=== PATIENT | female | born 1980 | race African-American/Black ===

== ENCOUNTER 2017-03-03 18:42 | Inpatient (IN) ==
[2017-03-03] MEDS ORDERED: ALBUTEROL/IPRATROPIUM 3 ML NEB RESP TX STA (19:28)
[2017-03-03] MEDS ORDERED: ONDANSETRON 4 MG/2 ML VIAL IV STA (19:28)
--- NOTE | 2017-03-03 19:34 | Emergency Department Note ---
Arrival - Arrival Chief Complaint: Upper Respiratory Stated Complaint: cold/hot at the same time ED Nursing Triage Note: C/O Productive cough with green sputum/ body aches and sorethroat. Onset 2-3 days ago. Pt denies fever. Pt reports that she does PD and reports that she has not had abd pain or cloudy dialysate Mode of Arrival: Wheelchair Limitations: No Limitations Source: Patient Time Seen by Provider: 03/03/17 19:28 - History of Present Illness HPI Narrative: This 36-year-old black female home peritoneal dialysis patient presents with 3 days of body aches, chills, productive cough of discolored sputum, shortness of breath, and sore throat. Patient has not had any significant temperature spikes , chest pain, nausea, or vomiting. She states she has had no difficulty with peritoneal dialysis in the last several days and does not have any complaints referred to the abdomen. She is on dialysis for lupus treated with Plaquenil and steroids and is anuric. Currently she does appear uncomfortable. Onset (ago): day(s) (Patient presents 3 days post onset of symptoms) Date of Last Menstrual Period: one week ago Allergies/Adverse Reactions: Allergies Allergy/AdvReac Type Severity Reaction Status Date / Time No Known Allergies Allergy Verified 03/03/17 19:03 Home Medications: Home Medications Medication Instructions Recorded Confirmed Type Aspirin [Children's Aspirin] 81 mg PO DAILY 12/25/14 11/25/16 History Docusate Sodium 100 mg PO DAILY 12/25/14 11/25/16 History Ferrous Sulfate [Ferrous Sulfate 325 mg PO DAILY 12/25/14 11/25/16 History Cap] Hydroxychloroquine [Plaquenil] 200 mg PO DAILY 12/25/14 11/25/16 History Sevelamer Carbonate [Renvela] 800 mg PO TID 12/25/14 11/25/16 History predniSONE [Alesha] 5 mg PO DAILY 12/25/14 11/25/16 History Calcium Acetate 667 mg PO TID 12/31/15 11/25/16 History Methoxy Peg-Epoetin Beta [Mircera] 1 vial IM DIRECTED 12/31/15 11/25/16 History Levothyroxine Tab [Synthroid Tab] 200 mcg PO DAILY@0700 01/12/16 11/25/16 History Calcitriol [Rocaltrol] 0.5 mcg PO BEDTIME 06/30/16 11/25/16 History Multivitamin (Berocca) [Berocca] 1 tablet PO DAILY 06/30/16 11/25/16 History Metoprolol Succinate Xl [Toprol Xl] 25 mg PO BID #60 tablet 07/12/16 11/25/16 Rx HYDROcodone/ACETAMIN 7.5-325 1 tablet PO Q6H PRN #10 11/25/16 Rx [[place] 7.5-325] Sulfameth/Trimeth 800-160 Tab 1 tablet PO BID #28 tablet 11/25/16 Rx [Bactrim DS Tab] Review of System - Review of System 12 point system: reviewed and no additional remarkable complaints except as stated - Review of System Constitutional: Present: as per HPI Respiratory: Present: as per HPI Cardiovascular: Present: as per HPI Gastrointestinal: Present: as per HPI Medical,Surgical,& Family Hx - Medical History Cardio: History of: CHF (and cardiomyopathy), Cardiovascular Problems (sbp normally 80s) No history of: CAD, Hypertension, [place] Neurology: History of: Peripheral Neuropathy No history of: Seizures Endocrine: History of: Thyroid Disorder (hypothyroidism) Rheumatology: History of;: Systemic Lupus Erythematosus, Rheumatological Problems (lupus) Renal: History of: Dialysis (end-stage renal disease secondary to SLE, Peritoneal DIALYSIS qid), Renal Failure (secondary to lupus) Musculoskeletal: History of: Degenerative Disk Disease (DJD) No history of: Amputation Hematology: History of: Anemia Reproductive: History of: Ovarian Cysts, Complication (HIGH RISK, GESTATION HYPERTENSION) Other: History of: Miscellaneous Medical Problems (peritonitis) - Surgical History Cardiac Surgeries: Patient Denies: Cardiac Catheterization Neurologic Surgeries: Patient denies: Neurologic Surgery HEENT Surgeries: Surgical HX of: Thyroid Surgery (Parathyroidectomy 01/01) Abdominal Surgeries: Surgical HX of: Cholecystectomy, Colonoscopy, EGD Reproductive Surgeries: Surgical HX of;: Gynecologic Surgery (CYSTs removed from RIGHT OVARY), Hysterectomy, Tubal Ligation - Family History Family History: Reports;: Family Cancer (G[place]other), Family Diabetes ([place]other) - Social History Smoking Status: Never smoker Frequency of Alcohol Use: None Type of Drug Use: None Exam Physical Examination: GENERAL: Well developed, well nourished black in no acute distress. HEENT: Normocephalic. No trauma. Moist mucous membranes. EOMI. PERRLA. ENT ears clear, throat injected, nose reveals nasal mucosa erythema and edema NECK: Supple. Cervical adenopathy. CARDIAC: Regular. No murmurs. CHEST: Scattered rhonchi. No respiratory distress. O2 sat 99% ABDOMEN: Soft. Nontender. Active bowel sounds. Clean dialysis site EXTREMITIES: No trauma. Normal ROM. No pedal edema. SKIN: No diaphoresis. No rash. NEURO: Alert. Neuro intact no focal deficits. Vital Signs: Vital Signs Temperature 98.9 F 03/03/17 19:20 Pulse Rate 122 H 03/03/17 19:20 Respiratory Rate 20 03/03/17 19:20 Blood Pressure 87/64 03/03/17 19:20 O2 Sat by Pulse Oximetry 100 03/03/17 20:16 Course - Reevaluation(s) Reevaluation #1: Discussed with patient the need for admission with bilateral infiltrates and current symptoms. - Consultations Consultation #1: Discussed with hospitalist service who will admit for further evaluation treatment peer Results - Labs CBC & BMP: 03/03/17 19:50 03/03/17 19:50 Lab Results: I have reviewed the patients labs Labs: I reviewed the laboratory noted the expected anemia and renal numbers due to dialysis - Impressions EKG: Sinus tachycardia with normal MD interval and QRS duration with left atrial enlargement and diffuse nonspecific ST changes but no acute injury pattern noted - Diagnostic Findings Procedure: Chest x-ray: image reviewed by me, report reviewed by me (Chronic left hemidiaphragm elevation with increasing opacification within bilateral infiltrates) Disposition Clinical Impression: Bilateral infiltrates, Peritoneal dialysis dependent renal fail, Systemic lupus , Hypothyroidism Case discussed with: patient Disposition: Still a Patient Condition: Guarded Time of Disposition: 21:09
[2017-03-03] MEDS ORDERED: LEVOFLOXACIN INJ 750 MG in PREMIX 1 EACH IV STA (19:35)
[2017-03-03] MEDS ORDERED: KETOROLAC 30 MG/1 ML VIAL IV STA (19:35)
[2017-03-03 20:13] LABS: Basophils % 0.5 % (0.0-0.8); Eosinophils # 0.2 10*3/uL (0.0-0.87); Eosinophils % 2.7 % (0.00-10.9); Immature Granulocytes % 0.5 %; Immature Granulocytes Absolute 0.03 #; Lymphocytes # 1.1 10*3/uL (1.4-4.0); Mean Corpuscular HGB Conc 36.7 GM/DL (32-36); Mean Corpuscular Hemoglobin 32 PG (27-34); Mean Platelet Volume 10.7 FL (9.6-12.0); Monocytes # 1.3 10*3/uL (0.11-0.8); Monocytes % 21.8 % (1.7-12.7); Neutrophils # 3.2 10*3/uL (1.4-7.4); Neutrophils % 55.5 % (38.7-73.9); Platelet Count 311 T/CUMM (130-400); Red Blood Count 3.49 MC/CUMM (3.8-5.5); Red Cell Distribution Width 16.7 % (9.3-17.3); White Blood Count 5.8 T/CUMM (4-12)
[2017-03-03] MEDS ORDERED: LEVOFLOXACIN INJ 150 ML IV ONE (20:15)
[2017-03-03] MEDS ORDERED: ONDANSETRON 4 MG/2 ML VIAL ONE (20:15)
[2017-03-03] MEDS ORDERED: KETOROLAC 30 MG/1 ML VIAL ONE (20:15)
--- NOTE | 2017-03-03 20:21 | EKG Report ---
Stationary ECG Study [facility] ER Test Date: 03/03/2017 8:20:48 PM Pat Name: REBECCA MANZANO Department: Room: Gender: F [employer]: : 1980 Requested by: Cuco Son Order Number: [id number] Reading MD: CARMEN BINGHAM Intervals [place] Rate: 111 P: 30 SD: 112 QRS: 37 QRSD: 90 T: 186 QT: 358 QTc: 424 Interpretive Statements SINUS TACHYCARDIA WITH SHORT SD INTERVAL POSSIBLE LEFT ATRIAL ENLARGEMENT ST DEVIATION AND MODERATE T-WAVE ABNORMALITY, CONSIDER ANTEROLATERAL ISCHEMIA Electronically Signed On 03-04-17 11:21:06 CDT by CARMEN BINGHAM [email or web address]
[2017-03-03 20:25] LABS: INR 1.1; PT Patient Result 11.3 SECS; Partial Thromboplastin Time 29.7 SECS (0-40)
[2017-03-03 20:37] LABS: Alanine Aminotransferase 11 U/L (13-56); Albumin 2.8 G/DL (3.4-5.0); Alkaline Phosphatase 59 U/L (45-117); Aspartate Amino Transferase 13 U/L (0-37); Bilirubin,Total < 0.39 MG/DL (0.2-1.0); Blood Urea Nitrogen 71 MG/DL (7-18); Calcium 7.6 MG/DL (8.5-10.1); Glucose 110 MG/DL (74-106); Osmolality,Calculated 285.5 MOS/KG (273-304); Potassium 5.1 MMOL/L (3.5-5.1); Sodium 132 MMOL/L (136-145); Total Protein 6.8 G/DL (6.4-8.3); Troponin I Only 0.032 NG/ML (0.00-0.045)
[2017-03-03] MEDS ORDERED: methylPREDNISolone SOD SUC 125 MG/2 ML VIAL IV STA (20:57)
--- NOTE | 2017-03-03 20:58 | XRay Report ---
2 view chest. Indication: Shortness of breath. Comparison: July 12, 2016. The heart is enlarged. The pulmonary vasculature is normal. There is stable elevation of the left hemidiaphragm, with prominent gaseous distention of bowel beneath it. Within the lung bell, there are patchy areas of parenchymal opacity which have been present and becoming more progressively prominent over the last several years. The most recent CT of the abdomen and pelvis show development of calcification within the included infiltrates on that study. Surgical clips are noted in the right upper quadrant. There is no pneumothorax or pleural effusion. Impression: Chronic elevation of the left hemidiaphragm. Progressively increasing opacities within focal infiltrates bilaterally. PROCEDURE INTERPRETED AT [facility] DEPARTMENT OF RADIOLOGY Final Report Signed by: Dr. Jennifer Bhatia
[2017-03-03 21:04] LABS: Eosinophils 5 % (0-10); Lymphocytes 20 % (20-55); Platelet Estimate Normal; Segmented Neutrophils 62 % (50-85); Total Cells Counted 100
[2017-03-03] MEDS ORDERED: methylPREDNISolone SOD SUC 125 MG/2 ML VIAL ONE (21:51)
[2017-03-03] MEDS ORDERED: VANCOMYCIN INJ 1,000 MG in SODIUM CHLORIDE 0.9% 250 ML IV ONE (22:01)
[2017-03-03] MEDS: ALBUTEROL/IPRATROPIUM 3 ML NEB RESP TX SCH (23:12)
--- NOTE | 2017-03-03 23:13 | Hospitalist History & Physical ---
Assessment and Plan - Time spent with patient Time spent with patient: Greater than 30 minutes (1) Pneumonia Status: Acute Assessment and plan: Admit to hospitalist services. CXR showed bilateral infiltrates. Blood cultures were drawn in ED; follow. Levaquin 750 mg IV given in ED. Give Vancomycin 1 gram IV x 1 dose. DuoNeb treatment q 4 hours. Troponin was 0.032 in ED; check serial troponins. Recheck CBC in am. Current Visit: Yes (2) Lupus (systemic lupus erythematosus) Status: Chronic Assessment and plan: Solumedrol 125mg IV x 1 dose given in ED. Continue home dose of Prednisone 5 mg PO daily. Continue home dose of Plaquenil. Current Visit: Yes (3) End stage renal disease Status: Chronic Assessment and plan: Patient has been previously seen by Dr. Gomes. Consult Dr. Gomes. Continue peritoneal dialysis per current home protocol. Continue home dose of Calcium acetate, Iron, Renvela, and Mircera. Recheck BMP in am. Current Visit: Yes (4) Hypothyroidism Status: Chronic Assessment and plan: Continue home dose of Synthroid. Current Visit: Yes (5) Anemia Status: Chronic Assessment and plan: Continue home dose of Iron and Mircera. Recheck CBC in am. Current Visit: No (6) DVT prophylaxis Status: Acute Assessment and plan: Lovenox 30 mg SQ daily. Current Visit: Yes History of Present Illness Chief complaint: SOB, cough History of present illness: Ms. Jacome is a 36 year old female with a past medical history significant for Lupus, CHF, CKD with home peritoneal dialysis, and hypothyroidism who presented to the ED tonight with complaints of worsening shortness of breath x 2 days and cough with green sputum production. She also has complaints of chest tightness, nasal congestion, bilateral ear discomfort, throat discomfort, nausea, chills, and generalized body aches. She denies known fever, vomiting or diarrhea. In the ED, her CXR showed, "Chronic elevation of the left hemidiaphram. Progressively increasing opacities within focal infiltrates bilaterally." Hospitalist services were consulted, and the patient will be admitted for further evaluation and treatment. Home Medications Medication Instructions Recorded Confirmed Type Aspirin [Children's Aspirin] 81 mg PO DAILY 12/25/14 03/03/17 History Docusate Sodium 100 mg PO DAILY 12/25/14 03/03/17 History Ferrous Sulfate [Ferrous Sulfate 325 mg PO DAILY 12/25/14 03/03/17 History Cap] Hydroxychloroquine [Plaquenil] 200 mg PO DAILY 12/25/14 03/03/17 History Sevelamer Carbonate [Renvela] 800 mg PO TID 12/25/14 03/03/17 History predniSONE [Alesha] 5 mg PO DAILY 12/25/14 03/03/17 History Calcium Acetate 667 mg PO TID 12/31/15 03/03/17 History Methoxy Peg-Epoetin Beta [Mircera] 1 vial IM DIRECTED 12/31/15 03/03/17 History Levothyroxine Tab [Synthroid Tab] 200 mcg PO DAILY@0700 01/12/16 03/03/17 History Calcitriol [Rocaltrol] 0.5 mcg PO BEDTIME 06/30/16 03/03/17 History Multivitamin (Berocca) [Berocca] 1 tablet PO DAILY 06/30/16 03/03/17 History Metoprolol Succinate Xl [Toprol Xl] 25 mg PO BID #60 tablet 07/12/16 03/03/17 Rx HYDROcodone/ACETAMIN 7.5-325 1 tablet PO Q6H PRN #10 11/25/16 03/03/17 Rx [[place] 7.5-325] Allergies Allergy/AdvReac Type Severity Reaction Status Date / Time No Known Allergies Allergy Verified 03/03/17 19:03 Medical,Surgical,& Family Hx - Medical History Cardio: History of: CHF (and cardiomyopathy), Cardiovascular Problems (sbp normally 80s; CHF) No history of: CAD, Hypertension, [place] Neurology: History of: Peripheral Neuropathy No history of: Seizures Endocrine: History of: Thyroid Disorder (hypothyroidism) Rheumatology: History of;: Systemic Lupus Erythematosus, Rheumatological Problems (lupus) Renal: History of: Dialysis (end-stage renal disease secondary to SLE, Peritoneal DIALYSIS qid), Renal Failure (secondary to lupus) Musculoskeletal: History of: Degenerative Disk Disease (DJD) No history of: Amputation Hematology: History of: Anemia Reproductive: History of: Ovarian Cysts, Complication (HIGH RISK, GESTATION HYPERTENSION) Other: History of: Miscellaneous Medical Problems (peritonitis) - Surgical History Cardiac Surgeries: Patient Denies: Cardiac Catheterization Neurologic Surgeries: Patient denies: Neurologic Surgery HEENT Surgeries: Surgical HX of: Thyroid Surgery (Parathyroidectomy 01/01) Abdominal Surgeries: Surgical HX of: Cholecystectomy, Colonoscopy, EGD Reproductive Surgeries: Surgical HX of;: Gynecologic Surgery (CYSTs removed from RIGHT OVARY), Hysterectomy, Tubal Ligation - Family History Family History: Reports;: Family Cancer ([place]other), Family Diabetes ([place]), Family Hypertension, Additional Family History (Hypothyroidism) - Social History Smoking Status: Never smoker Frequency of Alcohol Use: None Type of Drug Use: None Marital Status: Legally Lives With:: Children Functional capacity: independent ambulation 12 point system: reviewed and no additional remarkable complaints except as stated - Constitutional Constitutional: Present: chills, malaise. Absent: fever(s) - EENT Eyes: Absent: blurry vision, diplopia, loss of vision Ears: Present: ear pain (bilateral). Absent: decreased hearing, ear discharge Nose, mouth and throat: Present: nasal congestion, sore throat. Absent: headache(s) - Cardiovascular Cardiovascular: Present: chest pain at rest (Reported as midsternal and feeling of tightness. ), dyspnea. Absent: edema, orthopnea, palpitations - Respiratory Respiratory: Present: cough, dyspnea, change in phlegm color (green) - Gastrointestinal Gastrointestinal: Present: nausea. Absent: abdominal pain, diarrhea, vomiting - Genitourinary Genitourinary: Absent: dysuria, flank pain - Musculoskeletal Musculoskeletal: Present: myalgias (generalized aches). Absent: arthralgias, joint swelling, muscle weakness - Neurological Neurological: Absent: dizziness, numbness, paresthesias, syncope - Psychiatric Psychiatric: Absent: anxiety, depression - Endocrine Endocrine: Present: cold intolerance. Absent: polydipsia, polyphagia, polyuria - Hematologic/Lymphatic Hematologic/Lymphatic: Absent: easy bleeding, easy bruising Exam - Constitutional Vitals: Period Temp Pulse Resp BP Sys/Gordon Pulse Ox Last 24 Hr 97.4 F-98.9 F 89-122 18-24 85-103/53-70 97-100 Exam: Constitutional System: Afebrile. Awake, alert and oriented x 3. Mild distress. No tremulousness. Head: Normocephalic, atraumatic. Ears, Nose and Throat System: Bilateral ear discomfort reported; TM normal. Nasal congestion noted. No epistaxis or discharge. Mild erythema of throat; no exudate. Eyes System: Pupils equal, round, and reactive. Extraocular muscles intact. Neck: Supple, without adenopathy, No jugular venous distention. No thyromegaly, neck mass, or prior surgery apparent. Respiratory System: Coarse right posterior breath sounds; Diminished left posterior breath sounds. Cough present. Cardiovascular System: Heart with tachycardic rate and regular rhythm. No murmur. GI System: Abdomen soft, nontender. Normo active bowel sounds present. Musculoskeletal System: Limbs with no pedal edema. Full distal pulses. Normal capillary refill. Neurological System: No discernable sensory deficit. No aphasia Psychiatric System: Conversation is rational Results - Labs CBC & BMP: 03/03/17 19:50 03/03/17 19:50 Lab Results: I have reviewed the past 24 hour labs - Diagnostic Findings Procedure: Chest x-ray: report reviewed by me (Reviewed by me. )
[2017-03-03] MEDS ORDERED: [UNRECOGNIZED DRUG - OTHER] IM SCH (23:15)
[2017-03-04] MEDS: ONDANSETRON 4 MG/2 ML VIAL IV PRN ×3 (01:35→18:58)
[2017-03-04] MEDS: ALBUTEROL/IPRATROPIUM 3 ML NEB RESP TX SCH ×6 (03:14→23:47)
[2017-03-04 04:30] LABS: Basophils % 0.3 % (0.0-0.8); Eosinophils % 0.3 % (0.00-10.9); Hemoglobin 10.4 GM/DL (12.0-16.0); Immature Granulocytes % 0.8 %; Immature Granulocytes Absolute 0.03 #; Lymphocytes # 0.4 10*3/uL (1.4-4.0); Lymphocytes % 11.1 % (21.3-54.2); Mean Corpuscular HGB Conc 35.9 GM/DL (32-36); Mean Corpuscular Hemoglobin 31 PG (27-34); Mean Corpuscular Volume 86.6 FL (87-102); Mean Platelet Volume 11.2 FL (9.6-12.0); Monocytes # 0.1 10*3/uL (0.11-0.8); Monocytes % 1.9 % (1.7-12.7); Neutrophils # 3.2 10*3/uL (1.4-7.4); Neutrophils % 85.6 % (38.7-73.9); Platelet Count 303 T/CUMM (130-400); Red Blood Count 3.35 MC/CUMM (3.8-5.5); Red Cell Distribution Width 16.6 % (9.3-17.3); White Blood Count 3.8 T/CUMM (4-12)
[2017-03-04 04:50] LABS: Calcium 7.3 MG/DL (8.5-10.1); Osmolality,Calculated 289.5 MOS/KG (273-304); Potassium 5.6 MMOL/L (3.5-5.1)
[2017-03-04 05:47] LABS: Platelet Estimate Normal; Tear Drop Cells Few
[2017-03-04] MEDS: LEVOTHYROXINE 200 MCG TABLET PO SCH (06:26)
[2017-03-04] MEDS: MULTIVITAMIN (BEROCCA) TABLET PO SCH (08:57)
[2017-03-04] MEDS: HYDROXYCHLOROQUINE 200 MG TABLET PO SCH (08:57)
[2017-03-04] MEDS: predniSONE 5 MG TABLET PO SCH (08:58)
[2017-03-04] MEDS: ASPIRIN CHEW 81 MG TABLET PO SCH (08:58)
[2017-03-04] MEDS: FERROUS SULFATE 325 MG TABLET PO SCH (08:58)
[2017-03-04] MEDS: CALCIUM ACETATE 667 MG CAPSULE PO SCH ×3 (09:00→20:54)
[2017-03-04] MEDS: ENOXAPARIN 30 MG/0.3 ML SYRINGE SUBCUT SCH (09:00)
[2017-03-04] MEDS: SEVELAMER CARBONATE 800 MG TABLET PO SCH ×3 (09:00→20:54)
[2017-03-04] MEDS: METOPROLOL SUCCINATE XL 25 MG TABLET PO SCH ×2 (10:49→20:55)
--- NOTE | 2017-03-04 12:04 | Nephrology Consult Note ---
History of Present Illness Chief complaint: esrd History of present illness: Ms. Jacome is a 36 year old female with end-stage renal disease who manages that with peritoneal dialysis at home. She presented to the emergency room complaining of chills and subjective fever and shortness of breath. She says she will be she was short of breath at rest and with minimal exertion. She has had a parathyroidectomy for secondary hyperparathyroidism and did well with that. She has previously been noted to have pulmonary infiltrates which are more prominent with current chest x-ray. There is no evidence of volume overload on exam or chest x-ray. Her chest is clear and she has no peripheral edema peritoneal dialysis catheter is clean and there is no drainage. Chest x-ray demonstrates scattered pulmonary infiltrates with some increasing amounts of calcium and the infiltrates. Impression end-stage renal disease on hemodialysis #2 shortness of breath with scattered pulmonary infiltrates. Plan we will continue with her peritoneal dialysis and pulmonary has been asked to evaluate. Home Medications Medication Instructions Recorded Confirmed Type Aspirin [Children's Aspirin] 81 mg PO DAILY 12/25/14 03/03/17 History Docusate Sodium 100 mg PO DAILY 12/25/14 03/03/17 History Ferrous Sulfate [Ferrous Sulfate 325 mg PO DAILY 12/25/14 03/03/17 History Cap] Hydroxychloroquine [Plaquenil] 200 mg PO DAILY 12/25/14 03/03/17 History Sevelamer Carbonate [Renvela] 800 mg PO TID 12/25/14 03/03/17 History predniSONE [Alesha] 5 mg PO DAILY 12/25/14 03/03/17 History Calcium Acetate 667 mg PO TID 12/31/15 03/03/17 History Methoxy Peg-Epoetin Beta [Mircera] 1 vial IM DIRECTED 12/31/15 03/03/17 History Levothyroxine Tab [Synthroid Tab] 200 mcg PO DAILY@0700 01/12/16 03/03/17 History Calcitriol [Rocaltrol] 0.5 mcg PO BEDTIME 06/30/16 03/03/17 History Multivitamin (Berocca) [Berocca] 1 tablet PO DAILY 06/30/16 03/03/17 History Metoprolol Succinate Xl [Toprol Xl] 25 mg PO BID #60 tablet 07/12/16 03/03/17 Rx HYDROcodone/ACETAMIN 7.5-325 1 tablet PO Q6H PRN #10 11/25/16 03/03/17 Rx [[place] 7.5-325] Allergies Allergy/AdvReac Type Severity Reaction Status Date / Time No Known Allergies Allergy Verified 03/03/17 19:03 Medical,Surgical,& Family Hx - Medical History Cardio: History of: CHF (and cardiomyopathy), Cardiovascular Problems (sbp normally 80s; CHF) No history of: CAD, Hypertension, [place] Neurology: History of: Peripheral Neuropathy No history of: Seizures Endocrine: History of: Thyroid Disorder (hypothyroidism) Rheumatology: History of;: Systemic Lupus Erythematosus, Rheumatological Problems (lupus) Renal: History of: Dialysis (end-stage renal disease secondary to SLE, Peritoneal DIALYSIS qid), Renal Failure (secondary to lupus) Musculoskeletal: History of: Degenerative Disk Disease (DJD) No history of: Amputation Hematology: History of: Anemia Reproductive: History of: Ovarian Cysts, Complication (HIGH RISK, GESTATION HYPERTENSION) Other: History of: Miscellaneous Medical Problems (peritonitis) - Surgical History Cardiac Surgeries: Patient Denies: Cardiac Catheterization Neurologic Surgeries: Patient denies: Neurologic Surgery HEENT Surgeries: Surgical HX of: Thyroid Surgery (Parathyroidectomy 01/01) Abdominal Surgeries: Surgical HX of: Cholecystectomy, Colonoscopy, EGD Reproductive Surgeries: Surgical HX of;: Gynecologic Surgery (CYSTs removed from RIGHT OVARY), Hysterectomy, Tubal Ligation - Family History Family History: Reports;: Family Cancer (G[place]other), Family Diabetes ([place]), Family Hypertension, Additional Family History (Hypothyroidism) - Social History Smoking Status: Never smoker Frequency of Alcohol Use: None Type of Drug Use: None Review of Systems 12 point system: reviewed and no additional remarkable complaints except as stated Exam - Vital Signs Vital signs: Period Temp Pulse Resp BP Sys/Gordon Pulse Ox Last 24 Hr 96.2 F-98.9 F 80-122 16-24 85-103/50-70 94-100 - General Appearance General appearance: well-developed, well-nourished, appears started age EENT: ATNC Neck: no JVD, no thyromegaly, no carotid bruit, supple Respiratory: no kyphosis, no scoliosis Cardiology: no murmurs, no rub, no gallops, no edema, regular rate, regular rhythm, normal S1, normal S2 Gastrointestinal: normoactive bowel sounds Integumentary: no rash, warm and dry Neurologic: no focal deficit, no asterixis, alert and oriented x3, reflexes 2+ and symmetric, gait normal, strength 5/5 Musculoskeletal: no deformities, no erythema, no cyanosis, no clubbing Psychiatric: mood/affect appropriate, cooperative Results - Labs CBC & BMP: 03/04/17 02:56 03/04/17 02:56 Assessment and Plan (1) End stage renal disease Status: Chronic Assessment and plan: On peritoneal dialysis. We will continue that Current Visit: Yes (2) Pulmonary infiltrates Status: Acute Current Visit: Yes Specialty Discharge - Follow Up or Referrals - Speciality Discharge Instructions Nephrology Instructions: Continue peritoneal dialysis
--- NOTE | 2017-03-04 12:32 | Pulmonology Consult Note ---
Assessment and Plan (1) End stage renal disease Status: Chronic Assessment and plan: Patient getting peritoneal dialysis. No signs of any infection. Current Visit: Yes (2) Cardiomyopathy Status: Chronic Assessment and plan: History of congestive heart failure but does not appear to be in failure at this time. Current Visit: No (3) Lupus (systemic lupus erythematosus) Status: Chronic Assessment and plan: Apparently the underlying cause for her renal failure. Current Visit: Yes (4) Pulmonary infiltrates Status: Acute Assessment and plan: She has patchy bilateral pulmonary infiltrates that are fairly dense suggesting that there may be small calcifications but I cannot say that for sure. One in the left upper lobe does appear to be more prominent. Based on her history of cough and chills I think she has a bronchopneumonia. Would treat her as such. Probably will need a CT scan in a few days. I would favor old granulomatous disease for most of what we are seeing. She also has a chronically elevated left diaphragm. Current Visit: Yes History of Present Illness Chief complaint: Chills cough History of present illness: Ms. Jacome is a 36 year old female who has end-stage renal disease on peritoneal dialysis. History of lupus and has had congestive heart failure in the past. She comes in now with a few days of chills and a cough. She is a little more short of breath than usual. She has not had any angina but she has had some body aches. Chest x-ray show some patchy infiltrates in both upper lobes. These appear to have been there on x-rays earlier this year the one on the left side may be a little bit more apparent now. There were small areas there on the CT last year. Home Medications Medication Instructions Recorded Confirmed Type Aspirin [Children's Aspirin] 81 mg PO DAILY 12/25/14 03/03/17 History Docusate Sodium 100 mg PO DAILY 12/25/14 03/03/17 History Ferrous Sulfate [Ferrous Sulfate 325 mg PO DAILY 12/25/14 03/03/17 History Cap] Hydroxychloroquine [Plaquenil] 200 mg PO DAILY 12/25/14 03/03/17 History Sevelamer Carbonate [Renvela] 800 mg PO TID 12/25/14 03/03/17 History predniSONE [Alesha] 5 mg PO DAILY 12/25/14 03/03/17 History Calcium Acetate 667 mg PO TID 12/31/15 03/03/17 History Methoxy Peg-Epoetin Beta [Mircera] 1 vial IM DIRECTED 12/31/15 03/03/17 History Levothyroxine Tab [Synthroid Tab] 200 mcg PO DAILY@0700 01/12/16 03/03/17 History Calcitriol [Rocaltrol] 0.5 mcg PO BEDTIME 06/30/16 03/03/17 History Multivitamin (Berocca) [Berocca] 1 tablet PO DAILY 06/30/16 03/03/17 History Metoprolol Succinate Xl [Toprol Xl] 25 mg PO BID #60 tablet 07/12/16 03/03/17 Rx HYDROcodone/ACETAMIN 7.5-325 1 tablet PO Q6H PRN #10 11/25/16 03/03/17 Rx [[place] 7.5-325] Allergies Allergy/AdvReac Type Severity Reaction Status Date / Time No Known Allergies Allergy Verified 03/03/17 19:03 12 point system: reviewed and no additional remarkable complaints except as stated - Constitutional Constitutional: Present: chills - Cardiovascular Cardiovascular: Present: dyspnea, dyspnea on exertion - Respiratory Respiratory: Present: cough, dyspnea, dyspnea on exertion Exam (Pulmonay) H&P - Constitutional Vitals: Period Temp Pulse Resp BP Sys/Gordon Pulse Ox Last 24 Hr 96.2 F-98.9 F 80-122 16-24 85-103/50-70 94-100 Exam: Patient is alert. Vital signs normal. Pupils react to light. Throat is clear. Neck supple no bruits. Chest shows a few rhonchi in the upper lobes bilaterally. Heart normal rate rhythm no murmurs. Abdomen is soft. She has some distention and she is getting peritoneal dialysis at present. Nontender. Extremities no clubbing cyanosis or edema. Calves nontender. Medical,Surgical,& Family Hx - Medical History Cardio: History of: CHF (and cardiomyopathy), Cardiovascular Problems (sbp normally 80s; CHF) No history of: CAD, Hypertension, [place] Neurology: History of: Peripheral Neuropathy No history of: Seizures Endocrine: History of: Thyroid Disorder (hypothyroidism) Rheumatology: History of;: Systemic Lupus Erythematosus, Rheumatological Problems (lupus) Renal: History of: Dialysis (end-stage renal disease secondary to SLE, Peritoneal DIALYSIS qid), Renal Failure (secondary to lupus) Musculoskeletal: History of: Degenerative Disk Disease (DJD) No history of: Amputation Hematology: History of: Anemia Reproductive: History of: Ovarian Cysts, Complication (HIGH RISK, GESTATION HYPERTENSION) Other: History of: Miscellaneous Medical Problems (peritonitis) - Surgical History Cardiac Surgeries: Patient Denies: Cardiac Catheterization Neurologic Surgeries: Patient denies: Neurologic Surgery HEENT Surgeries: Surgical HX of: Thyroid Surgery (Parathyroidectomy 01/01) Abdominal Surgeries: Surgical HX of: Cholecystectomy, Colonoscopy, EGD Reproductive Surgeries: Surgical HX of;: Gynecologic Surgery (CYSTs removed from RIGHT OVARY), Hysterectomy, Tubal Ligation - Family History Family History: Reports;: Family Cancer ([place]), Family Diabetes ([place]), Family Hypertension, Additional Family History (Hypothyroidism) - Social History Smoking Status: Never smoker Frequency of Alcohol Use: None Type of Drug Use: None Results - Labs CBC & BMP: 03/04/17 02:56 03/04/17 02:56 Lab Results: I have reviewed the past 24 hour labs - Diagnostic Findings Procedure: Chest x-ray: image reviewed by me (Patchy alveolar infiltrates bilaterally in the upper lobes. The 2 on the right appear to be similar to previous x-rays June this year. The left upper lobe infiltrate is new. Also has a chronically elevated left diaphragm)
--- NOTE | 2017-03-04 15:40 | Hospitalist Progress Note ---
Assessment and Plan (1) Cardiomyopathy Status: Chronic Assessment and plan: Patient is not in acute failure at this time. Therefore just continue home medications. Current Visit: No (2) Lupus (systemic lupus erythematosus) Status: Chronic Assessment and plan: Wire were treating the pulmonary infiltrates as infection this could be a contributor or cause of those infiltrates. Current Visit: Yes (3) Pulmonary infiltrates Status: Acute Assessment and plan: Lung: Atypical infiltrates atypical community-acquired infection. I am giving him azithromycin 500 mg IV daily. Current Visit: Yes Hospitalist: Subjective Interval history: Seen interviewed and examined and chart has been admitted to the hospital with bilateral pneumonias with shortness of breath. Blood cultures done at admission are pending at this time. Patient is on treatment. The patient can guess this was likely an atypical pneumonia from the community. Patient is too early if we check IgM IgG will have to check convalescent titers which were of value depending on hospital treatment. She will be any questions later on however that can be decided Exam - Constitutional Vitals: Period Temp Pulse Resp BP Sys/Gordon Pulse Ox Last 24 Hr 96.2 F-98.9 F 80-122 16-24 85-103/50-70 94-100 General appearance: over weight - Head Head exam: Present: normocephalic, atraumatic - ENT ENT exam: Present: normal exam - Respiratory Respiratory exam: Present: other (Bilateral basilar crackles noted) - Cardiovascular Cardiovascular exam: Present: regular rate and rhythm (History of peritoneal dialysis at home no signs of tenderness in the belly) - GI/Abdominal GI/Abdominal exam: Present: normal bowel sounds, soft - Neurological Exam Neurological exam: Present: alert, oriented X3, CN II-XII intact Results - Labs CBC & BMP: 03/04/17 02:56 03/04/17 02:56 Lab Results: I have reviewed the past 24 hour labs (Mild elevation in potassium. Hematocrit is optimal white count is not)
[2017-03-04] MEDS ORDERED: AZITHROMYCIN INJ 500 MG in SODIUM CHLORIDE 0.9% 250 ML IV SCH (16:00)
[2017-03-04] MEDS ORDERED: KETOROLAC 30 MG/1 ML VIAL IV ONE (18:14)
[2017-03-04] MEDS: CALCITRIOL 0.5 MCG CAPSULE PO SCH (20:54)
[2017-03-05] MEDS: ALBUTEROL/IPRATROPIUM 3 ML NEB RESP TX SCH ×6 (03:47→23:27)
[2017-03-05] MEDS: LEVOTHYROXINE 200 MCG TABLET PO SCH (05:59)
[2017-03-05] MEDS ORDERED: cefTRIAXone 1,000 MG in SODIUM CHLORIDE 0.9% 100 ML IV SCH (06:00)
[2017-03-05] MEDS ORDERED: AZITHROMYCIN INJ 500 MG in SODIUM CHLORIDE 0.9% 250 ML IV SCH (08:00)
[2017-03-05] MEDS: CALCIUM ACETATE 667 MG CAPSULE PO SCH ×3 (09:10→21:32)
[2017-03-05] MEDS: FERROUS SULFATE 325 MG TABLET PO SCH (09:10)
[2017-03-05] MEDS: ENOXAPARIN 30 MG/0.3 ML SYRINGE SUBCUT SCH (09:10)
[2017-03-05] MEDS: ASPIRIN CHEW 81 MG TABLET PO SCH (09:10)
[2017-03-05] MEDS: HYDROXYCHLOROQUINE 200 MG TABLET PO SCH (09:10)
[2017-03-05] MEDS: predniSONE 5 MG TABLET PO SCH (09:10)
[2017-03-05] MEDS: SEVELAMER CARBONATE 800 MG TABLET PO SCH ×3 (09:10→21:32)
[2017-03-05] MEDS: MULTIVITAMIN (BEROCCA) TABLET PO SCH (09:10)
[2017-03-05] MEDS: METOPROLOL SUCCINATE XL 25 MG TABLET PO SCH ×2 (09:11→21:32)
[2017-03-05] MEDS: ONDANSETRON 4 MG/2 ML VIAL IV PRN ×2 (09:18→21:00)
[2017-03-05] MEDS ORDERED: ACETAMINOPHEN 325 MG TABLET PO PRN (09:25)
--- NOTE | 2017-03-05 09:33 | Nephrology Progress Note ---
Nephrology - PN: Subj Interval history: Ms. Chu is seen in follow-up of her end-stage renal disease. She is doing well and does complain of body aches and wishes to take Tylenol for that. On occasion she takes [place] for that at home and we discourage that and she does not want to take it here because she is having some nausea. She was able to get up and walk yesterday without as much shortness of breath that she was having on admission. Plan is to continue antibiotic therapy for now and follow-up her pulmonary infiltrates. Exam (PN)-Nephrology - Vital Signs Vital signs: Period Temp Pulse Resp BP Sys/Gordon Pulse Ox Last 24 Hr 96.2 F-98.3 F 81-110 16-18 87-101/44-61 90-99 - Lab 03/04/17 02:56 03/04/17 02:56 Most recent lab results Calcium 7.3 MG/DL (8.5-10.1) L 03/04/17 02:56 Assessment and Plan (1) End stage renal disease Status: Chronic Assessment and plan: On peritoneal dialysis. We will continue that Current Visit: Yes (2) Pulmonary infiltrates Status: Acute Current Visit: Yes
--- NOTE | 2017-03-05 11:41 | Pulmonology Progress Note ---
Pulmonary - PN: Subj Interval history: This 36-year-old lady came in with patchy infiltrates bilaterally. Some of them have been there previously. The left-sided infiltrate is larger. Probably has acute pneumonia. Recommend treating her for the pneumonia. Get follow-up x-ray tomorrow. If she is doing better she could be discharged and I would see her back in 4-6 weeks with a chest x-ray with possible CT to follow that. Exam (Progress Note) - Constitutional Vitals: Period Temp Pulse Resp BP Sys/Gordon Pulse Ox Last 24 Hr 96.7 F-98.3 F 89-110 16-18 86-101/44-61 90-99 Exam: Patient is alert and oriented. Vital signs normal. Pupils react to light. Throat is clear. Neck supple no bruits. Chest sounds clear. Heart normal rate rhythm no murmurs. Abdomen soft no masses. Extremities no clubbing cyanosis or edema. Calves nontender. Results - Labs CBC & BMP: 03/04/17 02:56 03/04/17 02:56 Lab Results: I have reviewed the past 24 hour labs Assessment and Plan (1) End stage renal disease Status: Chronic Assessment and plan: Patient getting peritoneal dialysis. No signs of any infection. 03/05/2017 continuing peritoneal dialysis. Creatinine remains 25. Current Visit: Yes (2) Cardiomyopathy Status: Chronic Assessment and plan: History of congestive heart failure but does not appear to be in failure at this time. Current Visit: No (3) Lupus (systemic lupus erythematosus) Status: Chronic Assessment and plan: Apparently the underlying cause for her renal failure. Current Visit: Yes (4) Pulmonary infiltrates Status: Acute Assessment and plan: She has patchy bilateral pulmonary infiltrates that are fairly dense suggesting that there may be small calcifications but I cannot say that for sure. One in the left upper lobe does appear to be more prominent. Based on her history of cough and chills I think she has a bronchopneumonia. Would treat her as such. Probably will need a CT scan in a few days. I would favor old granulomatous disease for most of what we are seeing. She also has a chronically elevated left diaphragm. 03/05/2017 continuing treatment for probable bronchopneumonia in the left upper lobe. Follow-up x-ray tomorrow. Decide about discharge after that and have her come back to follow-up in a month to 6 weeks with chest x-ray and possible CT is to follow. Current Visit: Yes
--- NOTE | 2017-03-05 13:44 | Hospitalist Progress Note ---
Assessment and Plan (1) Cardiomyopathy Status: Chronic Assessment and plan: Patient is not in acute failure at this time. Therefore just continue home medications. Current Visit: No (2) Lupus (systemic lupus erythematosus) Status: Chronic Assessment and plan: Wire were treating the pulmonary infiltrates as infection this could be a contributor or cause of those infiltrates. Current Visit: Yes (3) Pulmonary infiltrates Status: Acute Assessment and plan: Seems to be responding to antibiotics. Her breathing is a lot better now. Will reassess the patient tomorrow and possibly change azithromycin to oral and finished 3 doses at home. Current Visit: Yes Hospitalist: Subjective Interval history: Patient seen interviewed and examined and chart has been reviewed. She has history of end-stage renal disease on peritoneal dialysis for about elevated BUN and creatinine. Nephrology is on the case and they are aware of this. Patient has no symptoms of uremia. Admitted to the hospital with a patchy infiltrates on the lungs. She is been put on azithromycin and seemed to be tolerating it well. Will be repeat chest x-ray tomorrow as already suggested by pulmonology. Patient continues to do this work clinic I think she can finish treatment of azithromycin orally at home. I will reassess the patient in the mouth in the morning and make that decision. Exam - Constitutional Vitals: Period Temp Pulse Resp BP Sys/Gordon Pulse Ox Last 24 Hr 96.7 F-98.3 F 78-110 16-18 83-101/44-61 90-99 General appearance: over weight - Head Head exam: Present: normocephalic, atraumatic - Eye Eye exam: Present: EOMI Pupils: Present: LAURYN - ENT ENT exam: Present: normal exam - Respiratory Respiratory exam: Present: clear to auscultation bilaterally - Cardiovascular Cardiovascular exam: Present: regular rate and rhythm - Extremities Exam Extremities exam: Present: full ROM - Neurological Exam Neurological exam: Present: alert, oriented X3, CN II-XII intact - Psychiatric Psychiatric exam: Present: normal affect, normal mood - Skin Skin exam: Present: normal color, warm, dry Results - Labs CBC & BMP: 03/04/17 02:56 03/04/17 02:56 Lab Results: I have reviewed the past 24 hour labs
[2017-03-05] MEDS: CALCITRIOL 0.5 MCG CAPSULE PO SCH (21:04)
[2017-03-06] MEDS ORDERED: KETOROLAC 15 MG/1 ML VIAL IV ONE (02:25)
[2017-03-06] MEDS ORDERED: ALUMINUM/MAGNES/SIMETH MAX STR 30 ML UDCUP PO PRN (02:25)
[2017-03-06] MEDS: ONDANSETRON 4 MG/2 ML VIAL IV PRN ×3 (02:42→21:06)
[2017-03-06] MEDS: ALBUTEROL/IPRATROPIUM 3 ML NEB RESP TX SCH ×5 (03:42→19:28)
[2017-03-06] MEDS: LEVOTHYROXINE 200 MCG TABLET PO SCH (06:07)
--- NOTE | 2017-03-06 06:16 | EKG Report ---
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
--- NOTE | 2017-03-06 08:29 | EKG Report ---
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
--- NOTE | 2017-03-06 08:34 | Pulmonology Progress Note ---
Pulmonary - PN: Subj Interval history: This 36-year-old lady came in with patchy infiltrates bilaterally. Some of them have been there previously. The left-sided infiltrate is larger. Probably has acute pneumonia. Recommend treating her for the pneumonia. Get follow-up x-ray tomorrow. If she is doing better she could be discharged and I would see her back in 4-6 weeks with a chest x-ray with possible CT to follow that. 03/06/2017 patient is feeling worse today. Complains of chest pressure. Troponins were negative. EKG shows nonspecific ST-T changes. Repeat chest x- ray is pending. Exam (Progress Note) - Constitutional Vitals: Period Temp Pulse Resp BP Sys/Gordon Pulse Ox Last 24 Hr 97.0 F-98.1 F 78-123 16-18 83-115/51-68 93-100 Exam: Patient is alert and oriented. Vital signs normal. Pupils react to light. Throat is clear. Neck supple no bruits. Chest sounds clear. Heart normal rate rhythm no murmurs. Abdomen soft no masses. Extremities no clubbing cyanosis or edema. Calves nontender. Results - Labs CBC & BMP: 03/04/17 02:56 03/04/17 02:56 Lab Results: I have reviewed the past 24 hour labs Assessment and Plan (1) End stage renal disease Status: Chronic Assessment and plan: Patient getting peritoneal dialysis. No signs of any infection. 03/05/2017 continuing peritoneal dialysis. Creatinine remains 25. 03/06/2017 continuing with peritoneal dialysis, creatinine related to 25. Defer to nephrology Current Visit: Yes (2) Cardiomyopathy Status: Chronic Assessment and plan: History of congestive heart failure but does not appear to be in failure at this time. 03/06/2017 chest x-ray pending. I do not hear rales. Current Visit: No (3) Lupus (systemic lupus erythematosus) Status: Chronic Assessment and plan: Apparently the underlying cause for her renal failure. Current Visit: Yes (4) Pulmonary infiltrates Status: Acute Assessment and plan: She has patchy bilateral pulmonary infiltrates that are fairly dense suggesting that there may be small calcifications but I cannot say that for sure. One in the left upper lobe does appear to be more prominent. Based on her history of cough and chills I think she has a bronchopneumonia. Would treat her as such. Probably will need a CT scan in a few days. I would favor old granulomatous disease for most of what we are seeing. She also has a chronically elevated left diaphragm. 03/05/2017 continuing treatment for probable bronchopneumonia in the left upper lobe. Follow-up x-ray tomorrow. Decide about discharge after that and have her come back to follow-up in a month to 6 weeks with chest x-ray and possible CT is to follow. 03/06/17 chest x-ray is pending. Current Visit: Yes
--- NOTE | 2017-03-06 08:44 | Hospitalist Progress Note ---
Assessment and Plan (1) Cardiomyopathy Status: Chronic Assessment and plan: Patient is not in acute failure at this time. Therefore just continue home medications. Current Visit: No (2) Lupus (systemic lupus erythematosus) Status: Chronic Assessment and plan: Wire were treating the pulmonary infiltrates as infection this could be a contributor or cause of those infiltrates. Current Visit: Yes (3) Pulmonary infiltrates Status: Acute Assessment and plan: Seems to be responding to antibiotics. Her breathing is a lot better now. Will reassess the patient tomorrow and possibly change azithromycin to oral and finished 3 doses at home. Current Visit: Yes (4) Chest pain Status: Acute Assessment and plan: Patient does have a substrate of atherosclerotic vascular disease. There are other comorbidities including systemic lupus erythematosus end-stage renal disease with possible uremia of which could cause shortness of breath and chest pressure pain. Patient has had an evolving EKG has been will be mentioned below echocardiogram will be ordered to evaluate pericardial space wall motion valvular structures and estimation of left ventricular function. Also get cardiology consultation. Current Visit: Yes (5) Lactic acidosis Status: Acute Assessment and plan: This could be a possibility of low flow state with hypotension post or sepsis. Patient denies abdominal pain she does have relatively low blood pressure this morning but have not stated her blood pressures went overnight since the time of her complaints. 2 sets of blood cultures have been obtained to repeat a lactic acid and 6 hours. Monitor vital signs closely put the patient on the monitor if the troponin is elevated further will be transferring the patient to CCU. I will be following up on the labs ordered within this hour. Current Visit: Yes Hospitalist: Subjective Interval history: Patient has been seen interviewed and examined. This morning she has had complaints of chest pain pressure. Reportedly this happened during the night is too. She is in the hospital with bilateral fluffy infiltrates some of them old. Also fevers and shortness of breath. She been treated as a community acquired pneumonia with resolution of those symptoms. The events of today that is in the past few hours. Her EKG did have straightening of the ST segment in the lateral leads during the night however done this morning because of inversion of T waves in those areas. A bit of ischemia and therefore a real thing here. Upon is all been ordered. Should be noted that this patient also has end-stage renal disease on peritoneal dialysis with an extremely high serum creatinine. Anemic pericardial effusion should also be considered here. Exam - Constitutional Vitals: Period Temp Pulse Resp BP Sys/Gordon Pulse Ox Last 24 Hr 97.0 F-98.1 F 78-123 16-18 83-115/51-68 93-100 General appearance: morbidly obese, other (Looks rather apprehensive.) - Head Head exam: Present: normocephalic, atraumatic - Eye Eye exam: Present: EOMI Pupils: Present: LAURYN - ENT ENT exam: Present: normal exam - Neck Neck exam: Present: other (No meningismus no venous distention is in the neck.) Results - Labs CBC & BMP: 03/04/17 02:56 03/04/17 02:56 Lab Results: I have reviewed the past 24 hour labs (Repeat CMP troponin CBC with 2 sets of blood cultures have been ordered. Overnight there was a rising lactic acid. Patient's blood pressure measured at my assessment was 100/80 ( narrow pulse pressure).)
[2017-03-06 08:54] LABS: Basophils # 0.1 10*3/uL (0.0-0.2); Basophils % 0.6 % (0.0-0.8); Eosinophils # 0.6 10*3/uL (0.0-0.87); Eosinophils % 6.7 % (0.00-10.9); Hematocrit 32.6 VOL% (35.7-47.0); Hemoglobin 11.7 GM/DL (12.0-16.0); Immature Granulocytes % 0.5 %; Immature Granulocytes Absolute 0.04 #; Lymphocytes % 11.7 % (21.3-54.2); Mean Corpuscular HGB Conc 35.9 GM/DL (32-36); Mean Corpuscular Hemoglobin 31 PG (27-34); Mean Corpuscular Volume 86.2 FL (87-102); Mean Platelet Volume 11.6 FL (9.6-12.0); Monocytes # 1.1 10*3/uL (0.11-0.8); Monocytes % 12.4 % (1.7-12.7); Neutrophils % 68.1 % (38.7-73.9); Platelet Count 371 T/CUMM (130-400); Red Blood Count 3.78 MC/CUMM (3.8-5.5); Red Cell Distribution Width 16.7 % (9.3-17.3); White Blood Count 8.8 T/CUMM (4-12)
[2017-03-06 09:22] LABS: Troponin I Only 0.031 NG/ML (0.00-0.045)
[2017-03-06 09:26] LABS: Alanine Aminotransferase 13 U/L (13-56); Albumin 2.8 G/DL (3.4-5.0); Alkaline Phosphatase 61 U/L (45-117); Aspartate Amino Transferase 16 U/L (0-37); Bilirubin,Total < 0.39 MG/DL (0.2-1.0); Blood Urea Nitrogen 53 MG/DL (7-18); Glucose 102 MG/DL (74-106); Potassium 4.8 MMOL/L (3.5-5.1); Sodium 136 MMOL/L (136-145); Total Protein 7.3 G/DL (6.4-8.3)
[2017-03-06] MEDS: ENOXAPARIN 30 MG/0.3 ML SYRINGE SUBCUT SCH (09:29)
[2017-03-06] MEDS: MULTIVITAMIN (BEROCCA) TABLET PO SCH (09:34)
[2017-03-06] MEDS: CALCIUM ACETATE 667 MG CAPSULE PO SCH ×4 (09:34→21:03)
[2017-03-06] MEDS: predniSONE 5 MG TABLET PO SCH (09:35)
[2017-03-06] MEDS: FERROUS SULFATE 325 MG TABLET PO SCH (09:35)
[2017-03-06] MEDS: HYDROXYCHLOROQUINE 200 MG TABLET PO SCH (09:35)
[2017-03-06] MEDS: ASPIRIN CHEW 81 MG TABLET PO SCH (09:35)
[2017-03-06] MEDS: SEVELAMER CARBONATE 800 MG TABLET PO SCH ×4 (09:35→21:04)
[2017-03-06] MEDS: METOPROLOL SUCCINATE XL 25 MG TABLET PO SCH ×3 (10:18→21:01)
--- NOTE | 2017-03-06 12:13 | Nephrology Progress Note ---
Nephrology - PN: Subj Interval history: Ms. Chu is seen in follow-up of her end-stage renal disease. Peritoneal dialysis going well. Her creatinine is down to 19 from 25. Baseline creatinines have been running low 20s to mid 25's at the outpatient clinic. She was short of breath having anterior chest pain last night. Pain is now relieved. Echocardiogram is being done. Chest x-ray today does not show any gross volume overload and pulmonary infiltrates are really unchanged. She wanted to make sure that she had IV narcotics available should she have more chest discomfort and we have ordered low-dose morphine as needed we will see what her echocardiogram looks like and consider CT angiogram of her chest to exclude pulmonary emboli if there is evidence of pulmonary hypertension or right ventricular overload. Exam (PN)-Nephrology - Vital Signs Vital signs: Period Temp Pulse Resp BP Sys/Gordon Pulse Ox Last 24 Hr 96.6 F-98.1 F 88-123 16-20 83-115/51-68 93-100 - Lab 03/06/17 07:13 03/06/17 07:13 Most recent lab results Calcium 9.0 MG/DL (8.5-10.1) D 03/06/17 07:13 Assessment and Plan (1) End stage renal disease Status: Chronic Assessment and plan: On peritoneal dialysis. We will continue that Current Visit: Yes (2) Pulmonary infiltrates Status: Acute Current Visit: Yes
--- NOTE | 2017-03-06 12:27 | ECHO Report ---
Willie Jacome Exam Date: 03/06/2017 09:43 Referring Physician: Technologist: Age: 36 Ht (in): Wt (lb): Gender: F Exam Location: [facility] Echo Indications: BP: / HR: Rhythm: Sinus Technical Quality: Very Limited IMPRESSIONS Overall ejection fraction is 30% with equivocal diastolic parameters. Regional wall motion analysis as described below At least mild mitral regurgitation (limited study) was normal left atrial size Mild tricuspid regurgitation with right ventricular systolic pressure estimated at 20 mmHg plus right atrial pressure Technically limited study MEASUREMENTS (Male / Female) Normal Values 2D ECHO LV Diastolic Diameter PLAX 4.9 cm 4.2 - 5.9 / 3.9 - 5.3 cm LV Systolic Diameter PLAX 3.7 cm LV Fractional Shortening PLAX 24.7 % IVS Diastolic Thickness 0.6 cm 0.6 - 1.0 / 0.6 - 0.9 cm LVPW Diastolic Thickness 1.0 cm 0.6 - 1.0 / 0.6 - 0.9 cm RV Internal Dim ED PLAX 3.6 cm Aortic Root Diameter 3.1 cm LA Systolic Diameter LX 4.0 cm 3.0 - 4.0 / 2.7 - 3.8 cm DOPPLER TR Peak Velocity 263.0 cm/s TR Peak Gradient 27.7 mmHg FINDINGS Left Ventricle The overall ejection fraction is approximately 30%. There is very poor endocardial resolution however there appears to be distal anterior and distal apical and inferior apical dyskinesis or akinesis. There is some images where the lateral wall also appears to be hypokinetic. The mid and basal segment of the inferior posterior ventricular myocardium is hyperdynamic. Diastolic parameters are equivocal Right Ventricle This appears to be normal Right Atrium This is normal Left Atrium Left atrium is at the upper limits of normal Mitral Valve Mitral valve is normal there is only mild mitral regurgitation demonstrated in this study Aortic Valve Aortic valve is tricuspid there is no gradient across the valve and aortic insufficiency Tricuspid Valve There is mild tricuspid regurgitation peak velocity 0.63 m/s corresponding to the right ventricular systolic pressure 20 mmHg plus right atrial pressure Pulmonic Valve Pulmonic valve is not well visualized and appears to be normal Pericardium Pericardium is unremarkable Aorta There is limited visualization of the descending thoracic aorta Melanie Telles (Electronically Signed) Final Date: 06 March 2017 12:26
[2017-03-06] MEDS: MORPHINE 2 MG/1 ML SYRINGE IV PRN ×2 (12:34→21:08)
--- NOTE | 2017-03-06 13:27 | XRay Report ---
XR chest 1V portable Indication: Bilateral pulmonary opacities, follow Comparison: Chest x-ray March 03, 2017 Technique: Single frontal view of the chest. Findings: Scattered bilateral pulmonary opacities are again suggestive of infectious/inflammatory process which appear minimally improved from prior examination. Recommend continued follow-up to document resolution. The cardiomediastinal silhouette is stable in configuration with some shift of the right. Continued elevation of left hemidiaphragm. Visualized osseous and surrounding soft tissue structures appear grossly unchanged. IMPRESSION: As above. PROCEDURE INTERPRETED AT [facility] DEPARTMENT OF RADIOLOGY Final Report Signed by: Dr Donnie Mejia
--- NOTE | 2017-03-06 13:46 | Cardiology Progress Note ---
Assessment and Plan - Time spent with patient Time spent with patient: Greater than 30 minutes (Chart review film reviewed examination history and physical. Orders.) (1) Non-cardiac chest pain Status: Acute Assessment and plan: No further cardiovascular workup and evaluation recommend continue medications for rate control. Patient has a diagnosis of "lupus" which may be playing a role. Current Visit: Yes (2) Nonischemic cardiomyopathy Status: Chronic Assessment and plan: Patient has had a EF that has been up and down. It appears to be enlarged fairly depressed at this time. Current Visit: Yes (3) Lupus (systemic lupus erythematosus) Status: Chronic Current Visit: Yes (4) SVT (supraventricular tachycardia) Status: Resolved Assessment and plan: [place] to be playing a role in her previous cardiomyopathy her EF is not significantly improved but is better than previous. Hopefully to continue rate control and PFO. Current Visit: No Cardiology - PN: Subj Interval history: Ms. Campbell is a very pleasant 36-year-old female followed by Dr. Walter Valencia in outpatient setting. She is here with shortness of breath and chest discomfort she has been having green productive sputum and chest pain whenever she takes a deep breath or coughs. She had left heart catheterization in the spring of this year that shows normal epicardial coronary arteries. She had a low ejection fraction was felt to be arrhythmia induced with tachycardia. She recently had a transthoracic echo that I reviewed it is a very limited study but her ejection fraction appears to be approximately 30% and she has regional wall motion abnormality. The patient has noncardiac chest pains had productive sputum and has an abnormal lung exam suggesting pain from her infectious process. She has had green productive sputum and is getting better. She has an abnormal chest x-ray which is being evaluated by the admitting team. Her white count is normal. Exam (Progress Note) - Constitutional Vitals: Period Temp Pulse Resp BP Sys/Gordon Pulse Ox Last 24 Hr 96.6 F-98.1 F 88-123 16-20 83-115/52-68 93-100 General appearance: over weight - Head Head exam: Present: normal inspection - Eye Eye exam: Present: EOMI Pupils: Present: LAURYN - Neck Neck exam: Present: normal inspection - Respiratory Respiratory exam: Present: other (She has rhonchi on the right base on my exam. She has some mild expiratory wheezes and prolonged terminal phase) - Cardiovascular Cardiovascular exam: Present: regular rate and rhythm (Right is about 100) - GI/Abdominal GI/Abdominal exam: Present: normal bowel sounds. Absent: tenderness, rebound - Extremities Exam Extremities exam: Present: normal inspection - Back Exam Back exam: Present: normal inspection - Neurological Exam Neurological exam: Present: alert, oriented X3 - Psychiatric Psychiatric exam: Present: normal affect, normal mood - Skin Skin exam: Present: normal color, warm, dry Result/EKG - Labs CBC & BMP: 03/06/17 07:13 03/06/17 07:13 Labs: Laboratory Results - last 24 hr 03/06/17 03/06/17 03/06/17 02:48 07:13 07:13 WBC 8.8 D RBC 3.78 L Hgb 11.7 L Hct 32.6 L MCV 86.2 L MCH 31 MCHC 35.9 RDW 16.7 Plt Count 371 D MPV 11.6 Neut % (Auto) 68.1 Lymph % (Auto) 11.7 L Daniels % (Auto) 12.4 Eos % (Auto) 6.7 Baso % (Auto) 0.6 Neut # (Auto) 6.0 Lymph # (Auto) 1.0 L Daniels # (Auto) 1.1 H Eos # (Auto) 0.6 Baso # (Auto) 0.1 Immature Gran % 0.5 Nucleated RBC % 0.0 Immature Gran # 0.04 Nucleated RBCs # 0.00 Immature Plt Fraction 0.0 Sodium 136 Potassium 4.8 Chloride 96 L Carbon Dioxide 26 Anion Gap 18.8 H BUN 53 H Creatinine 19.80 H GFR Calculation 2 BUN/Creatinine Ratio 2.00 L Glucose 102 Calculated Osmolality 285.0 Lactic Acid Calcium 9.0 D Total Bilirubin < 0.39 AST 16 ALT 13 Alkaline Phosphatase 61 Total Creatine Kinase Troponin I 0.031 Total Protein 7.3 Albumin 2.8 L Globulin 4.5 H Albumin/Globulin Ratio 0.6 L 03/06/17 03/06/17 07:13 07:19 WBC RBC Hgb Hct MCV MCH MCHC RDW Plt Count MPV Neut % (Auto) Lymph % (Auto) Daniels % (Auto) Eos % (Auto) Baso % (Auto) Neut # (Auto) Lymph # (Auto) Daniels # (Auto) Eos # (Auto) Baso # (Auto) Immature Gran % Nucleated RBC % Immature Gran # Nucleated RBCs # Immature Plt Fraction Sodium Potassium Chloride Carbon Dioxide Anion Gap BUN Creatinine GFR Calculation BUN/Creatinine Ratio Glucose Calculated Osmolality Lactic Acid 2.7 H Calcium Total Bilirubin AST ALT Alkaline Phosphatase Total Creatine Kinase 156 D Troponin I 0.031 Total Protein Albumin Globulin Albumin/Globulin Ratio
[2017-03-06] MEDS: CALCITRIOL 0.5 MCG CAPSULE PO SCH (21:00)
[2017-03-07] MEDS: ALBUTEROL/IPRATROPIUM 3 ML NEB RESP TX SCH ×4 (00:03→11:34)
[2017-03-07] MEDS: ONDANSETRON 4 MG/2 ML VIAL IV PRN (05:41)
[2017-03-07] MEDS: MORPHINE 2 MG/1 ML SYRINGE IV PRN (05:43)
[2017-03-07] MEDS: LEVOTHYROXINE 200 MCG TABLET PO SCH (06:53)
[2017-03-07] MEDS ORDERED: LEVOFLOXACIN 250 MG TABLET PO SCH (08:00)
--- NOTE | 2017-03-07 09:31 | Pulmonology Progress Note ---
Pulmonary - PN: Subj Interval history: This 36-year-old lady came in with patchy infiltrates bilaterally. Some of them have been there previously. The left-sided infiltrate is larger. Probably has acute pneumonia. Recommend treating her for the pneumonia. Get follow-up x-ray tomorrow. If she is doing better she could be discharged and I would see her back in 4-6 weeks with a chest x-ray with possible CT to follow that. 03/06/2017 patient is feeling worse today. Complains of chest pressure. Troponins were negative. EKG shows nonspecific ST-T changes. Repeat chest x- ray is pending. 03/07/2017 chest x-ray shows improvement in the left upper lobe infiltrate however it is not resolved. It would be okay to discharge her on oral Levaquin 250 mg every other day for about 5 more days. I have set her up to see me back in the office in about 6 weeks. We will get a follow-up chest x-ray then. If it is not back to the baseline we will consider doing a CT and/or PET scan at that time. Exam (Progress Note) - Constitutional Vitals: Period Temp Pulse Resp BP Sys/Gordon Pulse Ox Last 24 Hr 96.6 F-97.7 F 88-116 16-22 89-98/47-64 93-100 Exam: Patient is alert and oriented. Vital signs normal. Pupils react to light. Throat is clear. Neck supple no bruits. Chest sounds clear. Heart normal rate rhythm no murmurs. Abdomen soft no masses. Extremities no clubbing cyanosis or edema. Calves nontender. Results - Labs CBC & BMP: 03/06/17 07:13 03/06/17 07:13 Lab Results: I have reviewed the past 24 hour labs - Diagnostic Findings Procedure: Chest x-ray: image reviewed by me (Left upper lobe infiltrate not as dense.) Assessment and Plan (1) End stage renal disease Status: Chronic Assessment and plan: Patient getting peritoneal dialysis. No signs of any infection. 03/05/2017 continuing peritoneal dialysis. Creatinine remains 25. 03/06/2017 continuing with peritoneal dialysis, creatinine related to 25. Defer to nephrology 03/07/2017 continuing peritoneal dialysis. Current Visit: Yes (2) Cardiomyopathy Status: Chronic Assessment and plan: History of congestive heart failure but does not appear to be in failure at this time. 03/06/2017 chest x-ray pending. I do not hear rales. 03/07/2017 chest x-ray improved. Current Visit: No (3) Lupus (systemic lupus erythematosus) Status: Chronic Assessment and plan: Apparently the underlying cause for her renal failure. Current Visit: Yes (4) Pulmonary infiltrates Status: Acute Assessment and plan: She has patchy bilateral pulmonary infiltrates that are fairly dense suggesting that there may be small calcifications but I cannot say that for sure. One in the left upper lobe does appear to be more prominent. Based on her history of cough and chills I think she has a bronchopneumonia. Would treat her as such. Probably will need a CT scan in a few days. I would favor old granulomatous disease for most of what we are seeing. She also has a chronically elevated left diaphragm. 03/05/2017 continuing treatment for probable bronchopneumonia in the left upper lobe. Follow-up x-ray tomorrow. Decide about discharge after that and have her come back to follow-up in a month to 6 weeks with chest x-ray and possible CT is to follow. 03/06/17 chest x-ray is pending. 03/07/2017 right lung infiltrates are old. The left one appears to be new. Being treated for bronchopneumonia empirically. Current Visit: Yes
[2017-03-07] MEDS: SEVELAMER CARBONATE 800 MG TABLET PO SCH ×2 (10:24→12:13)
[2017-03-07] MEDS: MULTIVITAMIN (BEROCCA) TABLET PO SCH (10:24)
[2017-03-07] MEDS: predniSONE 5 MG TABLET PO SCH (10:24)
[2017-03-07] MEDS: METOPROLOL SUCCINATE XL 25 MG TABLET PO SCH (10:24)
[2017-03-07] MEDS: CALCIUM ACETATE 667 MG CAPSULE PO SCH ×2 (10:24→12:13)
[2017-03-07] MEDS: HYDROXYCHLOROQUINE 200 MG TABLET PO SCH (10:25)
[2017-03-07] MEDS: ENOXAPARIN 30 MG/0.3 ML SYRINGE SUBCUT SCH (10:25)
[2017-03-07] MEDS: FERROUS SULFATE 325 MG TABLET PO SCH (10:25)
[2017-03-07] MEDS: ASPIRIN CHEW 81 MG TABLET PO SCH (10:25)
--- NOTE | 2017-03-07 10:41 | Discharge Summary ---
Hospital Course - Hospital Course Hospital Course: Ms. Jacome is a 36 year old female who has end-stage renal disease on peritoneal dialysis. History of lupus and has had congestive heart failure in the past. She comes in now with a few days of chills and a cough. She is a little more short of breath than usual. She has not had any angina but she has had some body aches. Chest x-ray show some patchy infiltrates in both upper lobes. These appear to have been there on x-rays earlier this year the one on the left side may be a little bit more apparent now. There were small areas there on the CT last year. Patient was seen in consultation by Dr. Lugo of pulmonary. She was diagnosed with pneumonia for which she was treated with intravenous antibiotics including levofloxacin. She improved rapidly during her hospitalization.She was seen in consultation by Dr. Kolb of nephrology for management of her end-stage renal disease. She continued herself peritoneal dialysis during her hospitalization. She was seen in consultation by Dr. Telles of cardiology for assistance in management of her nonischemic cardiomyopathy. Patient did not demonstrate evidence of congestive heart failure. She did well in the hospital. At the time of her discharge she was comfortable with no significant complaints. Diagnosis - Discharge Diagnosis (1) Pneumonia Status: Acute (2) Cardiomyopathy Status: Chronic (3) Lupus (systemic lupus erythematosus) Status: Chronic (4) Nonischemic cardiomyopathy Status: Chronic Discharge Plan - Discharge Data Disposition: Disch To Home/Self Care Condition at Discharge: Stable Discharge Diet: advance to your usual diet Activity: resume usual activities as tolerated - Discharge Medications New Levofloxacin Tab [Levaquin Tab] 250 mg PO Q48H #5 tablet Continue Docusate Sodium 100 mg PO DAILY Aspirin [Children's Aspirin] 81 mg PO DAILY Sevelamer Carbonate [Renvela] 800 mg PO TID predniSONE [Alesha] 5 mg PO DAILY Hydroxychloroquine [Plaquenil] 200 mg PO DAILY Ferrous Sulfate [Ferrous Sulfate Cap] 325 mg PO DAILY Calcium Acetate 667 mg PO TID Methoxy Peg-Epoetin Beta [Mircera] 1 vial IM DIRECTED Levothyroxine Tab [Synthroid Tab] 200 mcg PO DAILY@0700 Metoprolol Succinate Xl [Toprol Xl] 25 mg PO BID #60 tablet HYDROcodone/ACETAMIN 7.5-325 [Harviell 7.5-325] 1 tablet PO Q6H PRN #10 PRN Reason: Pain Multivitamin (Berocca) [Berocca] 1 tablet PO DAILY Calcitriol [Rocaltrol] 0.5 mcg PO BEDTIME - Follow Up or Referral - Forms/Instructions Exam - Constitutional Vitals: Period Temp Pulse Resp BP Sys/Gordon Pulse Ox Last 24 Hr 96.6 F-97.7 F 88-116 16-22 89-98/47-64 93-100 Discharge Results Procedures and tests throughout hospitalization: Pending Orders 03/03/17 19:00 Blood Culture Stat 03/06/17 09:05 Blood Culture Stat Labs on day of discharge: Labs from last 24 hours 03/06/17 13:30 Lactic Acid 1.9 Preliminary micro results at discharge 03/03/17 19:00 Blood Culture - Preliminary Blood No growth at 3 days 03/03/17 19:00 Blood Culture - Preliminary Blood No growth at 3 days DS: Provider Date of admission: 03/03/17 21:10 Primary care physician: . No PCP Attending physician on admission: Joce Flores MD Consults: 03/03/17 21:54 Consult to Physician [CONS] Routine Comment: CKD; peritoneal dialysis Consulting Provider: Chandler Kolb Person Notified: MD wheeler Date Notified: 03/04/17 03/03/17 23:49 Consult to Physician [CONS] Routine Comment: abnormal chest xray Consulting Provider: Silver Lugo Person Notified: MD wheeler Date Notified: 03/04/17 03/06/17 08:52 Consult to Physician [CONS] Routine Comment: On-call physician/chest pain Consulting Provider: Gideon Valencia Consult to Specialist Group: Cardiology When should Consulting Provider be notified: Jamison Person Notified: Santana Date Notified: 03/06/17 Time Notified: 10:50 Discharging clinician: Thien Jacob
--- NOTE | 2017-03-07 11:49 | Cardiology Progress Note ---
Pham Bhatt April RN, am scribing for, and in the presence of, Melanie Telles DO 11 :49. Assessment and Plan (1) Non-cardiac chest pain Status: Chronic Current Visit: Yes (2) Lupus (systemic lupus erythematosus) Status: Chronic Current Visit: Yes (3) Nonischemic cardiomyopathy Status: Chronic Current Visit: Yes (4) SVT (supraventricular tachycardia) Status: Resolved Current Visit: No Cardiology - PN: Subj Interval history: Mental Health Program Specialist: Dr. Valencia Summary: Ms. Jacome is a 36-year-old female with a history of lupus, CHF, chronic kidney disease with home peritoneal dialysis, and hypothyroidism. She presented emergency department on March 03 with complaints of worsening shortness of breath for 2 days and cough with sputum production. She also had some complaints of chest tightness. EKG on admission showed sinus tach with heart rate of 111. Troponins have been negative. Echocardiogram with ejection fraction of 30%. Chest x-ray was suggestive of infectious/inflammatory process. She has been on IV antibiotics, she is currently on Levaquin p.o. Cardiology was asked to see her on March 06 because of chest pain. March 07, 2017: Upon interview, her chest pain is only when she takes a deep breath or coughs. She denies any chest pain at other times. She is using oxygen via nasal cannula intermittently. She says she continues to get short of breath when she gets up and moves around. She had an episode of sinus tachycardia with rates in the 150s last night, this morning her heart rate is 101. She denies any palpitations or other symptoms with this. I saw and examined with Ms. Chu she is overall doing better. She still has cough and chest pain when she coughs but no anginal type chest pain this is clearly noncardiac or musculoskeletal or pleuritic in nature Exam (Progress Note) - Constitutional Vitals: Period Temp Pulse Resp BP Sys/Gordon Pulse Ox Last 24 Hr 96.6 F-97.7 F 88-116 16-22 89-98/47-64 93-100 General appearance: no acute distress, over weight - Head Head exam: Absent: abrasion, hematoma - Eye Eye exam: Present: EOMI Pupils: Present: LAURYN - Neck Neck exam: Present: normal inspection. Absent: tenderness - Respiratory Respiratory exam: Present: rhonchi (right base), other (Oxygen use intermittently - cough with deep inspiration.). Absent: accessory muscle use, chest wall tenderness - Cardiovascular Cardiovascular exam: Present: regular rate and rhythm, tachycardia (during nebulizer.) - GI/Abdominal GI/Abdominal exam: Present: normal bowel sounds, soft. Absent: distended, tenderness - Extremities Exam Extremities exam: Absent: calf tenderness, edema - Neurological Exam Neurological exam: Present: alert, oriented X3 - Psychiatric Psychiatric exam: Present: normal affect, normal mood - Skin Skin exam: Present: normal color, warm, dry Result/EKG - Labs CBC & BMP: 03/06/17 07:13 03/06/17 07:13 Lab Results: I have reviewed the past 24 hour labs Labs: Laboratory Results - last 24 hr 03/06/17 13:30 Lactic Acid 1.9 - Diagnostic Findings Procedure: Chest x-ray: report reviewed by me - EKG EKG results: interpreted by me EKG shows: tachycardia, sinus rhythm Specialty Discharge - Follow Up or Referrals Follow up with: Silver Lugo MD [Physician] - 04/17/17 2:00 pm (You will have a CXR first before you see Dr Lugo.) I, Melanie Telles, , personally performed the services described in this documentation, ascribed by Perlita Nath RN in my presence, and it is both accurate and complete 149 .
[2017-03-07 12:57] VITALS: BP 91/55
== END 2017-03-07 13:19 | disposition home or self-care (01) | DRG 193 ==
LOC: N.ED 18:42 → SUATTDRO 21:10 → N.EDINP 21:10 → N.5E 22:48
PROVIDERS: ADMIT Internal Medicine

== ENCOUNTER 2018-07-15 22:27 | Inpatient (IN) ==
[2018-07-15] MEDS ORDERED: ONDANSETRON 4 MG/2 ML VIAL IV STA (23:40)
[2018-07-15] MEDS ORDERED: SODIUM CHLORIDE 0.9% 1,000 ML IV STA (23:40)
[2018-07-15] MEDS ORDERED: MORPHINE 4 MG/1 ML VIAL IV STA (23:40)
[2018-07-16 00:41] LABS: Basophils % 0.1 % (0.0-0.8); Eosinophils # 0.1 10*3/uL (0.0-0.87); Eosinophils % 0.9 % (0.00-10.9); Hematocrit 24.1 VOL% (35.7-47.0); Hemoglobin 8.6 GM/DL (12.0-16.0); Immature Granulocytes % 1.9 %; Immature Granulocytes Absolute 0.29 #; Lymphocytes # 0.3 10*3/uL (1.4-4.0); Lymphocytes % 2.2 % (21.3-54.2); Mean Corpuscular HGB Conc 35.7 GM/DL (32-36); Mean Corpuscular Hemoglobin 31 PG (27-34); Mean Platelet Volume 10.3 FL (9.6-12.0); Monocytes # 1.3 10*3/uL (0.11-0.8); Monocytes % 8.1 % (1.7-12.7); Neutrophils # 13.5 10*3/uL (1.4-7.4); Neutrophils % 86.8 % (38.7-73.9); Platelet Count 411 T/CUMM (130-400); Red Blood Count 2.77 MC/CUMM (3.8-5.5); Red Cell Distribution Width 18.1 % (9.3-17.3); White Blood Count 15.5 T/CUMM (4-12)
[2018-07-16 01:09] LABS: Eosinophils 2 % (0-10); Lymphocytes 1 % (20-55); Myelocytes 1 %; Segmented Neutrophils 87 % (50-85); Total Cells Counted 100
[2018-07-16 01:11] LABS: Giant Platelets Few; Hypochromasia 1+; Platelet Estimate Normal
[2018-07-16 01:12] LABS: Microcytosis 1+; Target Cells 1+
[2018-07-16 01:55] LABS: Albumin 1.9 G/DL (3.4-5.0); Bilirubin,Total 0.6 MG/DL (0.2-1.0); Calcium 6.7 MG/DL (8.5-10.1); Osmolality,Calculated 290.7 MOS/KG (273-304); Potassium 5.3 MMOL/L (3.5-5.1); Total Protein 8.2 G/DL (6.4-8.3)
[2018-07-16] MEDS ORDERED: CIPROFLOXACIN INJ 200 MG in PREMIX 1 EACH IV STA (04:17)
[2018-07-16] MEDS ORDERED: MORPHINE 4 MG/1 ML VIAL IV STA (04:42)
[2018-07-16] MEDS: ONDANSETRON 4 MG/2 ML VIAL IV PRN ×4 (04:57→20:59)
[2018-07-16] MEDS: MORPHINE 4 MG/1 ML VIAL IV PRN ×3 (09:48→20:59)
[2018-07-16] MEDS: PANTOPRAZOLE 40 MG TABLET PO SCH (10:43)
[2018-07-16] MEDS: VANCOMYCIN 1,000 MG VIAL INTRAPERIT SCH (12:10)
[2018-07-16] MEDS: CALCIUM ACETATE 667 MG CAPSULE PO SCH (16:59)
[2018-07-16] MEDS ORDERED: METOPROLOL TARTRATE 25 MG TABLET PO ONE (18:08)
[2018-07-16] MEDS: CIPROFLOXACIN INJ 200 MG in PREMIX 1 EACH IV SCH (23:44)
[2018-07-17] MEDS: LEVOTHYROXINE 200 MCG TABLET PO SCH (06:49)
[2018-07-17] MEDS: MORPHINE 4 MG/1 ML VIAL IV PRN ×2 (07:01→20:05)
[2018-07-17] MEDS: ONDANSETRON 4 MG/2 ML VIAL IV PRN ×2 (07:01→19:40)
[2018-07-17 07:21] LABS: Basophils % 0.2 % (0.0-0.8); Eosinophils # 0.5 10*3/uL (0.0-0.87); Eosinophils % 3.9 % (0.00-10.9); Hematocrit 23.7 VOL% (35.7-47.0); Immature Granulocytes Absolute 0.11 #; Lymphocytes # 0.8 10*3/uL (1.4-4.0); Lymphocytes % 6.7 % (21.3-54.2); Mean Corpuscular HGB Conc 33.8 GM/DL (32-36); Mean Corpuscular Hemoglobin 30 PG (27-34); Mean Corpuscular Volume 89.4 FL (87-102); Mean Platelet Volume 10.2 FL (9.6-12.0); Monocytes # 1.1 10*3/uL (0.11-0.8); Monocytes % 9.5 % (1.7-12.7); Neutrophils % 78.7 % (38.7-73.9); Platelet Count 596 T/CUMM (130-400); Red Blood Count 2.65 MC/CUMM (3.8-5.5); Red Cell Distribution Width 18.5 % (9.3-17.3); White Blood Count 11.4 T/CUMM (4-12)
[2018-07-17] MEDS ORDERED: METOPROLOL TARTRATE 5 MG/5 ML VIAL IV ONE ×3 (07:30→08:20)
[2018-07-17 07:58] LABS: Albumin 1.6 G/DL (3.4-5.0); Bilirubin,Total 1.3 MG/DL (0.2-1.0); Osmolality,Calculated 287.7 MOS/KG (273-304); Potassium 4.4 MMOL/L (3.5-5.1); Total Protein 7.1 G/DL (6.4-8.3)
[2018-07-17] MEDS ORDERED: AMIODARONE INJ 150 MG in DEXTROSE 5% 100 ML IV ONE (08:10)
[2018-07-17] MEDS ORDERED: AMIODARONE INJ 450 MG in DEXTROSE 5% 241 ML IV SCH (08:30)
[2018-07-17] MEDS ORDERED: ADENOSINE 6 MG/2 ML VIAL ONE (08:36)
[2018-07-17] MEDS ORDERED: ADENOSINE 6 MG/2 ML VIAL IV ONE ×2 (08:45→08:47)
[2018-07-17] MEDS ORDERED: CALCITRIOL 0.25 MCG CAPSULE PO SCH (09:00)
[2018-07-17] MEDS ORDERED: SODIUM CHLORIDE 0.45% 1,000 ML IV SCH (09:30)
[2018-07-17] MEDS: CALCIUM ACETATE 667 MG CAPSULE PO SCH ×3 (09:51→18:08)
[2018-07-17] MEDS: FERROUS SULFATE 325 MG TABLET PO SCH (09:56)
[2018-07-17] MEDS: PANTOPRAZOLE 40 MG TABLET PO SCH (09:56)
[2018-07-17] MEDS: CALCITRIOL 0.25 MCG CAPSULE PO SCH (10:40)
[2018-07-17] MEDS: VANCOMYCIN 1,000 MG VIAL INTRAPERIT SCH (11:38)
[2018-07-17] MEDS: METOPROLOL TARTRATE 5 MG/5 ML VIAL IV SCH ×2 (12:33→18:18)
[2018-07-17] MEDS: CIPROFLOXACIN INJ 200 MG in PREMIX 1 EACH IV SCH (18:17)
[2018-07-17] MEDS: METOPROLOL SUCCINATE XL 50 MG TABLET PO SCH (21:45)
[2018-07-18] MEDS: METOPROLOL TARTRATE 5 MG/5 ML VIAL IV SCH ×2 (02:16→07:31)
[2018-07-18] MEDS: ONDANSETRON 4 MG/2 ML VIAL IV PRN ×3 (02:28→18:34)
[2018-07-18] MEDS: MORPHINE 4 MG/1 ML VIAL IV PRN (03:30)
[2018-07-18 05:36] LABS: Calcium 7.2 MG/DL (8.5-10.1); Osmolality,Calculated 280.9 MOS/KG (273-304); Potassium 4.5 MMOL/L (3.5-5.1)
[2018-07-18 05:37] LABS: Basophils % 0.2 % (0.0-0.8); Eosinophils # 0.5 10*3/uL (0.0-0.87); Eosinophils % 4.6 % (0.00-10.9); Hematocrit 20.3 VOL% (35.7-47.0); Immature Granulocytes % 1.2 %; Immature Granulocytes Absolute 0.14 #; Lymphocytes # 0.4 10*3/uL (1.4-4.0); Lymphocytes % 3.3 % (21.3-54.2); Mean Corpuscular Hemoglobin 31 PG (27-34); Mean Corpuscular Volume 86.4 FL (87-102); Mean Platelet Volume 10.2 FL (9.6-12.0); Monocytes # 1.1 10*3/uL (0.11-0.8); Monocytes % 9.8 % (1.7-12.7); Neutrophils # 9.2 10*3/uL (1.4-7.4); Neutrophils % 80.9 % (38.7-73.9); Platelet Count 528 T/CUMM (130-400); Red Blood Count 2.35 MC/CUMM (3.8-5.5); Red Cell Distribution Width 18.2 % (9.3-17.3); White Blood Count 11.4 T/CUMM (4-12)
[2018-07-18 05:39] LABS: Hemoglobin 7.3 GM/DL (12.0-16.0)
[2018-07-18 05:53] LABS: Band Neutrophils 1 % (0-10); Eosinophils 8 % (0-10); Hypochromasia 1+; Lymphocytes 4 % (20-55); Microcytosis Slight; Ovalocytes Slight; Platelet Estimate Adequate; Segmented Neutrophils 79 % (50-85); Target Cells Few; Total Cells Counted 100
[2018-07-18] MEDS: LEVOTHYROXINE 200 MCG TABLET PO SCH (06:32)
[2018-07-18] MEDS: CALCITRIOL 0.25 MCG CAPSULE PO SCH (08:46)
[2018-07-18] MEDS: METOPROLOL SUCCINATE XL 50 MG TABLET PO SCH ×2 (08:47→20:56)
[2018-07-18] MEDS: CALCIUM ACETATE 667 MG CAPSULE PO SCH ×4 (08:47→17:13)
[2018-07-18] MEDS: PANTOPRAZOLE 40 MG TABLET PO SCH (08:47)
[2018-07-18] MEDS: FERROUS SULFATE 325 MG TABLET PO SCH (08:47)
[2018-07-18] MEDS ORDERED: EPOETIN ALFA 10,000 UNIT/1 ML VIAL SUBCUT SCH (09:00)
[2018-07-18] MEDS: VANCOMYCIN 1,000 MG VIAL INTRAPERIT SCH (11:34)
[2018-07-18] MEDS: CIPROFLOXACIN INJ 200 MG in PREMIX 1 EACH IV SCH (11:36)
[2018-07-18] MEDS ORDERED: MAGNESIUM SULF RIDER 4 GM in PREMIX 1 EACH IV ONE (12:57)
[2018-07-19] MEDS: MORPHINE 4 MG/1 ML VIAL IV PRN ×2 (02:01→08:44)
[2018-07-19] MEDS: ONDANSETRON 4 MG/2 ML VIAL IV PRN ×2 (02:02→08:48)
[2018-07-19 05:16] LABS: Basophils % 0.2 % (0.0-0.8); Eosinophils # 0.7 10*3/uL (0.0-0.87); Eosinophils % 5.5 % (0.00-10.9); Immature Granulocytes Absolute 0.13 #; Lymphocytes # 0.8 10*3/uL (1.4-4.0); Mean Corpuscular HGB Conc 34.9 GM/DL (32-36); Mean Corpuscular Hemoglobin 31 PG (27-34); Mean Corpuscular Volume 89.4 FL (87-102); Monocytes # 1.5 10*3/uL (0.11-0.8); Monocytes % 11.6 % (1.7-12.7); Neutrophils # 9.4 10*3/uL (1.4-7.4); Neutrophils % 75.7 % (38.7-73.9); Platelet Count 691 T/CUMM (130-400); Red Blood Count 1.41 MC/CUMM (3.8-5.5); Red Cell Distribution Width 18.3 % (9.3-17.3); White Blood Count 12.5 T/CUMM (4-12)
[2018-07-19 05:23] LABS: Hemoglobin 4.4 GM/DL (12.0-16.0)
[2018-07-19 05:24] LABS: Hematocrit 12.6 VOL% (35.7-47.0)
[2018-07-19 05:26] LABS: Calcium 7.7 MG/DL (8.5-10.1); Osmolality,Calculated 284.5 MOS/KG (273-304); Potassium 4.2 MMOL/L (3.5-5.1)
[2018-07-19] MEDS: CIPROFLOXACIN INJ 200 MG in PREMIX 1 EACH IV SCH (05:42)
[2018-07-19 06:01] LABS: Hematocrit 20.7 VOL% (35.7-47.0); Hemoglobin 7.3 GM/DL (12.0-16.0)
[2018-07-19] MEDS: LEVOTHYROXINE 200 MCG TABLET PO SCH (06:55)
[2018-07-19] MEDS: FERROUS SULFATE 325 MG TABLET PO SCH (08:28)
[2018-07-19] MEDS: PANTOPRAZOLE 40 MG TABLET PO SCH (08:28)
[2018-07-19] MEDS: METOPROLOL SUCCINATE XL 50 MG TABLET PO SCH ×2 (08:28→21:14)
[2018-07-19] MEDS: CALCITRIOL 0.25 MCG CAPSULE PO SCH (08:28)
[2018-07-19] MEDS: CALCIUM ACETATE 667 MG CAPSULE PO SCH ×3 (08:29→17:46)
[2018-07-19] MEDS: CALCITRIOL 0.5 MCG CAPSULE PO SCH (08:30)
[2018-07-19] MEDS ORDERED: HEPARIN 5,000 UNIT/1 ML VIAL ONE (15:58)
[2018-07-19] MEDS ORDERED: LIDOCAINE 1% 20 ML VIAL ONE (15:59)
[2018-07-19] MEDS ORDERED: BUPIVACAINE 0.5% 50 ML VIAL ONE (15:59)
[2018-07-19] MEDS ORDERED: ceFAZolin 1,000 MG VIAL ONE (17:16)
[2018-07-19] MEDS ORDERED: TISSUE ADHESIVE 1 EACH APPLICATOR TOP ONE (17:50)
[2018-07-19] MEDS ORDERED: PROPOFOL 200 MG/20 ML VIAL IV ONE (18:22)
[2018-07-19] MEDS ORDERED: PHENYLEPHRINE 1 MG/10 ML SYRINGE IV ONE (18:22)
[2018-07-19] MEDS ORDERED: EPINEPHrine 1 MG/ML VIAL ONE (18:22)
[2018-07-19] MEDS ORDERED: ONDANSETRON 4 MG/2 ML VIAL ONE (18:22)
[2018-07-19] MEDS ORDERED: DEXAMETHASONE 10 MG/1 ML VIAL ONE (18:22)
[2018-07-19] MEDS ORDERED: SEVOFLURANE 1 UNIT/15 MINUTE INH ONE (18:22)
[2018-07-19] MEDS ORDERED: MIDAZOLAM 2 MG/2 ML VIAL ONE (18:23)
[2018-07-19] MEDS ORDERED: METOPROLOL TARTRATE 5 MG/5 ML VIAL IV PRN (21:25)
[2018-07-20] MEDS: CIPROFLOXACIN INJ 200 MG in PREMIX 1 EACH IV SCH ×2 (02:11→16:58)
[2018-07-20] MEDS: ONDANSETRON 4 MG/2 ML VIAL IV PRN ×3 (02:11→19:34)
[2018-07-20] MEDS: MORPHINE 4 MG/1 ML VIAL IV PRN ×4 (02:11→23:45)
[2018-07-20 05:29] LABS: Basophils % 0.1 % (0.0-0.8); Eosinophils % 0.1 % (0.00-10.9); Hematocrit 20.3 VOL% (35.7-47.0); Hemoglobin 7.1 GM/DL (12.0-16.0); Immature Granulocytes Absolute 0.12 #; Lymphocytes # 0.4 10*3/uL (1.4-4.0); Lymphocytes % 3.1 % (21.3-54.2); Mean Corpuscular Hemoglobin 31 PG (27-34); Mean Corpuscular Volume 87.1 FL (87-102); Mean Platelet Volume 9.7 FL (9.6-12.0); Monocytes # 0.3 10*3/uL (0.11-0.8); Monocytes % 2.1 % (1.7-12.7); Neutrophils # 11.2 10*3/uL (1.4-7.4); Neutrophils % 93.6 % (38.7-73.9); Platelet Count 660 T/CUMM (130-400); Red Blood Count 2.33 MC/CUMM (3.8-5.5); Red Cell Distribution Width 18.1 % (9.3-17.3)
[2018-07-20 05:44] LABS: Calcium 7.7 MG/DL (8.5-10.1); Osmolality,Calculated 279.8 MOS/KG (273-304); Potassium 4.8 MMOL/L (3.5-5.1)
[2018-07-20 05:50] LABS: Albumin 1.4 G/DL (3.4-5.0); Bilirubin,Direct 0.1 MG/DL (0.0-0.20); Bilirubin,Indirect 0.4 MG/DL (0.0-1.0); Bilirubin,Total 0.5 MG/DL (0.2-1.0)
[2018-07-20 06:01] LABS: Band Neutrophils 1 % (0-10); Lymphocytes 3 % (20-55); Platelet Estimate Increased; Segmented Neutrophils 91 % (50-85); Total Cells Counted 100
[2018-07-20 06:02] LABS: Anisocytosis Slight; Macrocytosis Slight; Ovalocytes 1+; Target Cells 2+
[2018-07-20] MEDS ORDERED: EPOETIN ALFA 10,000 UNIT/1 ML VIAL IV PRN (08:28)
[2018-07-20] MEDS ORDERED: MIDODRINE 5 MG TABLET PO PRN (08:44)
[2018-07-20] MEDS: CALCITRIOL 0.5 MCG CAPSULE PO SCH (08:59)
[2018-07-20] MEDS: LEVOTHYROXINE 200 MCG TABLET PO SCH (08:59)
[2018-07-20] MEDS: FERROUS SULFATE 325 MG TABLET PO SCH (09:00)
[2018-07-20] MEDS: PANTOPRAZOLE 40 MG TABLET PO SCH (09:00)
[2018-07-20] MEDS: METOPROLOL SUCCINATE XL 50 MG TABLET PO SCH ×2 (09:00→21:51)
[2018-07-20] MEDS: CALCIUM ACETATE 667 MG CAPSULE PO SCH ×3 (09:00→16:59)
[2018-07-20] MEDS ORDERED: HEPARIN 10,000 UNIT/10 ML VIAL IV PRN (15:16)
[2018-07-20] MEDS: PROMETHAZINE 25 MG TABLET PO PRN (23:45)
[2018-07-21] MEDS: PROMETHAZINE 25 MG TABLET PO PRN (06:10)
[2018-07-21] MEDS: MORPHINE 4 MG/1 ML VIAL IV PRN (06:10)
[2018-07-21] MEDS: LEVOTHYROXINE 200 MCG TABLET PO SCH (06:10)
[2018-07-21] MEDS: PANTOPRAZOLE 40 MG TABLET PO SCH (08:10)
[2018-07-21] MEDS: CALCIUM ACETATE 667 MG CAPSULE PO SCH ×3 (08:10→18:19)
[2018-07-21] MEDS: METOPROLOL SUCCINATE XL 50 MG TABLET PO SCH ×2 (08:10→23:53)
[2018-07-21] MEDS: CALCITRIOL 0.5 MCG CAPSULE PO SCH (08:10)
[2018-07-21] MEDS: CIPROFLOXACIN INJ 200 MG in PREMIX 1 EACH IV SCH (13:04)
[2018-07-21] MEDS: cefTRIAXone 1,000 MG in SYRINGE 1 EACH IV SCH (13:04)
[2018-07-21] MEDS: ALBUMIN 25% 25 GM in PREMIX 1 EACH IV SCH ×2 (15:05→23:50)
[2018-07-21] MEDS: ACETAMINOPHEN 325 MG TABLET PO PRN (18:00)
[2018-07-22] MEDS: PROMETHAZINE 25 MG TABLET PO PRN (03:37)
[2018-07-22] MEDS: MORPHINE 4 MG/1 ML VIAL IV PRN ×3 (03:37→21:03)
[2018-07-22] MEDS: CIPROFLOXACIN INJ 200 MG in PREMIX 1 EACH IV SCH (05:37)
[2018-07-22 06:14] LABS: Basophils % 0.2 % (0.0-0.8); Eosinophils # 0.9 10*3/uL (0.0-0.87); Eosinophils % 5.5 % (0.00-10.9); Immature Granulocytes % 2.3 %; Immature Granulocytes Absolute 0.36 #; Lymphocytes # 0.9 10*3/uL (1.4-4.0); Lymphocytes % 5.5 % (21.3-54.2); Mean Corpuscular HGB Conc 34.1 GM/DL (32-36); Mean Corpuscular Hemoglobin 31 PG (27-34); Mean Corpuscular Volume 89.6 FL (87-102); Mean Platelet Volume 9.4 FL (9.6-12.0); Monocytes # 1.7 10*3/uL (0.11-0.8); Monocytes % 10.7 % (1.7-12.7); NRBC # 0.02 10*3/uL; Neutrophils # 11.9 10*3/uL (1.4-7.4); Neutrophils % 75.8 % (38.7-73.9); Platelet Count 560 T/CUMM (130-400); Red Blood Count 1.93 MC/CUMM (3.8-5.5); Red Cell Distribution Width 18.6 % (9.3-17.3); White Blood Count 15.7 T/CUMM (4-12)
[2018-07-22 06:26] LABS: % Iron Saturation 21.5 % (18-50)
[2018-07-22 06:37] LABS: Hemoglobin 5.9 GM/DL (12.0-16.0)
[2018-07-22 06:38] LABS: Hematocrit 17.3 VOL% (35.7-47.0)
[2018-07-22 06:41] LABS: Albumin 2.1 G/DL (3.4-5.0); Calcium 8.3 MG/DL (8.5-10.1); Osmolality,Calculated 276.2 MOS/KG (273-304); Potassium 4.3 MMOL/L (3.5-5.1)
[2018-07-22] MEDS: ALBUMIN 25% 25 GM in PREMIX 1 EACH IV SCH ×2 (07:02→14:36)
[2018-07-22] MEDS: LEVOTHYROXINE 200 MCG TABLET PO SCH (07:05)
[2018-07-22] MEDS: CALCIUM ACETATE 667 MG CAPSULE PO SCH ×3 (08:24→17:09)
[2018-07-22] MEDS: CALCITRIOL 0.5 MCG CAPSULE PO SCH (08:24)
[2018-07-22] MEDS: PANTOPRAZOLE 40 MG TABLET PO SCH (08:24)
[2018-07-22] MEDS: METOPROLOL SUCCINATE XL 50 MG TABLET PO SCH ×2 (08:25→21:03)
[2018-07-22] MEDS ORDERED: SODIUM CHLORIDE 0.9% 1,000 ML IV PRN (11:56)
[2018-07-22] MEDS: cefTRIAXone 1,000 MG in SYRINGE 1 EACH IV SCH (12:14)
[2018-07-22] MEDS: ONDANSETRON 4 MG/2 ML VIAL IV PRN (18:54)
[2018-07-23] MEDS: ALBUMIN 25% 25 GM in PREMIX 1 EACH IV SCH ×2 (00:57→10:24)
[2018-07-23] MEDS: ACETAMINOPHEN 325 MG TABLET PO PRN (00:58)
[2018-07-23] MEDS: CIPROFLOXACIN INJ 200 MG in PREMIX 1 EACH IV SCH ×2 (03:28→18:11)
[2018-07-23 04:56] LABS: Basophils % 0.1 % (0.0-0.8); Eosinophils # 1.1 10*3/uL (0.0-0.87); Eosinophils % 7.1 % (0.00-10.9); Immature Granulocytes % 4.2 %; Immature Granulocytes Absolute 0.64 #; Lymphocytes % 6.7 % (21.3-54.2); Mean Corpuscular HGB Conc 33.3 GM/DL (32-36); Mean Corpuscular Hemoglobin 30 PG (27-34); Mean Corpuscular Volume 90.2 FL (87-102); Mean Platelet Volume 9.4 FL (9.6-12.0); Monocytes # 1.6 10*3/uL (0.11-0.8); Monocytes % 10.6 % (1.7-12.7); Neutrophils # 10.8 10*3/uL (1.4-7.4); Neutrophils % 71.3 % (38.7-73.9); Platelet Count 528 T/CUMM (130-400); Red Blood Count 1.73 MC/CUMM (3.8-5.5); Red Cell Distribution Width 18.5 % (9.3-17.3); White Blood Count 15.2 T/CUMM (4-12)
[2018-07-23 05:01] LABS: Hematocrit 15.6 VOL% (35.7-47.0); Hemoglobin 5.2 GM/DL (12.0-16.0)
[2018-07-23 05:16] LABS: Albumin 2.6 G/DL (3.4-5.0); Calcium 8.3 MG/DL (8.5-10.1); Osmolality,Calculated 284.8 MOS/KG (273-304); Potassium 4.2 MMOL/L (3.5-5.1)
[2018-07-23 05:22] LABS: Eosinophils 12 % (0-10); Hypochromasia 1+; Lymphocytes 9 % (20-55); Microcytosis 1+; Segmented Neutrophils 74 % (50-85); Target Cells 1+; Total Cells Counted 100
[2018-07-23 05:23] LABS: Anisocytosis 1+
[2018-07-23] MEDS: PROMETHAZINE 25 MG TABLET PO PRN ×2 (05:57→20:25)
[2018-07-23] MEDS: MORPHINE 4 MG/1 ML VIAL IV PRN ×3 (05:58→21:40)
[2018-07-23] MEDS: LEVOTHYROXINE 200 MCG TABLET PO SCH (06:24)
[2018-07-23] MEDS: PANTOPRAZOLE 40 MG TABLET PO SCH (09:51)
[2018-07-23] MEDS: METOPROLOL SUCCINATE XL 50 MG TABLET PO SCH ×2 (09:51→21:05)
[2018-07-23] MEDS ORDERED: EPOETIN ALFA 10,000 UNIT/1 ML VIAL IV PRN (10:07)
[2018-07-23] MEDS: CALCIUM ACETATE 667 MG CAPSULE PO SCH ×3 (10:19→18:11)
[2018-07-23] MEDS: CALCITRIOL 0.5 MCG CAPSULE PO SCH (10:30)
[2018-07-23] MEDS: IRON SUCROSE 200 MG in SODIUM CHLORIDE 0.9% 100 ML IV SCH (11:16)
[2018-07-23 11:38] LABS: Hemoglobin 5.7 GM/DL (12.0-16.0)
[2018-07-23 11:39] LABS: Hematocrit 16.9 VOL% (35.7-47.0)
[2018-07-23] MEDS: cefTRIAXone 1,000 MG in SYRINGE 1 EACH IV SCH (13:50)
[2018-07-23] MEDS: ONDANSETRON 4 MG/2 ML VIAL IV PRN ×2 (14:29→21:58)
[2018-07-23 19:11] LABS: Hemoglobin 5.6 GM/DL (12.0-16.0)
[2018-07-23 19:12] LABS: Hematocrit 16.4 VOL% (35.7-47.0)
[2018-07-24] MEDS: ONDANSETRON 4 MG/2 ML VIAL IV PRN ×2 (05:31→22:41)
[2018-07-24] MEDS: MORPHINE 4 MG/1 ML VIAL IV PRN ×4 (05:31→22:35)
[2018-07-24 05:40] LABS: Basophils % 0.2 % (0.0-0.8); Eosinophils # 1.3 10*3/uL (0.0-0.87); Immature Granulocytes % 4.2 %; Immature Granulocytes Absolute 0.66 #; Lymphocytes # 1.1 10*3/uL (1.4-4.0); Lymphocytes % 6.9 % (21.3-54.2); Mean Corpuscular HGB Conc 32.6 GM/DL (32-36); Mean Corpuscular Hemoglobin 30 PG (27-34); Mean Corpuscular Volume 91.8 FL (87-102); Mean Platelet Volume 9.7 FL (9.6-12.0); Monocytes % 12.6 % (1.7-12.7); NRBC # 0.06 10*3/uL; Neutrophils # 10.7 10*3/uL (1.4-7.4); Neutrophils % 68.1 % (38.7-73.9); Platelet Count 642 T/CUMM (130-400); Red Blood Count 1.94 MC/CUMM (3.8-5.5); Red Cell Distribution Width 18.6 % (9.3-17.3); White Blood Count 15.7 T/CUMM (4-12)
[2018-07-24 05:51] LABS: Albumin 2.4 G/DL (3.4-5.0); Calcium 8.3 MG/DL (8.5-10.1); Osmolality,Calculated 279.4 MOS/KG (273-304); Potassium 4.5 MMOL/L (3.5-5.1)
[2018-07-24 05:54] LABS: Hematocrit 17.8 VOL% (35.7-47.0); Hemoglobin 5.8 GM/DL (12.0-16.0)
[2018-07-24 06:14] LABS: Band Neutrophils 1 % (0-10); Eosinophils 3 % (0-10); Hypochromasia 1+; Lymphocytes 9 % (20-55); Nucleated Red Blood Cells 1 (0-5); Platelet Estimate Adequate; Segmented Neutrophils 77 % (50-85); Target Cells Few; Total Cells Counted 100
[2018-07-24 06:15] LABS: Microcytosis Slight
[2018-07-24] MEDS: MEROPENEM 500 MG in SODIUM CHLORIDE 0.9% 100 ML IV SCH (06:23)
[2018-07-24] MEDS: LEVOTHYROXINE 200 MCG TABLET PO SCH (06:24)
[2018-07-24] MEDS: PANTOPRAZOLE 40 MG TABLET PO SCH (08:06)
[2018-07-24] MEDS: CALCITRIOL 0.5 MCG CAPSULE PO SCH (08:06)
[2018-07-24] MEDS: METOPROLOL SUCCINATE XL 50 MG TABLET PO SCH ×2 (08:06→21:16)
[2018-07-24] MEDS: CALCIUM ACETATE 667 MG CAPSULE PO SCH (08:06)
[2018-07-24] MEDS: IRON SUCROSE 200 MG in SODIUM CHLORIDE 0.9% 100 ML IV SCH (09:54)
[2018-07-24 10:30] LABS: Hematocrit 17.5 VOL% (35.7-47.0); Hemoglobin 5.9 GM/DL (12.0-16.0)
[2018-07-24] MEDS: CIPROFLOXACIN INJ 200 MG in PREMIX 1 EACH IV SCH (10:32)
[2018-07-24] MEDS ORDERED: GENTAMICIN INJ 80 MG in PREMIX 1 EACH IV PRN (12:07)
[2018-07-24] MEDS: SEVELAMER CARBONATE 800 MG TABLET PO SCH ×2 (12:54→17:20)
[2018-07-24] MEDS ORDERED: GENTAMICIN INJ 180 MG in SODIUM CHLORIDE 0.9% 100 ML IV ONE (13:00)
[2018-07-24] MEDS ORDERED: GENTAMICIN IV ONE (13:00)
[2018-07-25] MEDS: MORPHINE 4 MG/1 ML VIAL IV PRN ×4 (04:37→22:00)
[2018-07-25] MEDS: CIPROFLOXACIN INJ 200 MG in PREMIX 1 EACH IV SCH (04:37)
[2018-07-25] MEDS: ONDANSETRON 4 MG/2 ML VIAL IV PRN ×3 (04:38→22:00)
[2018-07-25 05:18] LABS: Basophils # 0.1 10*3/uL (0.0-0.2); Basophils % 0.4 % (0.0-0.8); Eosinophils # 1.6 10*3/uL (0.0-0.87); Hematocrit 18.3 VOL% (35.7-47.0); Immature Granulocytes % 5.2 %; Immature Granulocytes Absolute 0.84 #; Lymphocytes # 1.2 10*3/uL (1.4-4.0); Lymphocytes % 7.4 % (21.3-54.2); Mean Corpuscular HGB Conc 32.2 GM/DL (32-36); Mean Corpuscular Hemoglobin 30 PG (27-34); Mean Corpuscular Volume 92.9 FL (87-102); Mean Platelet Volume 9.6 FL (9.6-12.0); Monocytes # 2.2 10*3/uL (0.11-0.8); Monocytes % 13.8 % (1.7-12.7); NRBC # 0.03 10*3/uL; Neutrophils # 10.2 10*3/uL (1.4-7.4); Neutrophils % 63.2 % (38.7-73.9); Platelet Count 637 T/CUMM (130-400); Red Blood Count 1.97 MC/CUMM (3.8-5.5); Red Cell Distribution Width 18.7 % (9.3-17.3); White Blood Count 16.1 T/CUMM (4-12)
[2018-07-25 05:21] LABS: Hemoglobin 5.9 GM/DL (12.0-16.0)
[2018-07-25 05:44] LABS: Band Neutrophils 2 % (0-10); Eosinophils 7 % (0-10); Hypochromasia 1+; Lymphocytes 7 % (20-55); Myelocytes 1 %; Nucleated Red Blood Cells 1 (0-5); Segmented Neutrophils 73 % (50-85); Total Cells Counted 100
[2018-07-25 05:45] LABS: Microcytosis 1+; Polychromasia Slight; Target Cells 1+
[2018-07-25 05:46] LABS: Anisocytosis 1+
[2018-07-25] MEDS: LEVOTHYROXINE 200 MCG TABLET PO SCH (06:22)
[2018-07-25] MEDS: MEROPENEM 500 MG in SODIUM CHLORIDE 0.9% 100 ML IV SCH (06:22)
[2018-07-25] MEDS: METOPROLOL SUCCINATE XL 50 MG TABLET PO SCH ×2 (08:25→23:00)
[2018-07-25] MEDS: CALCITRIOL 0.25 MCG CAPSULE PO SCH (08:25)
[2018-07-25] MEDS: PANTOPRAZOLE 40 MG TABLET PO SCH (08:25)
[2018-07-25] MEDS: SEVELAMER CARBONATE 800 MG TABLET PO SCH ×3 (08:25→15:02)
[2018-07-25] MEDS: IRON SUCROSE 200 MG in SODIUM CHLORIDE 0.9% 100 ML IV SCH (08:26)
[2018-07-25] MEDS ORDERED: GENTAMICIN INJ 80 MG in PREMIX 1 EACH IV ONE (13:00)
[2018-07-26] MEDS: CIPROFLOXACIN INJ 200 MG in PREMIX 1 EACH IV SCH ×2 (01:29→18:08)
[2018-07-26] MEDS: ONDANSETRON 4 MG/2 ML VIAL IV PRN ×4 (03:20→18:09)
[2018-07-26] MEDS: MORPHINE 4 MG/1 ML VIAL IV PRN ×4 (03:22→18:09)
[2018-07-26 04:47] LABS: Basophils # 0.1 10*3/uL (0.0-0.2); Basophils % 0.3 % (0.0-0.8); Eosinophils # 1.4 10*3/uL (0.0-0.87); Immature Granulocytes % 5.4 %; Immature Granulocytes Absolute 0.95 #; Lymphocytes # 1.3 10*3/uL (1.4-4.0); Lymphocytes % 7.6 % (21.3-54.2); Mean Corpuscular HGB Conc 32.8 GM/DL (32-36); Mean Corpuscular Hemoglobin 31 PG (27-34); Mean Corpuscular Volume 93.3 FL (87-102); Mean Platelet Volume 9.7 FL (9.6-12.0); Monocytes # 2.4 10*3/uL (0.11-0.8); Monocytes % 13.6 % (1.7-12.7); NRBC # 0.17 10*3/uL; Neutrophils # 11.4 10*3/uL (1.4-7.4); Neutrophils % 65.1 % (38.7-73.9); Platelet Count 526 T/CUMM (130-400); Red Blood Count 1.93 MC/CUMM (3.8-5.5); Red Cell Distribution Width 18.8 % (9.3-17.3); White Blood Count 17.5 T/CUMM (4-12)
[2018-07-26 04:57] LABS: Hemoglobin 5.9 GM/DL (12.0-16.0)
[2018-07-26 05:00] LABS: Albumin 2.2 G/DL (3.4-5.0); Osmolality,Calculated 277.4 MOS/KG (273-304)
[2018-07-26 05:26] LABS: Eosinophils 11 % (0-10); Lymphocytes 9 % (20-55); Segmented Neutrophils 72 % (50-85); Total Cells Counted 100
[2018-07-26 05:27] LABS: Platelet Estimate Increased; Target Cells Few
[2018-07-26 05:28] LABS: Polychromasia Few
[2018-07-26] MEDS: MEROPENEM 500 MG in SODIUM CHLORIDE 0.9% 100 ML IV SCH (06:59)
[2018-07-26] MEDS: LEVOTHYROXINE 200 MCG TABLET PO SCH (06:59)
[2018-07-26] MEDS: SEVELAMER CARBONATE 800 MG TABLET PO SCH ×3 (07:52→18:09)
[2018-07-26] MEDS: PANTOPRAZOLE 40 MG TABLET PO SCH (08:11)
[2018-07-26] MEDS: IRON SUCROSE 200 MG in SODIUM CHLORIDE 0.9% 100 ML IV SCH (08:11)
[2018-07-26] MEDS: CALCITRIOL 0.25 MCG CAPSULE PO SCH (08:11)
[2018-07-26] MEDS: METOPROLOL SUCCINATE XL 50 MG TABLET PO SCH ×2 (08:11→21:06)
[2018-07-27 05:13] LABS: Basophils # 0.1 10*3/uL (0.0-0.2); Basophils % 0.3 % (0.0-0.8); Eosinophils # 1.4 10*3/uL (0.0-0.87); Eosinophils % 7.8 % (0.00-10.9); Hematocrit 19.2 VOL% (35.7-47.0); Immature Granulocytes % 5.6 %; Immature Granulocytes Absolute 0.98 #; Lymphocytes # 1.3 10*3/uL (1.4-4.0); Lymphocytes % 7.6 % (21.3-54.2); Mean Corpuscular HGB Conc 31.8 GM/DL (32-36); Mean Corpuscular Hemoglobin 30 PG (27-34); Mean Corpuscular Volume 93.7 FL (87-102); Mean Platelet Volume 10.2 FL (9.6-12.0); Monocytes # 2.3 10*3/uL (0.11-0.8); Monocytes % 13.1 % (1.7-12.7); NRBC # 0.14 10*3/uL; Neutrophils # 11.4 10*3/uL (1.4-7.4); Neutrophils % 65.6 % (38.7-73.9); Platelet Count 514 T/CUMM (130-400); Red Blood Count 2.05 MC/CUMM (3.8-5.5); Red Cell Distribution Width 19.2 % (9.3-17.3); White Blood Count 17.4 T/CUMM (4-12)
[2018-07-27 05:18] LABS: Hemoglobin 6.1 GM/DL (12.0-16.0)
[2018-07-27 05:21] LABS: Calcium 8.2 MG/DL (8.5-10.1); Osmolality,Calculated 272.8 MOS/KG (273-304); Potassium 4.3 MMOL/L (3.5-5.1)
[2018-07-27 06:07] LABS: Band Neutrophils 5 % (0-10); Eosinophils 8 % (0-10); Lymphocytes 8 % (20-55); Metamyelocytes 3 %; Nucleated Red Blood Cells 1 (0-5); Platelet Estimate Increased; Segmented Neutrophils 61 % (50-85); Target Cells 2+; Total Cells Counted 100
[2018-07-27 06:08] LABS: Anisocytosis 1+; Microcytosis 1+; Polychromasia Few
[2018-07-27 06:09] LABS: Ovalocytes 1+
[2018-07-27] MEDS: MEROPENEM 500 MG in SODIUM CHLORIDE 0.9% 100 ML IV SCH (06:11)
[2018-07-27] MEDS: LEVOTHYROXINE 200 MCG TABLET PO SCH (06:37)
[2018-07-27] MEDS: CALCITRIOL 0.25 MCG CAPSULE PO SCH (08:10)
[2018-07-27] MEDS: METOPROLOL SUCCINATE XL 50 MG TABLET PO SCH ×2 (08:10→23:46)
[2018-07-27] MEDS: SEVELAMER CARBONATE 800 MG TABLET PO SCH (08:11)
[2018-07-27] MEDS: PANTOPRAZOLE 40 MG TABLET PO SCH (08:11)
[2018-07-27] MEDS: IRON SUCROSE 200 MG in SODIUM CHLORIDE 0.9% 100 ML IV SCH (12:49)
[2018-07-27] MEDS ORDERED: EPOETIN ALFA 10,000 UNIT/1 ML VIAL IV PRN (15:00)
[2018-07-27] MEDS: MORPHINE 4 MG/1 ML VIAL IV PRN ×3 (15:18→22:15)
[2018-07-27 17:00] LABS: Hepatitis A Ab IgM Quant 0.13 Index; Hepatitis A Ab IgM Result Negative (Negative); Hepatitis B Core IgM Quant 0.12 Index; Hepatitis B Core IgM Result Negative (Negative); Hepatitis B Surface Ag Quant < 0.10 Index; Hepatitis B Surface Ag Result Negative (Negative); Hepatitis C Virus Ab Quant 0.04 Index; Hepatitis C Virus Ab Result Negative (Negative)
[2018-07-27] MEDS: cefTRIAXone 2,000 MG in SYRINGE 1 EACH IV SCH (18:50)
[2018-07-27] MEDS ORDERED: LIDOCAINE 2% 5 ML VIAL ONE (19:58)
[2018-07-27] MEDS ORDERED: ETOMIDATE 20 MG/10 ML VIAL IV ONE (19:58)
[2018-07-27] MEDS ORDERED: PROPOFOL 200 MG/20 ML VIAL IV ONE (19:58)
[2018-07-27] MEDS: ONDANSETRON 4 MG/2 ML VIAL IV PRN (22:15)
[2018-07-28] MEDS: MORPHINE 4 MG/1 ML VIAL IV PRN ×6 (03:40→21:44)
[2018-07-28] MEDS: ONDANSETRON 4 MG/2 ML VIAL IV PRN ×5 (03:41→21:45)
[2018-07-28] MEDS: LEVOTHYROXINE 200 MCG TABLET PO SCH (07:45)
[2018-07-28] MEDS: PANTOPRAZOLE 40 MG TABLET PO SCH (11:07)
[2018-07-28] MEDS: CALCITRIOL 0.25 MCG CAPSULE PO SCH (11:07)
[2018-07-28] MEDS: METOPROLOL SUCCINATE XL 50 MG TABLET PO SCH ×2 (11:07→21:50)
[2018-07-28] MEDS: cefTRIAXone 2,000 MG in SYRINGE 1 EACH IV SCH (11:14)
[2018-07-29] MEDS: MORPHINE 4 MG/1 ML VIAL IV PRN ×5 (02:10→22:01)
[2018-07-29] MEDS: ONDANSETRON 4 MG/2 ML VIAL IV PRN ×4 (02:10→22:01)
[2018-07-29] MEDS: PROMETHAZINE 25 MG TABLET PO PRN ×2 (04:44→18:54)
[2018-07-29 05:55] LABS: Basophils # 0.1 10*3/uL (0.0-0.2); Basophils % 0.4 % (0.0-0.8); Eosinophils # 1.1 10*3/uL (0.0-0.87); Immature Granulocytes % 4.4 %; Immature Granulocytes Absolute 0.78 #; Lymphocytes # 1.2 10*3/uL (1.4-4.0); Lymphocytes % 6.8 % (21.3-54.2); Mean Corpuscular HGB Conc 32.2 GM/DL (32-36); Mean Corpuscular Hemoglobin 30 PG (27-34); Mean Corpuscular Volume 92.8 FL (87-102); Mean Platelet Volume 10.1 FL (9.6-12.0); Monocytes # 2.1 10*3/uL (0.11-0.8); Monocytes % 11.9 % (1.7-12.7); NRBC # 0.08 10*3/uL; Neutrophils # 12.3 10*3/uL (1.4-7.4); Neutrophils % 70.5 % (38.7-73.9); Platelet Count 451 T/CUMM (130-400); Red Blood Count 1.94 MC/CUMM (3.8-5.5); Red Cell Distribution Width 18.8 % (9.3-17.3); White Blood Count 17.5 T/CUMM (4-12)
[2018-07-29 05:58] LABS: Hemoglobin 5.8 GM/DL (12.0-16.0)
[2018-07-29 06:31] LABS: Eosinophils 4 % (0-10); Lymphocytes 4 % (20-55); Macrocytosis Slight; Platelet Estimate Adequate; Segmented Neutrophils 80 % (50-85); Total Cells Counted 100
[2018-07-29 06:32] LABS: Hypochromasia 1+; Polychromasia Slight; Target Cells Few
[2018-07-29] MEDS: LEVOTHYROXINE 200 MCG TABLET PO SCH (06:32)
[2018-07-29] MEDS: CALCITRIOL 0.25 MCG CAPSULE PO SCH (10:08)
[2018-07-29] MEDS: PANTOPRAZOLE 40 MG TABLET PO SCH (10:08)
[2018-07-29] MEDS: METOPROLOL SUCCINATE XL 50 MG TABLET PO SCH ×2 (10:10→20:43)
[2018-07-29] MEDS: cefTRIAXone 2,000 MG in SYRINGE 1 EACH IV SCH (10:10)
[2018-07-30] MEDS: PROMETHAZINE 25 MG TABLET PO PRN ×2 (02:30→22:28)
[2018-07-30] MEDS: LEVOTHYROXINE 200 MCG TABLET PO SCH (06:56)
[2018-07-30] MEDS: MORPHINE 4 MG/1 ML VIAL IV PRN ×3 (06:57→19:15)
[2018-07-30] MEDS: ONDANSETRON 4 MG/2 ML VIAL IV PRN ×3 (06:57→19:15)
[2018-07-30] MEDS: cefTRIAXone 2,000 MG in SYRINGE 1 EACH IV SCH (08:48)
[2018-07-30] MEDS: CALCITRIOL 0.25 MCG CAPSULE PO SCH (08:49)
[2018-07-30] MEDS: PANTOPRAZOLE 40 MG TABLET PO SCH (08:50)
[2018-07-30] MEDS: METOPROLOL SUCCINATE XL 50 MG TABLET PO SCH ×2 (08:50→20:54)
[2018-07-31] MEDS: MORPHINE 4 MG/1 ML VIAL IV PRN ×4 (00:57→19:27)
[2018-07-31] MEDS: ONDANSETRON 4 MG/2 ML VIAL IV PRN ×4 (00:59→19:27)
[2018-07-31] MEDS: PROMETHAZINE 25 MG TABLET PO PRN ×3 (04:53→21:37)
[2018-07-31 06:02] LABS: Basophils # 0.1 10*3/uL (0.0-0.2); Basophils % 0.4 % (0.0-0.8); Immature Granulocytes % 3.4 %; Immature Granulocytes Absolute 0.48 #; Lymphocytes # 1.3 10*3/uL (1.4-4.0); Lymphocytes % 9.1 % (21.3-54.2); Mean Corpuscular HGB Conc 31.4 GM/DL (32-36); Mean Corpuscular Hemoglobin 29 PG (27-34); Mean Corpuscular Volume 91.6 FL (87-102); Mean Platelet Volume 10.7 FL (9.6-12.0); Monocytes # 2.2 10*3/uL (0.11-0.8); Monocytes % 15.6 % (1.7-12.7); NRBC # 0.03 10*3/uL; Neutrophils # 9.2 10*3/uL (1.4-7.4); Neutrophils % 64.5 % (38.7-73.9); Platelet Count 383 T/CUMM (130-400); Red Blood Count 1.91 MC/CUMM (3.8-5.5); Red Cell Distribution Width 19.4 % (9.3-17.3); White Blood Count 14.2 T/CUMM (4-12)
[2018-07-31 06:15] LABS: Hemoglobin 5.5 GM/DL (12.0-16.0)
[2018-07-31 06:16] LABS: Hematocrit 17.5 VOL% (35.7-47.0)
[2018-07-31 06:22] LABS: Alanine Aminotransferase < 9 U/L (13-56); Alkaline Phosphatase 74 U/L (45-117); Aspartate Amino Transferase 17 U/L (0-37); Bilirubin,Direct < 0.100 MG/DL (0.0-0.20); Bilirubin,Indirect 0.3 MG/DL (0.0-1.0); Bilirubin,Total < 0.39 MG/DL (0.2-1.0); Iron 14 UG/DL (50-170); Iron Binding Capacity 50 UG/DL (250-450); Total Protein 5.7 G/DL (6.4-8.3)
[2018-07-31 06:25] LABS: Eosinophils 14 % (0-10); Hypochromasia 1+; Lymphocytes 5 % (20-55); Macrocytosis Slight; Platelet Estimate Adequate; Polychromasia Slight; Segmented Neutrophils 69 % (50-85); Target Cells Few; Total Cells Counted 100
[2018-07-31] MEDS: LEVOTHYROXINE 200 MCG TABLET PO SCH (06:58)
[2018-07-31 07:04] LABS: Albumin 1.8 G/DL (3.4-5.0); Calcium 7.6 MG/DL (8.5-10.1)
[2018-07-31 07:05] LABS: Blood Urea Nitrogen 11 MG/DL (7-18); Glucose 71 MG/DL (74-106); Osmolality,Calculated 269.8 MOS/KG (273-304); Potassium 3.5 MMOL/L (3.5-5.1); Sodium 137 MMOL/L (136-145)
[2018-07-31] MEDS: CALCITRIOL 0.25 MCG CAPSULE PO SCH (09:29)
[2018-07-31] MEDS: PANTOPRAZOLE 40 MG TABLET PO SCH (09:30)
[2018-07-31] MEDS: cefTRIAXone 2,000 MG in SYRINGE 1 EACH IV SCH (09:30)
[2018-07-31] MEDS: METOPROLOL SUCCINATE XL 50 MG TABLET PO SCH ×2 (09:31→20:36)
[2018-07-31] MEDS: methylPREDNISolone SOD SUC 40 MG/1 ML VIAL IV SCH (15:26)
[2018-08-01] MEDS: ONDANSETRON 4 MG/2 ML VIAL IV PRN ×3 (02:15→23:14)
[2018-08-01] MEDS: MORPHINE 4 MG/1 ML VIAL IV PRN ×3 (02:15→23:12)
[2018-08-01] MEDS: methylPREDNISolone SOD SUC 40 MG/1 ML VIAL IV SCH ×2 (02:24→13:00)
[2018-08-01] MEDS: PROMETHAZINE 25 MG TABLET PO PRN ×2 (05:19→21:03)
[2018-08-01 06:50] LABS: Basophils # 0.1 10*3/uL (0.0-0.2); Basophils % 0.4 % (0.0-0.8); Eosinophils % 0.2 % (0.00-10.9); Hematocrit 20.8 VOL% (35.7-47.0); Hemoglobin 6.8 GM/DL (12.0-16.0); Immature Granulocytes Absolute 0.34 #; Mean Corpuscular HGB Conc 32.7 GM/DL (32-36); Mean Corpuscular Hemoglobin 29 PG (27-34); Mean Corpuscular Volume 88.5 FL (87-102); Mean Platelet Volume 10.7 FL (9.6-12.0); Monocytes # 0.5 10*3/uL (0.11-0.8); Monocytes % 3.1 % (1.7-12.7); NRBC # 0.04 10*3/uL; Neutrophils # 15.1 10*3/uL (1.4-7.4); Neutrophils % 88.3 % (38.7-73.9); Platelet Count 524 T/CUMM (130-400); Red Blood Count 2.35 MC/CUMM (3.8-5.5); Red Cell Distribution Width 19.5 % (9.3-17.3); White Blood Count 17.1 T/CUMM (4-12)
[2018-08-01] MEDS: LEVOTHYROXINE 200 MCG TABLET PO SCH (07:07)
[2018-08-01 07:09] LABS: Alanine Aminotransferase < 9 U/L (13-56); Albumin 2.4 G/DL (3.4-5.0); Alkaline Phosphatase 98 U/L (45-117); Aspartate Amino Transferase 17 U/L (0-37); Bilirubin,Total < 0.39 MG/DL (0.2-1.0); Blood Urea Nitrogen 18 MG/DL (7-18); Calcium 8.1 MG/DL (8.5-10.1); Glucose 129 MG/DL (74-106); Osmolality,Calculated 271.2 MOS/KG (273-304); Potassium 3.9 MMOL/L (3.5-5.1); Sodium 134 MMOL/L (136-145); Total Protein 7.4 G/DL (6.4-8.3)
[2018-08-01] MEDS: cefTRIAXone 2,000 MG in SYRINGE 1 EACH IV SCH (08:09)
[2018-08-01] MEDS: CALCITRIOL 0.25 MCG CAPSULE PO SCH (08:12)
[2018-08-01] MEDS: PANTOPRAZOLE 40 MG TABLET PO SCH (08:12)
[2018-08-01] MEDS: METOPROLOL SUCCINATE XL 50 MG TABLET PO SCH ×2 (09:00→21:04)
[2018-08-01] MEDS ORDERED: BUPIVACAINE 0.5% 50 ML VIAL ONE (12:01)
[2018-08-01] MEDS ORDERED: LIDOCAINE 1%/EPI INJ 20 ML VIAL ONE (12:02)
[2018-08-01] MEDS ORDERED: TISSUE ADHESIVE 1 EACH APPLICATOR TOP ONE (13:38)
[2018-08-01] MEDS ORDERED: PROPOFOL 200 MG/20 ML VIAL IV ONE (14:21)
[2018-08-01] MEDS ORDERED: SEVOFLURANE 1 UNIT/15 MINUTE INH ONE (14:21)
[2018-08-01] MEDS ORDERED: DESFLURANE 1 UNIT/15 MINUTE INH ONE (14:21)
[2018-08-01] MEDS ORDERED: fentaNYL 100 MCG/2 ML VIAL ONE (14:21)
[2018-08-01] MEDS ORDERED: SODIUM CHLORIDE 0.9% 500 ML IV ONE (14:22)
[2018-08-01] MEDS ORDERED: ROCURONIUM 100 MG/10 ML VIAL IV ONE (14:22)
[2018-08-01] MEDS ORDERED: ONDANSETRON 4 MG/2 ML VIAL IV PRN (14:22)
[2018-08-01] MEDS ORDERED: NEOSTIGMINE 10 MG/10 ML VIAL ONE (14:22)
[2018-08-01] MEDS ORDERED: GLYCOPYRROLATE 0.4 MG/2 ML VIAL ONE (14:22)
[2018-08-01] MEDS ORDERED: MORPHINE 10 MG/1 ML VIAL IV PRN (14:22)
[2018-08-01] MEDS ORDERED: PHENYLEPHRINE 10 MG/1 ML VIAL IV ONE (14:22)
[2018-08-01] MEDS ORDERED: ETOMIDATE 40 MG/20 ML VIAL IV ONE (14:22)
[2018-08-01] MEDS ORDERED: ONDANSETRON 4 MG/2 ML VIAL ONE (14:24)
[2018-08-01] MEDS ORDERED: MORPHINE 10 MG/1 ML VIAL ONE (14:24)
[2018-08-01] MEDS ORDERED: NALOXONE 0.4 MG/ML VIAL IV PRN (16:03)
[2018-08-02] MEDS: PROMETHAZINE 25 MG TABLET PO PRN ×2 (03:30→20:17)
[2018-08-02] MEDS: methylPREDNISolone SOD SUC 40 MG/1 ML VIAL IV SCH ×2 (03:30→12:55)
[2018-08-02 04:33] LABS: Basophils % 0.3 % (0.0-0.8); Eosinophils # 0.3 10*3/uL (0.0-0.87); Eosinophils % 2.4 % (0.00-10.9); Immature Granulocytes % 2.1 %; Immature Granulocytes Absolute 0.29 #; Lymphocytes # 1.6 10*3/uL (1.4-4.0); Lymphocytes % 11.6 % (21.3-54.2); Mean Corpuscular HGB Conc 33.3 GM/DL (32-36); Mean Corpuscular Hemoglobin 29 PG (27-34); Mean Corpuscular Volume 88.1 FL (87-102); Mean Platelet Volume 10.6 FL (9.6-12.0); Monocytes # 1.5 10*3/uL (0.11-0.8); Monocytes % 10.9 % (1.7-12.7); NRBC # 0.06 10*3/uL; Neutrophils # 9.9 10*3/uL (1.4-7.4); Neutrophils % 72.7 % (38.7-73.9); Platelet Count 433 T/CUMM (130-400); Red Blood Count 2.01 MC/CUMM (3.8-5.5); Red Cell Distribution Width 19.2 % (9.3-17.3); White Blood Count 13.7 T/CUMM (4-12)
[2018-08-02 04:44] LABS: Calcium 7.6 MG/DL (8.5-10.1); Osmolality,Calculated 270.8 MOS/KG (273-304); Potassium 3.3 MMOL/L (3.5-5.1)
[2018-08-02 04:46] LABS: Hematocrit 17.7 VOL% (35.7-47.0); Hemoglobin 5.9 GM/DL (12.0-16.0)
[2018-08-02] MEDS: LEVOTHYROXINE 200 MCG TABLET PO SCH (06:43)
[2018-08-02] MEDS: ONDANSETRON 4 MG/2 ML VIAL IV PRN ×3 (06:44→17:56)
[2018-08-02] MEDS: MORPHINE 4 MG/1 ML VIAL IV PRN ×4 (06:44→17:52)
[2018-08-02] MEDS ORDERED: NALOXONE 0.4 MG/ML VIAL IV PRN (06:57)
[2018-08-02] MEDS ORDERED: MORPHINE PCA 30 MG/30 ML SYRINGE IV SCH (07:00)
[2018-08-02] MEDS: CALCITRIOL 0.25 MCG CAPSULE PO SCH (10:03)
[2018-08-02] MEDS: cefTRIAXone 2,000 MG in SYRINGE 1 EACH IV SCH (10:03)
[2018-08-02] MEDS: PANTOPRAZOLE 40 MG TABLET PO SCH (10:04)
[2018-08-02] MEDS: METOPROLOL SUCCINATE XL 50 MG TABLET PO SCH ×2 (10:04→20:17)
[2018-08-03] MEDS: methylPREDNISolone SOD SUC 40 MG/1 ML VIAL IV SCH ×2 (00:45→12:59)
[2018-08-03] MEDS: PROMETHAZINE 25 MG TABLET PO PRN ×3 (00:45→17:27)
[2018-08-03] MEDS: MORPHINE 4 MG/1 ML VIAL IV PRN ×6 (02:55→23:46)
[2018-08-03] MEDS: ONDANSETRON 4 MG/2 ML VIAL IV PRN ×6 (02:57→23:45)
[2018-08-03 05:46] LABS: Basophils % 0.2 % (0.0-0.8); Eosinophils % 0.1 % (0.00-10.9); Hematocrit 18.3 VOL% (35.7-47.0); Immature Granulocytes % 1.6 %; Immature Granulocytes Absolute 0.27 #; Lymphocytes # 1.1 10*3/uL (1.4-4.0); Lymphocytes % 6.4 % (21.3-54.2); Mean Corpuscular HGB Conc 32.2 GM/DL (32-36); Mean Corpuscular Hemoglobin 29 PG (27-34); Mean Corpuscular Volume 88.4 FL (87-102); Mean Platelet Volume 10.8 FL (9.6-12.0); Monocytes # 0.8 10*3/uL (0.11-0.8); Monocytes % 4.8 % (1.7-12.7); NRBC # 0.05 10*3/uL; Neutrophils # 14.5 10*3/uL (1.4-7.4); Neutrophils % 86.9 % (38.7-73.9); Platelet Count 475 T/CUMM (130-400); Red Blood Count 2.07 MC/CUMM (3.8-5.5); Red Cell Distribution Width 19.9 % (9.3-17.3); White Blood Count 16.7 T/CUMM (4-12)
[2018-08-03 06:03] LABS: Hemoglobin 5.9 GM/DL (12.0-16.0)
[2018-08-03 06:05] LABS: Calcium 7.9 MG/DL (8.5-10.1); Osmolality,Calculated 273.1 MOS/KG (273-304); Potassium 4.3 MMOL/L (3.5-5.1)
[2018-08-03] MEDS: LEVOTHYROXINE 200 MCG TABLET PO SCH (06:15)
[2018-08-03] MEDS: PANTOPRAZOLE 40 MG TABLET PO SCH (08:52)
[2018-08-03] MEDS: cefTRIAXone 2,000 MG in SYRINGE 1 EACH IV SCH (08:52)
[2018-08-03] MEDS: CALCITRIOL 0.25 MCG CAPSULE PO SCH (08:52)
[2018-08-03] MEDS: METOPROLOL SUCCINATE XL 50 MG TABLET PO SCH ×2 (08:52→21:03)
[2018-08-03] MEDS: cefTAZidime 500 MG in SODIUM CHLORIDE 0.9% 100 ML IV SCH (11:26)
[2018-08-03] MEDS ORDERED: VANCOMYCIN 1,000 MG VIAL INTRAPERIT SCH (21:00)
[2018-08-04] MEDS: PROMETHAZINE 25 MG TABLET PO PRN ×3 (01:11→21:13)
[2018-08-04] MEDS: methylPREDNISolone SOD SUC 40 MG/1 ML VIAL IV SCH ×2 (01:12→13:23)
[2018-08-04] MEDS: MORPHINE 4 MG/1 ML VIAL IV PRN ×6 (03:09→23:27)
[2018-08-04] MEDS: ONDANSETRON 4 MG/2 ML VIAL IV PRN ×6 (03:10→23:20)
[2018-08-04 06:08] LABS: Basophils % 0.2 % (0.0-0.8); Eosinophils % 0.2 % (0.00-10.9); Hematocrit 18.9 VOL% (35.7-47.0); Immature Granulocytes % 4.4 %; Immature Granulocytes Absolute 0.75 #; Lymphocytes # 1.2 10*3/uL (1.4-4.0); Lymphocytes % 6.8 % (21.3-54.2); Mean Corpuscular HGB Conc 32.3 GM/DL (32-36); Mean Corpuscular Hemoglobin 29 PG (27-34); Mean Corpuscular Volume 89.2 FL (87-102); Mean Platelet Volume 10.6 FL (9.6-12.0); Monocytes # 0.9 10*3/uL (0.11-0.8); NRBC # 0.18 10*3/uL; Neutrophils # 14.3 10*3/uL (1.4-7.4); Neutrophils % 83.4 % (38.7-73.9); Platelet Count 527 T/CUMM (130-400); Red Blood Count 2.12 MC/CUMM (3.8-5.5); White Blood Count 17.2 T/CUMM (4-12)
[2018-08-04 06:15] LABS: Hemoglobin 6.1 GM/DL (12.0-16.0)
[2018-08-04 06:49] LABS: Band Neutrophils 6 % (0-10); Eosinophils 2 % (0-10); Lymphocytes 12 % (20-55); Nucleated Red Blood Cells 2 (0-5); Segmented Neutrophils 75 % (50-85); Total Cells Counted 100
[2018-08-04 06:50] LABS: Platelet Estimate Increased; Polychromasia Slight; Target Cells Few
[2018-08-04 06:51] LABS: Anisocytosis 2+; Poikilocytosis Slight
[2018-08-04] MEDS: LEVOTHYROXINE 200 MCG TABLET PO SCH (07:06)
[2018-08-04] MEDS: CALCITRIOL 0.25 MCG CAPSULE PO SCH (09:15)
[2018-08-04] MEDS: METOPROLOL SUCCINATE XL 50 MG TABLET PO SCH ×2 (09:16→21:13)
[2018-08-04] MEDS: PANTOPRAZOLE 40 MG TABLET PO SCH (09:16)
[2018-08-04] MEDS: cefTAZidime 500 MG in SODIUM CHLORIDE 0.9% 100 ML IV SCH (11:22)
[2018-08-05] MEDS: methylPREDNISolone SOD SUC 40 MG/1 ML VIAL IV SCH ×2 (01:41→13:00)
[2018-08-05] MEDS: LEVOTHYROXINE 200 MCG TABLET PO SCH (06:55)
[2018-08-05] MEDS: ONDANSETRON 4 MG/2 ML VIAL IV PRN ×5 (07:13→23:56)
[2018-08-05] MEDS: MORPHINE 4 MG/1 ML VIAL IV PRN ×4 (07:19→19:16)
[2018-08-05] MEDS: CALCITRIOL 0.25 MCG CAPSULE PO SCH (09:15)
[2018-08-05] MEDS: PANTOPRAZOLE 40 MG TABLET PO SCH (09:16)
[2018-08-05] MEDS: METOPROLOL SUCCINATE XL 50 MG TABLET PO SCH ×2 (09:16→21:13)
[2018-08-05] MEDS: cefTAZidime 500 MG in SODIUM CHLORIDE 0.9% 100 ML IV SCH (11:00)
[2018-08-05] MEDS: PROMETHAZINE 25 MG TABLET PO PRN (17:18)
[2018-08-06] MEDS: MORPHINE 4 MG/1 ML VIAL IV PRN ×6 (00:04→23:54)
[2018-08-06] MEDS: methylPREDNISolone SOD SUC 40 MG/1 ML VIAL IV SCH ×3 (01:20→14:16)
[2018-08-06] MEDS: PROMETHAZINE 25 MG TABLET PO PRN ×4 (01:23→16:27)
[2018-08-06] MEDS: ONDANSETRON 4 MG/2 ML VIAL IV PRN ×5 (03:23→23:54)
[2018-08-06] MEDS: LEVOTHYROXINE 200 MCG TABLET PO SCH (06:58)
[2018-08-06] MEDS: CALCITRIOL 0.25 MCG CAPSULE PO SCH (08:36)
[2018-08-06] MEDS: METOPROLOL SUCCINATE XL 50 MG TABLET PO SCH ×2 (08:36→21:50)
[2018-08-06] MEDS: PANTOPRAZOLE 40 MG TABLET PO SCH (08:37)
[2018-08-06] MEDS: cefTAZidime 500 MG in SODIUM CHLORIDE 0.9% 100 ML IV SCH (14:23)
[2018-08-07] MEDS: methylPREDNISolone SOD SUC 40 MG/1 ML VIAL IV SCH ×2 (00:50→14:43)
[2018-08-07] MEDS: MORPHINE 4 MG/1 ML VIAL IV PRN ×3 (03:27→13:12)
[2018-08-07] MEDS: ONDANSETRON 4 MG/2 ML VIAL IV PRN ×3 (03:28→13:12)
[2018-08-07 06:00] LABS: Basophils % 0.3 % (0.0-0.8); Eosinophils % 6.5 % (0.00-10.9); Hematocrit 19.9 VOL% (35.7-47.0); Immature Granulocytes % 5.1 %; Immature Granulocytes Absolute 0.79 #; Lymphocytes # 1.6 10*3/uL (1.4-4.0); Lymphocytes % 10.3 % (21.3-54.2); Mean Corpuscular HGB Conc 32.2 GM/DL (32-36); Mean Corpuscular Hemoglobin 29 PG (27-34); Mean Corpuscular Volume 90.5 FL (87-102); Mean Platelet Volume 10.3 FL (9.6-12.0); Monocytes % 12.5 % (1.7-12.7); NRBC # 0.04 10*3/uL; Neutrophils # 10.2 10*3/uL (1.4-7.4); Neutrophils % 65.3 % (38.7-73.9); Platelet Count 490 T/CUMM (130-400); Red Cell Distribution Width 21.2 % (9.3-17.3); White Blood Count 15.6 T/CUMM (4-12)
[2018-08-07 06:07] LABS: Hemoglobin 6.4 GM/DL (12.0-16.0)
[2018-08-07 06:30] LABS: Eosinophils 11 % (0-10); Hypochromasia 1+; Lymphocytes 10 % (20-55); Metamyelocytes 1 %; Myelocytes 1 %; Segmented Neutrophils 70 % (50-85); Total Cells Counted 100
[2018-08-07 06:31] LABS: Anisocytosis 1+; Microcytosis 1+; Polychromasia Slight; Target Cells Few
[2018-08-07 06:32] LABS: Platelet Estimate Increased
[2018-08-07] MEDS: LEVOTHYROXINE 200 MCG TABLET PO SCH (07:29)
[2018-08-07] MEDS: PANTOPRAZOLE 40 MG TABLET PO SCH (09:11)
[2018-08-07] MEDS: CALCITRIOL 0.25 MCG CAPSULE PO SCH (09:11)
[2018-08-07] MEDS: METOPROLOL SUCCINATE XL 50 MG TABLET PO SCH ×2 (11:46→22:08)
[2018-08-07] MEDS: cefTAZidime 500 MG in SODIUM CHLORIDE 0.9% 100 ML IV SCH (13:01)
[2018-08-08] MEDS: ONDANSETRON 4 MG/2 ML VIAL IV PRN ×3 (00:32→14:53)
[2018-08-08] MEDS: MORPHINE 4 MG/1 ML VIAL IV PRN ×4 (00:32→14:51)
[2018-08-08] MEDS: methylPREDNISolone SOD SUC 40 MG/1 ML VIAL IV SCH ×2 (00:32→12:35)
[2018-08-08] MEDS: PROMETHAZINE 25 MG TABLET PO PRN ×3 (02:51→20:59)
[2018-08-08] MEDS: LEVOTHYROXINE 200 MCG TABLET PO SCH (07:38)
[2018-08-08] MEDS: METOPROLOL SUCCINATE XL 50 MG TABLET PO SCH ×2 (09:13→20:57)
[2018-08-08] MEDS: CALCITRIOL 0.25 MCG CAPSULE PO SCH (09:13)
[2018-08-08] MEDS: PANTOPRAZOLE 40 MG TABLET PO SCH (09:13)
[2018-08-08] MEDS: cefTAZidime 500 MG in SODIUM CHLORIDE 0.9% 100 ML IV SCH (14:51)
[2018-08-08] MEDS: oxyCODONE ER 20 MG TABLET PO SCH (20:56)
[2018-08-09] MEDS: methylPREDNISolone SOD SUC 40 MG/1 ML VIAL IV SCH ×2 (02:05→14:16)
[2018-08-09] MEDS: MORPHINE 4 MG/1 ML VIAL IV PRN (03:01)
[2018-08-09] MEDS: ONDANSETRON 4 MG/2 ML VIAL IV PRN (03:01)
[2018-08-09] MEDS: LEVOTHYROXINE 200 MCG TABLET PO SCH (06:24)
[2018-08-09] MEDS: CALCITRIOL 0.25 MCG CAPSULE PO SCH (08:14)
[2018-08-09] MEDS: PANTOPRAZOLE 40 MG TABLET PO SCH (08:14)
[2018-08-09 08:21] LABS: Basophils % 0.3 % (0.0-0.8); Eosinophils # 1.4 10*3/uL (0.0-0.87); Eosinophils % 10.9 % (0.00-10.9); Hematocrit 20.1 VOL% (35.7-47.0); Hemoglobin 6.5 GM/DL (12.0-16.0); Immature Granulocytes % 3.8 %; Immature Granulocytes Absolute 0.48 #; Lymphocytes # 1.2 10*3/uL (1.4-4.0); Lymphocytes % 9.2 % (21.3-54.2); Mean Corpuscular HGB Conc 32.3 GM/DL (32-36); Mean Corpuscular Hemoglobin 29 PG (27-34); Mean Corpuscular Volume 89.7 FL (87-102); Mean Platelet Volume 10.7 FL (9.6-12.0); Monocytes # 1.7 10*3/uL (0.11-0.8); Monocytes % 13.3 % (1.7-12.7); NRBC # 0.04 10*3/uL; Neutrophils # 7.9 10*3/uL (1.4-7.4); Neutrophils % 62.5 % (38.7-73.9); Platelet Count 482 T/CUMM (130-400); Red Blood Count 2.24 MC/CUMM (3.8-5.5); Red Cell Distribution Width 20.8 % (9.3-17.3); White Blood Count 12.6 T/CUMM (4-12)
[2018-08-09 08:36] LABS: Albumin 2.1 G/DL (3.4-5.0); Calcium 7.9 MG/DL (8.5-10.1); Osmolality,Calculated 271.1 MOS/KG (273-304); Potassium 4.1 MMOL/L (3.5-5.1)
[2018-08-09] MEDS: PROMETHAZINE 25 MG TABLET PO PRN (09:16)
[2018-08-09] MEDS: METOPROLOL SUCCINATE XL 50 MG TABLET PO SCH ×2 (09:16→20:57)
[2018-08-09] MEDS: oxyCODONE ER 20 MG TABLET PO SCH (09:16)
[2018-08-09] MEDS: cefTAZidime 500 MG in SODIUM CHLORIDE 0.9% 100 ML IV SCH (15:01)
[2018-08-09] MEDS: oxyCODONE ER 10 MG TABLET PO SCH (20:57)
[2018-08-10] MEDS: PROMETHAZINE 25 MG TABLET PO PRN ×2 (00:26→12:23)
[2018-08-10] MEDS: methylPREDNISolone SOD SUC 40 MG/1 ML VIAL IV SCH ×2 (01:47→13:39)
[2018-08-10 04:38] LABS: Basophils # 0.1 10*3/uL (0.0-0.2); Basophils % 0.4 % (0.0-0.8); Eosinophils # 1.3 10*3/uL (0.0-0.87); Eosinophils % 11.1 % (0.00-10.9); Hematocrit 19.5 VOL% (35.7-47.0); Immature Granulocytes % 3.2 %; Immature Granulocytes Absolute 0.37 #; Lymphocytes # 1.2 10*3/uL (1.4-4.0); Lymphocytes % 10.5 % (21.3-54.2); Mean Corpuscular HGB Conc 31.8 GM/DL (32-36); Mean Corpuscular Hemoglobin 28 PG (27-34); Mean Corpuscular Volume 88.2 FL (87-102); Mean Platelet Volume 10.5 FL (9.6-12.0); Monocytes # 1.8 10*3/uL (0.11-0.8); Monocytes % 15.9 % (1.7-12.7); NRBC # 0.04 10*3/uL; Neutrophils # 6.8 10*3/uL (1.4-7.4); Neutrophils % 58.9 % (38.7-73.9); Platelet Count 500 T/CUMM (130-400); Red Blood Count 2.21 MC/CUMM (3.8-5.5); White Blood Count 11.5 T/CUMM (4-12)
[2018-08-10 04:44] LABS: Hemoglobin 6.2 GM/DL (12.0-16.0)
[2018-08-10 04:58] LABS: Calcium 7.7 MG/DL (8.5-10.1); Osmolality,Calculated 277.7 MOS/KG (273-304)
[2018-08-10 05:00] LABS: Eosinophils 8 % (0-10); Lymphocytes 12 % (20-55); Segmented Neutrophils 67 % (50-85); Total Cells Counted 100
[2018-08-10 05:01] LABS: Anisocytosis 1+; Hypochromasia 2+; Macrocytosis 1+; Platelet Estimate Increased; Target Cells 1+
[2018-08-10] MEDS: LEVOTHYROXINE 200 MCG TABLET PO SCH (06:53)
[2018-08-10] MEDS: oxyCODONE ER 10 MG TABLET PO SCH (10:06)
[2018-08-10] MEDS ORDERED: MORPHINE 4 MG/1 ML VIAL IV PRN (10:45)
[2018-08-10] MEDS: CALCITRIOL 0.25 MCG CAPSULE PO SCH (12:23)
[2018-08-10] MEDS: PANTOPRAZOLE 40 MG TABLET PO SCH (12:23)
[2018-08-10] MEDS: METOPROLOL SUCCINATE XL 50 MG TABLET PO SCH (12:24)
[2018-08-10 12:34] VITALS: BP 117/75
== END 2018-08-10 15:02 | disposition home or self-care (01) | DRG 907 ==
LOC: N.EDINP 22:27 → N.ED 22:27 → N.5E 07-16 04:56 → SUATTDRO 07-16 09:51 → N.ICU 07-17 09:48 → N.TELES 07-17 16:26 → N.ICU 07-23 11:13 → N.3E 07-26 16:53
PROVIDERS: ADMIT Internal Medicine; ATTEND Internal Medicine

== ENCOUNTER 2020-10-03 23:35 | Inpatient (IN) ==
[2020-10-03] MEDS ORDERED: ACETAMINOPHEN 500 MG TABLET PO STA (23:50)
[2020-10-03] MEDS ORDERED: SODIUM CHLORIDE 0.9% 500 ML IV STA (23:50)
[2020-10-04 00:48] LABS: Basophils % 0.3 % (0.0-0.8); Eosinophils # 0.3 10*3/uL (0.0-0.87); Eosinophils % 1.8 % (0.00-10.9); Hematocrit 35.3 VOL% (35.7-47.0); Hemoglobin 12.6 GM/DL (12.0-16.0); Immature Granulocytes % 0.6 %; Lymphocytes % 6.2 % (21.3-54.2); Mean Corpuscular HGB Conc 35.7 GM/DL (32-36); Mean Corpuscular Volume 94.9 FL (87-102); Mean Platelet Volume 11.4 FL (9.6-12.0); Monocytes % 7.1 % (1.7-12.7); Platelet Count 265 T/CUMM (130-400); Red Blood Count 3.72 MC/CUMM (3.8-5.5); Red Cell Distribution Width 18.6 % (9.3-17.3); White Blood Count 15.5 T/CUMM (4-12)
[2020-10-04 00:57] LABS: Alanine Aminotransferase 17 U/L (13-56); Albumin 3.6 G/DL (3.4-5.0); Alkaline Phosphatase 103 U/L (45-117); Aspartate Amino Transferase 19 U/L (0-37); Blood Urea Nitrogen 39 MG/DL (7-18); Carbon Dioxide 25 MMOL/L (21-32); Estimated Glom Filtration Rate 5 ML/MIN; Glucose 98 MG/DL (74-106); Osmolality,Calculated 274.4 MOS/KG (273-304); Potassium 4.4 MMOL/L (3.5-5.1); Sodium 133 MMOL/L (136-145); Total Protein 8.6 G/DL (6.4-8.2)
[2020-10-04] MEDS ORDERED: ONDANSETRON 4 MG/2 ML VIAL ONE (01:27)
[2020-10-04] MEDS ORDERED: ONDANSETRON 4 MG/2 ML VIAL IV STA (01:27)
[2020-10-04] MEDS ORDERED: cefTRIAXone 1,000 MG in SODIUM CHLORIDE 0.9% 100 ML IV STA (02:14)
[2020-10-04] MEDS ORDERED: GLUCAGON 1 MG VIAL IM PRN (03:10)
[2020-10-04] MEDS ORDERED: DEXTROSE 50% 25 GM/50 ML VIAL IV PRN (03:10)
[2020-10-04] MEDS ORDERED: ACETAMINOPHEN 325 MG TABLET PO PRN (03:10)
[2020-10-04] MEDS: ONDANSETRON 4 MG/2 ML VIAL IV PRN ×2 (06:34→19:46)
[2020-10-04] MEDS: HYDROXYCHLOROQUINE 200 MG TABLET PO SCH (09:13)
[2020-10-04] MEDS: FERROUS SULFATE 325 MG TABLET PO SCH (09:13)
[2020-10-04] MEDS: METOPROLOL TARTRATE 50 MG TABLET PO SCH ×2 (09:13→21:29)
[2020-10-04] MEDS: LEVOTHYROXINE 100 MCG TABLET PO SCH (09:13)
[2020-10-04] MEDS: predniSONE 5 MG TABLET PO SCH (09:13)
[2020-10-04] MEDS: DOCUSATE SODIUM 100 MG CAPSULE PO SCH (09:13)
[2020-10-04] MEDS ORDERED: SODIUM CHLORIDE 0.9% 500 ML IV ONE ×2 (09:21→14:36)
[2020-10-04] MEDS: PANTOPRAZOLE 40 MG VIAL IV SCH ×2 (11:57→21:43)
[2020-10-04] MEDS: CALCIUM ACETATE 667 MG CAPSULE PO SCH ×2 (11:57→16:21)
[2020-10-04 12:34] LABS: Basophils # 0.1 10*3/uL (0.0-0.2); Basophils % 0.3 % (0.0-0.8); Eosinophils # 0.1 10*3/uL (0.0-0.87); Eosinophils % 0.6 % (0.00-10.9); Hematocrit 29.2 VOL% (35.7-47.0); Hemoglobin 10.2 GM/DL (12.0-16.0); Immature Granulocytes % 0.7 %; Immature Granulocytes Absolute 0.13 #; Lymphocytes # 0.6 10*3/uL (1.4-4.0); Lymphocytes % 3.4 % (21.3-54.2); Mean Corpuscular HGB Conc 34.9 GM/DL (32-36); Mean Corpuscular Volume 95.7 FL (87-102); Mean Platelet Volume 11.1 FL (9.6-12.0); Monocytes % 9.1 % (1.7-12.7); Neutrophils % 85.9 % (38.7-73.9); Platelet Count 265 T/CUMM (130-400); Red Blood Count 3.05 MC/CUMM (3.8-5.5); Red Cell Distribution Width 18.6 % (9.3-17.3); White Blood Count 18.7 T/CUMM (4-12)
[2020-10-04] MEDS: PIPERACILLIN/TAZOBACTAM 3,375 MG in SODIUM CHLORIDE 0.9% 100 ML IV SCH ×2 (14:18→15:06)
[2020-10-04] MEDS: SODIUM CHLORIDE 0.9% 1,000 ML IV SCH ×2 (14:18→16:06)
[2020-10-04] MEDS: ROSUVASTATIN 20 MG TABLET PO SCH (21:29)
[2020-10-04] MEDS ORDERED: PROMETHAZINE 25 MG/1 ML VIAL IM STA (23:10)
[2020-10-05] MEDS ORDERED: PROMETHAZINE 25 MG/1 ML VIAL IM PRN (01:17)
[2020-10-05] MEDS: PIPERACILLIN/TAZOBACTAM 3,375 MG in SODIUM CHLORIDE 0.9% 100 ML IV SCH ×2 (02:55→20:34)
[2020-10-05] MEDS: LEVOTHYROXINE 100 MCG TABLET PO SCH (06:55)
[2020-10-05 08:12] LABS: Calcium 6.8 MG/DL (8.5-10.1); Potassium 3.6 MMOL/L (3.5-5.1)
[2020-10-05] MEDS ORDERED: MIDODRINE 5 MG TABLET PO PRN (08:20)
[2020-10-05] MEDS: PANTOPRAZOLE 40 MG VIAL IV SCH ×2 (09:03→20:26)
[2020-10-05] MEDS: METOPROLOL TARTRATE 50 MG TABLET PO SCH ×2 (09:04→20:25)
[2020-10-05] MEDS: FERROUS SULFATE 325 MG TABLET PO SCH (09:04)
[2020-10-05] MEDS: CALCIUM ACETATE 667 MG CAPSULE PO SCH ×3 (09:04→17:28)
[2020-10-05] MEDS: DOCUSATE SODIUM 100 MG CAPSULE PO SCH (09:04)
[2020-10-05] MEDS: HYDROXYCHLOROQUINE 200 MG TABLET PO SCH (09:04)
[2020-10-05] MEDS: predniSONE 5 MG TABLET PO SCH (09:05)
[2020-10-05] MEDS ORDERED: MIDAZOLAM 2 MG/2 ML VIAL ONE ×2 (09:22→11:32)
[2020-10-05] MEDS ORDERED: fentaNYL 100 MCG/2 ML VIAL ONE ×2 (09:22→13:34)
[2020-10-05] MEDS ORDERED: BUPIVACAINE MPF 0.25% 30 ML VIAL ONE ×2 (09:33→11:42)
[2020-10-05] MEDS ORDERED: LIDOCAINE 1% 5 ML VIAL ONE (09:33)
[2020-10-05] MEDS ORDERED: PHENYLEPHRINE DRIP 20 MG/250 ML PREMIX IV ONE (09:45)
[2020-10-05] MEDS ORDERED: HEPARIN/NACL 0.9% 2 UNITS/ML 1,000 UNIT/500 ML BAG IV ONE (09:54)
[2020-10-05] MEDS ORDERED: DEXAMETHASONE 4 MG/1 ML VIAL ONE (10:29)
[2020-10-05] MEDS ORDERED: LIDOCAINE 1%/EPI INJ 20 ML VIAL ONE (11:42)
[2020-10-05 12:27] LABS: ABG Base Excess -5.6 MMOL/L (-2.5-2.5); ABG HCO3 19.8 MMOL/L (20-26); ABG Oxygen Saturation 99.8 % (95-100); ABG PCO2 34.6 MM HG (35-48); ABG PH 7.353 (7.35-7.45); ABG TCO2 17.5 MMOL/L (23-27); Glucose Heart Surgery 112 MG/DL (74-106); Hemoglobin Heart Surgery 10.2 G/DL (12.0-16.0); Ionized Calcium Arterial 0.82 MMOL/L (1.21-1.46); PCO2 Patient Temp Arterial 34.6 MMHG; PH Patient Temp Arterial 7.353; Patient Temperature 37 CELCIUS; Potassium Heart/CVR 3.5 MMOL/L (3.5-5.1); Sodium Heart/CVR 136 MMOL/L (135-145)
[2020-10-05 12:28] LABS: Hematocrit Heart Surgery 31.5 PERCENT (37-47)
[2020-10-05] MEDS ORDERED: SODIUM CHLORIDE 0.9% 250 ML IV ONE (13:30)
[2020-10-05] MEDS ORDERED: NEOSTIGMINE 10 MG/10 ML VIAL ONE (13:30)
[2020-10-05] MEDS ORDERED: CALCIUM CHLORIDE 1,000 MG/10 ML VIAL IV ONE (13:30)
[2020-10-05] MEDS ORDERED: GLYCOPYRROLATE 0.4 MG/2 ML VIAL ONE (13:30)
[2020-10-05] MEDS ORDERED: ETOMIDATE 40 MG/20 ML VIAL IV ONE (13:30)
[2020-10-05] MEDS ORDERED: LIDOCAINE 2% 5 ML VIAL ONE (13:30)
[2020-10-05] MEDS ORDERED: SODIUM BICARBONATE 50 MEQ/50 ML VIAL IV ONE (13:30)
[2020-10-05] MEDS ORDERED: ROCURONIUM 50 MG/5 ML VIAL IV ONE (13:30)
[2020-10-05] MEDS ORDERED: DESFLURANE 1 UNIT/15 MINUTE INH ONE (13:34)
[2020-10-05] MEDS ORDERED: HYDROmorphone 2 MG/1 ML VIAL ONE (14:35)
[2020-10-05] MEDS ORDERED: HYDROmorphone 2 MG/1 ML VIAL IV PRN (14:37)
[2020-10-05] MEDS: MIDODRINE 5 MG TABLET PO SCH ×2 (15:00→20:25)
[2020-10-05] MEDS: HYDROmorphone 2 MG/1 ML VIAL IV PRN ×3 (15:50→23:54)
[2020-10-05 16:39] LABS: Hepatitis B Core IgM Quant 0.09 Index; Hepatitis B Surface Ag Quant < 0.10 Index; Hepatitis B Surface Ag Result Non-Reactive (NonReactive); Hepatitis C Virus Ab Quant 0.13 Index; Hepatitis C Virus Ab Result Non-Reactive (NonReactive)
[2020-10-05] MEDS: SODIUM CHLORIDE 0.9% 1,000 ML IV SCH (18:17)
[2020-10-05] MEDS: HYDROCORTISONE 100 MG VIAL IV SCH (18:17)
[2020-10-05] MEDS: PHENYLEPHRINE DRIP 40 MG/250 ML PREMIX IV PRN ×2 (18:17→23:53)
[2020-10-05] MEDS: ROSUVASTATIN 20 MG TABLET PO SCH (20:25)
[2020-10-06] MEDS: HYDROCORTISONE 100 MG VIAL IV SCH ×3 (01:40→18:27)
[2020-10-06] MEDS: PHENYLEPHRINE DRIP 40 MG/250 ML PREMIX IV PRN ×6 (03:10→20:37)
[2020-10-06] MEDS: HYDROmorphone 2 MG/1 ML VIAL IV PRN ×6 (03:50→20:10)
[2020-10-06 04:19] LABS: Basophils % 0.1 % (0.0-0.8); Hematocrit 27.3 VOL% (35.7-47.0); Hemoglobin 9.8 GM/DL (12.0-16.0); Immature Granulocytes % 0.8 %; Immature Granulocytes Absolute 0.24 #; Lymphocytes # 0.5 10*3/uL (1.4-4.0); Lymphocytes % 1.7 % (21.3-54.2); Mean Corpuscular HGB Conc 35.9 GM/DL (32-36); Mean Corpuscular Volume 93.8 FL (87-102); Mean Platelet Volume 11.1 FL (9.6-12.0); Monocytes % 5.3 % (1.7-12.7); Neutrophils % 92.1 % (38.7-73.9); Platelet Count 370 T/CUMM (130-400); Red Blood Count 2.91 MC/CUMM (3.8-5.5); Red Cell Distribution Width 18.4 % (9.3-17.3); White Blood Count 28.5 T/CUMM (4-12)
[2020-10-06 04:37] LABS: Alanine Aminotransferase 38 U/L (13-56); Albumin 2.2 G/DL (3.4-5.0); Alkaline Phosphatase 93 U/L (45-117); Aspartate Amino Transferase 40 U/L (0-37); Bilirubin,Total < 0.39 MG/DL (0.2-1.0); Blood Urea Nitrogen 75 MG/DL (7-18); Calcium 6.9 MG/DL (8.5-10.1); Carbon Dioxide 21 MMOL/L (21-32); Estimated Glom Filtration Rate 4 ML/MIN; Glucose 145 MG/DL (74-106); Potassium 4.9 MMOL/L (3.5-5.1); Sodium 136 MMOL/L (136-145); Total Protein 7.2 G/DL (6.4-8.2)
[2020-10-06 04:38] LABS: Band Neutrophils 1 % (0-10); Hypochromasia 1+; Lymphocytes 2 % (20-55); Microcytosis 1+; Platelet Estimate Adequate; Segmented Neutrophils 90 % (50-85); Total Cells Counted 100
[2020-10-06] MEDS: LEVOTHYROXINE 100 MCG TABLET PO SCH (05:35)
[2020-10-06] MEDS: DOCUSATE SODIUM 100 MG CAPSULE PO SCH (08:31)
[2020-10-06] MEDS: FERROUS SULFATE 325 MG TABLET PO SCH (08:31)
[2020-10-06] MEDS: CALCIUM ACETATE 667 MG CAPSULE PO SCH ×3 (08:31→16:15)
[2020-10-06] MEDS: HYDROXYCHLOROQUINE 200 MG TABLET PO SCH (08:31)
[2020-10-06] MEDS: MIDODRINE 5 MG TABLET PO SCH ×4 (08:31→20:09)
[2020-10-06] MEDS ORDERED: CALCIUM GLUCONATE 1,000 MG in SODIUM CHLORIDE 0.9% 100 ML IV ONE (09:30)
[2020-10-06] MEDS: PANTOPRAZOLE 40 MG VIAL IV SCH ×2 (09:43→20:35)
[2020-10-06] MEDS: PIPERACILLIN/TAZOBACTAM 3,375 MG in SODIUM CHLORIDE 0.9% 100 ML IV SCH ×2 (09:55→20:38)
[2020-10-06] MEDS ORDERED: HEPARIN 10,000 UNIT/10 ML VIAL IV PRN (13:47)
[2020-10-06] MEDS: SODIUM CHLORIDE 0.9% 1,000 ML IV SCH (14:44)
[2020-10-06] MEDS: ONDANSETRON 4 MG/2 ML VIAL IV PRN (15:15)
[2020-10-06] MEDS: ROSUVASTATIN 20 MG TABLET PO SCH (20:09)
[2020-10-07] MEDS: ONDANSETRON 4 MG/2 ML VIAL IV PRN ×5 (01:07→21:11)
[2020-10-07] MEDS: HYDROmorphone 2 MG/1 ML VIAL IV PRN ×5 (01:09→21:10)
[2020-10-07] MEDS: PHENYLEPHRINE DRIP 40 MG/250 ML PREMIX IV PRN ×2 (01:09→05:19)
[2020-10-07] MEDS: HYDROCORTISONE 100 MG VIAL IV SCH ×3 (01:25→16:08)
[2020-10-07 04:28] LABS: Basophils % 0.1 % (0.0-0.8); Hematocrit 24.5 VOL% (35.7-47.0); Hemoglobin 8.8 GM/DL (12.0-16.0); Immature Granulocytes % 0.8 %; Immature Granulocytes Absolute 0.18 #; Lymphocytes # 0.4 10*3/uL (1.4-4.0); Lymphocytes % 1.7 % (21.3-54.2); Mean Corpuscular HGB Conc 35.9 GM/DL (32-36); Mean Corpuscular Volume 92.8 FL (87-102); Mean Platelet Volume 10.8 FL (9.6-12.0); Monocytes % 4.3 % (1.7-12.7); NRBC # 0.03 10*3/uL; Neutrophils % 93.1 % (38.7-73.9); Platelet Count 370 T/CUMM (130-400); Red Blood Count 2.64 MC/CUMM (3.8-5.5); Red Cell Distribution Width 17.8 % (9.3-17.3); White Blood Count 22.8 T/CUMM (4-12)
[2020-10-07 04:46] LABS: Hypochromasia 2+; Lymphocytes 6 % (20-55); Microcytosis 1+; Platelet Estimate Adequate; Segmented Neutrophils 92 % (50-85); Total Cells Counted 100
[2020-10-07 04:50] LABS: Calcium 6.8 MG/DL (8.5-10.1); Osmolality,Calculated 289.5 MOS/KG (273-304); Potassium 4.5 MMOL/L (3.5-5.1)
[2020-10-07] MEDS: LEVOTHYROXINE 100 MCG TABLET PO SCH ×2 (05:16→08:22)
[2020-10-07] MEDS: SODIUM CHLORIDE 0.9% 1,000 ML IV SCH (05:26)
[2020-10-07] MEDS: PIPERACILLIN/TAZOBACTAM 3,375 MG in SODIUM CHLORIDE 0.9% 100 ML IV SCH (08:14)
[2020-10-07] MEDS: MIDODRINE 5 MG TABLET PO SCH ×3 (08:15→21:11)
[2020-10-07] MEDS: CALCIUM ACETATE 667 MG CAPSULE PO SCH ×3 (08:19→16:08)
[2020-10-07] MEDS: PANTOPRAZOLE 40 MG VIAL IV SCH (08:19)
[2020-10-07] MEDS: HYDROXYCHLOROQUINE 200 MG TABLET PO SCH (08:23)
[2020-10-07] MEDS: DOCUSATE SODIUM 100 MG CAPSULE PO SCH (08:23)
[2020-10-07] MEDS: FERROUS SULFATE 325 MG TABLET PO SCH (08:23)
[2020-10-07] MEDS ORDERED: AMOXICILLIN 875 MG TABLET PO SCH (09:00)
[2020-10-07] MEDS: PANTOPRAZOLE 40 MG TABLET PO SCH ×2 (09:10→21:11)
[2020-10-07] MEDS: CLARITHROMYCIN 500 MG TABLET PO SCH ×2 (09:10→21:11)
[2020-10-07] MEDS: AMOXICILLIN 500 MG CAPSULE PO SCH ×2 (09:10→21:11)
[2020-10-07] MEDS ORDERED: ALTEPLASE 2 MG VIAL IV ONE (14:00)
[2020-10-07] MEDS: ROSUVASTATIN 20 MG TABLET PO SCH (21:11)
[2020-10-08] MEDS: HYDROCORTISONE 100 MG VIAL IV SCH ×2 (01:52→08:04)
[2020-10-08] MEDS: ONDANSETRON 4 MG/2 ML VIAL IV PRN ×4 (03:21→22:45)
[2020-10-08] MEDS: HYDROmorphone 2 MG/1 ML VIAL IV PRN ×4 (03:21→22:45)
[2020-10-08] MEDS: LEVOTHYROXINE 100 MCG TABLET PO SCH (05:31)
[2020-10-08] MEDS: CALCIUM ACETATE 667 MG CAPSULE PO SCH ×3 (07:35→18:22)
[2020-10-08] MEDS: CLARITHROMYCIN 500 MG TABLET PO SCH ×3 (09:08→22:37)
[2020-10-08] MEDS: AMOXICILLIN 500 MG CAPSULE PO SCH ×3 (09:08→22:37)
[2020-10-08] MEDS: FERROUS SULFATE 325 MG TABLET PO SCH (09:08)
[2020-10-08] MEDS: PANTOPRAZOLE 40 MG TABLET PO SCH ×2 (09:08→22:38)
[2020-10-08] MEDS: MIDODRINE 5 MG TABLET PO SCH ×3 (09:08→22:37)
[2020-10-08] MEDS: DOCUSATE SODIUM 100 MG CAPSULE PO SCH (09:08)
[2020-10-08] MEDS ORDERED: POLYVINYL ALCOHOL 1.4% OPH SOLN 15 ML BOTTLE BOTH EYES PRN (10:00)
[2020-10-08] MEDS ORDERED: propofoL 200 MG/20 ML VIAL IV ONE (11:51)
[2020-10-08] MEDS ORDERED: LIDOCAINE 2% 5 ML VIAL ONE (11:51)
[2020-10-08] MEDS ORDERED: DEXMEDETOMIDINE 200 MCG/2 ML VIAL ONE (11:52)
[2020-10-08] MEDS ORDERED: SODIUM CHLORIDE 0.9% 250 ML IV SCH (12:00)
[2020-10-08] MEDS ORDERED: HEPARIN 5,000 UNIT/1 ML VIAL ONE (12:13)
[2020-10-08] MEDS ORDERED: BUPIVACAINE MPF 0.25% 30 ML VIAL ONE (12:13)
[2020-10-08] MEDS ORDERED: LIDOCAINE 1%/EPI INJ 20 ML VIAL ONE (12:13)
[2020-10-08] MEDS ORDERED: MIDAZOLAM 2 MG/2 ML VIAL ONE (12:27)
[2020-10-08] MEDS ORDERED: KETAMINE 500 MG/10 ML VIAL ONE (12:27)
[2020-10-08] MEDS ORDERED: PHENYLEPHRINE 1 MG/10 ML SYRINGE IV ONE (12:42)
[2020-10-08] MEDS: ROSUVASTATIN 20 MG TABLET PO SCH (22:37)
[2020-10-09] MEDS: LEVOTHYROXINE 100 MCG TABLET PO SCH (05:16)
[2020-10-09] MEDS: HYDROmorphone 2 MG/1 ML VIAL IV PRN ×4 (05:16→21:40)
[2020-10-09] MEDS: ONDANSETRON 4 MG/2 ML VIAL IV PRN ×4 (05:16→21:45)
[2020-10-09 05:33] LABS: Basophils % 0.2 % (0.0-0.8); Eosinophils # 0.5 10*3/uL (0.0-0.87); Eosinophils % 5.9 % (0.00-10.9); Hemoglobin 7.6 GM/DL (12.0-16.0); Immature Granulocytes % 2.7 %; Immature Granulocytes Absolute 0.24 #; Lymphocytes # 1.2 10*3/uL (1.4-4.0); Lymphocytes % 13.5 % (21.3-54.2); Mean Corpuscular HGB Conc 36.2 GM/DL (32-36); Mean Corpuscular Volume 92.1 FL (87-102); Mean Platelet Volume 10.5 FL (9.6-12.0); NRBC # 0.03 10*3/uL; Neutrophils % 68.7 % (38.7-73.9); Platelet Count 370 T/CUMM (130-400); Red Blood Count 2.28 MC/CUMM (3.8-5.5); Red Cell Distribution Width 17.8 % (9.3-17.3); White Blood Count 8.8 T/CUMM (4-12)
[2020-10-09 06:02] LABS: Albumin 2.2 G/DL (3.4-5.0); Bilirubin,Total 0.5 MG/DL (0.2-1.0); Osmolality,Calculated 284.4 MOS/KG (273-304); Potassium 3.4 MMOL/L (3.5-5.1); Total Protein 6.2 G/DL (6.4-8.2)
[2020-10-09] MEDS ORDERED: oxyCODONE/ACETAMINOPHEN 5-325 MG TABLET PO PRN (11:49)
[2020-10-09] MEDS: FERROUS SULFATE 325 MG TABLET PO SCH (13:17)
[2020-10-09] MEDS: AMOXICILLIN 500 MG CAPSULE PO SCH (13:18)
[2020-10-09] MEDS: DOCUSATE SODIUM 100 MG CAPSULE PO SCH (13:18)
[2020-10-09] MEDS: CLARITHROMYCIN 500 MG TABLET PO SCH (13:19)
[2020-10-09] MEDS: PANTOPRAZOLE 40 MG TABLET PO SCH (13:19)
[2020-10-09] MEDS: MIDODRINE 5 MG TABLET PO SCH ×3 (13:19→23:21)
[2020-10-09] MEDS: CALCIUM ACETATE 667 MG CAPSULE PO SCH ×3 (13:19→18:39)
[2020-10-10] MEDS: AMOXICILLIN 500 MG CAPSULE PO SCH ×2 (00:04→09:07)
[2020-10-10] MEDS: CLARITHROMYCIN 500 MG TABLET PO SCH ×2 (00:05→09:06)
[2020-10-10] MEDS: PANTOPRAZOLE 40 MG TABLET PO SCH ×2 (00:05→09:07)
[2020-10-10] MEDS: ROSUVASTATIN 20 MG TABLET PO SCH ×2 (00:05→21:36)
[2020-10-10] MEDS: HYDROmorphone 2 MG/1 ML VIAL IV PRN ×3 (03:33→13:24)
[2020-10-10] MEDS: ONDANSETRON 4 MG/2 ML VIAL IV PRN ×4 (03:35→18:33)
[2020-10-10] MEDS: CALCIUM ACETATE 667 MG CAPSULE PO SCH ×3 (08:37→18:43)
[2020-10-10] MEDS: LEVOTHYROXINE 100 MCG TABLET PO SCH (09:06)
[2020-10-10] MEDS: MIDODRINE 5 MG TABLET PO SCH ×3 (09:06→21:36)
[2020-10-10] MEDS: FERROUS SULFATE 325 MG TABLET PO SCH (09:07)
[2020-10-10] MEDS: DOCUSATE SODIUM 100 MG CAPSULE PO SCH (09:07)
[2020-10-10] MEDS: PANTOPRAZOLE 40 MG VIAL IV SCH ×2 (13:23→21:45)
[2020-10-10] MEDS: SODIUM CHLORIDE 0.9% 1,000 ML IV SCH (13:43)
[2020-10-10] MEDS: PIPERACILLIN/TAZOBACTAM 3,375 MG in SODIUM CHLORIDE 0.9% 100 ML IV SCH ×2 (13:44→21:35)
[2020-10-10] MEDS: metroNIDAZOLE INJ 250 MG in IV BAG 1 EACH IV SCH (18:38)
[2020-10-11] MEDS: ONDANSETRON 4 MG/2 ML VIAL IV PRN ×3 (01:10→23:17)
[2020-10-11] MEDS: metroNIDAZOLE INJ 250 MG in IV BAG 1 EACH IV SCH ×3 (03:10→17:14)
[2020-10-11 06:03] LABS: Basophils % 0.3 % (0.0-0.8); Eosinophils # 1.1 10*3/uL (0.0-0.87); Eosinophils % 7.3 % (0.00-10.9); Hematocrit 20.9 VOL% (35.7-47.0); Hemoglobin 7.3 GM/DL (12.0-16.0); Immature Granulocytes % 5.7 %; Immature Granulocytes Absolute 0.85 #; Lymphocytes # 1.4 10*3/uL (1.4-4.0); Lymphocytes % 9.6 % (21.3-54.2); Mean Corpuscular HGB Conc 34.9 GM/DL (32-36); Mean Corpuscular Volume 92.9 FL (87-102); Mean Platelet Volume 10.3 FL (9.6-12.0); Monocytes % 7.1 % (1.7-12.7); Platelet Count 389 T/CUMM (130-400); Red Blood Count 2.25 MC/CUMM (3.8-5.5); Red Cell Distribution Width 17.8 % (9.3-17.3)
[2020-10-11 06:33] LABS: Albumin 2.1 G/DL (3.4-5.0); Bilirubin,Total 0.4 MG/DL (0.2-1.0); Calcium 6.6 MG/DL (8.5-10.1); Osmolality,Calculated 279.5 MOS/KG (273-304); Potassium 3.5 MMOL/L (3.5-5.1); Total Protein 5.7 G/DL (6.4-8.2)
[2020-10-11] MEDS: PIPERACILLIN/TAZOBACTAM 3,375 MG in SODIUM CHLORIDE 0.9% 100 ML IV SCH ×3 (06:39→23:14)
[2020-10-11] MEDS: LEVOTHYROXINE 100 MCG TABLET PO SCH (06:39)
[2020-10-11] MEDS ORDERED: MORPHINE 4 MG/1 ML VIAL IV ONE (08:28)
[2020-10-11] MEDS: CALCIUM ACETATE 667 MG CAPSULE PO SCH ×3 (08:48→17:15)
[2020-10-11 08:59] LABS: Eosinophils 10 % (0-10); Metamyelocytes 3 %; Nucleated Red Blood Cells 3 (0-5); Segmented Neutrophils 69 % (50-85); Total Cells Counted 100
[2020-10-11 09:00] LABS: Band Neutrophils 3 % (0-10); Lymphocytes 9 % (20-55); Platelet Estimate Normal
[2020-10-11 09:01] LABS: Anisocytosis 1+; Hypochromasia 2+; Macrocytosis 1+; Ovalocytes 1+; Target Cells 2+
[2020-10-11] MEDS: MIDODRINE 5 MG TABLET PO SCH ×3 (09:45→23:13)
[2020-10-11] MEDS: PANTOPRAZOLE 40 MG VIAL IV SCH (09:45)
[2020-10-11] MEDS: DOCUSATE SODIUM 100 MG CAPSULE PO SCH (09:45)
[2020-10-11] MEDS: HYDROXYCHLOROQUINE 200 MG TABLET PO SCH (09:45)
[2020-10-11] MEDS: FERROUS SULFATE 325 MG TABLET PO SCH (09:45)
[2020-10-11] MEDS: MORPHINE 4 MG/1 ML VIAL IV PRN ×3 (14:30→23:18)
[2020-10-11] MEDS: SODIUM CHLORIDE 0.9% 1,000 ML IV SCH (14:49)
[2020-10-12] MEDS: ROSUVASTATIN 20 MG TABLET PO SCH ×2 (00:08→20:44)
[2020-10-12] MEDS: PANTOPRAZOLE 40 MG VIAL IV SCH ×3 (00:09→20:44)
[2020-10-12] MEDS: metroNIDAZOLE INJ 250 MG in IV BAG 1 EACH IV SCH ×3 (02:17→16:40)
[2020-10-12] MEDS: ONDANSETRON 4 MG/2 ML VIAL IV PRN ×5 (04:52→22:10)
[2020-10-12] MEDS: MORPHINE 4 MG/1 ML VIAL IV PRN ×5 (04:57→22:12)
[2020-10-12 06:04] LABS: Basophils % 0.3 % (0.0-0.8); Eosinophils # 1.4 10*3/uL (0.0-0.87); Eosinophils % 10.1 % (0.00-10.9); Hematocrit 20.5 VOL% (35.7-47.0); Hemoglobin 7.2 GM/DL (12.0-16.0); Immature Granulocytes % 6.1 %; Immature Granulocytes Absolute 0.82 #; Lymphocytes # 1.9 10*3/uL (1.4-4.0); Lymphocytes % 14.2 % (21.3-54.2); Mean Corpuscular HGB Conc 35.1 GM/DL (32-36); Mean Corpuscular Volume 93.6 FL (87-102); Mean Platelet Volume 10.2 FL (9.6-12.0); Monocytes % 7.9 % (1.7-12.7); Neutrophils % 61.4 % (38.7-73.9); Platelet Count 444 T/CUMM (130-400); Red Blood Count 2.19 MC/CUMM (3.8-5.5); Red Cell Distribution Width 17.9 % (9.3-17.3); White Blood Count 13.5 T/CUMM (4-12)
[2020-10-12 06:31] LABS: Band Neutrophils 1 % (0-10); Eosinophils 8 % (0-10); Hypochromasia 2+; Lymphocytes 23 % (20-55); Microcytosis 1+; Platelet Estimate Adequate; Segmented Neutrophils 61 % (50-85); Total Cells Counted 100
[2020-10-12 06:33] LABS: Albumin 2.1 G/DL (3.4-5.0); Bilirubin,Total 0.8 MG/DL (0.2-1.0); Calcium 6.9 MG/DL (8.5-10.1); Potassium 3.5 MMOL/L (3.5-5.1); Total Protein 6.1 G/DL (6.4-8.2)
[2020-10-12] MEDS: PIPERACILLIN/TAZOBACTAM 3,375 MG in SODIUM CHLORIDE 0.9% 100 ML IV SCH ×2 (08:22→18:28)
[2020-10-12] MEDS: DOCUSATE SODIUM 100 MG CAPSULE PO SCH (08:23)
[2020-10-12] MEDS: FERROUS SULFATE 325 MG TABLET PO SCH (08:24)
[2020-10-12] MEDS: CALCIUM ACETATE 667 MG CAPSULE PO SCH ×4 (08:24→16:42)
[2020-10-12] MEDS: LEVOTHYROXINE 100 MCG TABLET PO SCH (08:24)
[2020-10-12] MEDS: HYDROXYCHLOROQUINE 200 MG TABLET PO SCH (08:24)
[2020-10-12] MEDS: MIDODRINE 5 MG TABLET PO SCH ×3 (08:24→20:44)
[2020-10-12] MEDS ORDERED: EPOETIN ALFA-EPBX 10,000 UNIT/ML VIAL IV PRN (11:25)
[2020-10-13] MEDS: metroNIDAZOLE INJ 250 MG in IV BAG 1 EACH IV SCH ×3 (01:15→16:21)
[2020-10-13] MEDS: ONDANSETRON 4 MG/2 ML VIAL IV PRN ×5 (02:11→20:59)
[2020-10-13] MEDS: MORPHINE 4 MG/1 ML VIAL IV PRN ×5 (02:13→21:01)
[2020-10-13 03:44] LABS: Basophils % 0.2 % (0.0-0.8); Eosinophils # 1.2 10*3/uL (0.0-0.87); Eosinophils % 11.4 % (0.00-10.9); Hematocrit 20.6 VOL% (35.7-47.0); Hemoglobin 7.2 GM/DL (12.0-16.0); Immature Granulocytes % 4.2 %; Immature Granulocytes Absolute 0.44 #; Lymphocytes # 1.4 10*3/uL (1.4-4.0); Lymphocytes % 12.9 % (21.3-54.2); Mean Corpuscular Volume 93.2 FL (87-102); Mean Platelet Volume 9.9 FL (9.6-12.0); Monocytes % 9.4 % (1.7-12.7); Neutrophils % 61.9 % (38.7-73.9); Platelet Count 447 T/CUMM (130-400); Red Blood Count 2.21 MC/CUMM (3.8-5.5); White Blood Count 10.6 T/CUMM (4-12)
[2020-10-13 03:56] LABS: Calcium 7.4 MG/DL (8.5-10.1); Osmolality,Calculated 278.3 MOS/KG (273-304); Potassium 3.7 MMOL/L (3.5-5.1)
[2020-10-13 04:06] LABS: Eosinophils 17 % (0-10); Lymphocytes 17 % (20-55); Segmented Neutrophils 59 % (50-85); Total Cells Counted 100
[2020-10-13 04:07] LABS: Hypochromasia 2+; Microcytosis 1+; Platelet Estimate Adequate
[2020-10-13] MEDS: LEVOTHYROXINE 100 MCG TABLET PO SCH (06:13)
[2020-10-13] MEDS: PIPERACILLIN/TAZOBACTAM 3,375 MG in SODIUM CHLORIDE 0.9% 100 ML IV SCH ×2 (06:14→17:24)
[2020-10-13] MEDS: PANTOPRAZOLE 40 MG VIAL IV SCH ×2 (08:02→20:57)
[2020-10-13] MEDS: MIDODRINE 5 MG TABLET PO SCH ×3 (08:02→20:57)
[2020-10-13] MEDS: DOCUSATE SODIUM 100 MG CAPSULE PO SCH (08:02)
[2020-10-13] MEDS: HYDROXYCHLOROQUINE 200 MG TABLET PO SCH (08:03)
[2020-10-13] MEDS: FERROUS SULFATE 325 MG TABLET PO SCH (08:03)
[2020-10-13] MEDS: CALCIUM ACETATE 667 MG CAPSULE PO SCH ×4 (08:03→17:16)
[2020-10-13] MEDS: ROSUVASTATIN 20 MG TABLET PO SCH (20:57)
[2020-10-14] MEDS: metroNIDAZOLE INJ 250 MG in IV BAG 1 EACH IV SCH ×2 (00:20→09:00)
[2020-10-14] MEDS: ONDANSETRON 4 MG/2 ML VIAL IV PRN ×3 (01:14→10:04)
[2020-10-14] MEDS: MORPHINE 4 MG/1 ML VIAL IV PRN ×2 (01:15→05:39)
[2020-10-14] MEDS: PIPERACILLIN/TAZOBACTAM 3,375 MG in SODIUM CHLORIDE 0.9% 100 ML IV SCH (05:40)
[2020-10-14] MEDS: LEVOTHYROXINE 100 MCG TABLET PO SCH (05:41)
[2020-10-14 06:09] LABS: Basophils % 0.2 % (0.0-0.8); Eosinophils # 1.2 10*3/uL (0.0-0.87); Eosinophils % 12.2 % (0.00-10.9); Hematocrit 22.9 VOL% (35.7-47.0); Hemoglobin 7.9 GM/DL (12.0-16.0); Immature Granulocytes % 2.2 %; Immature Granulocytes Absolute 0.22 #; Lymphocytes # 1.1 10*3/uL (1.4-4.0); Lymphocytes % 11.1 % (21.3-54.2); Mean Corpuscular HGB Conc 34.5 GM/DL (32-36); Mean Corpuscular Volume 94.2 FL (87-102); Mean Platelet Volume 9.8 FL (9.6-12.0); Monocytes % 8.5 % (1.7-12.7); Neutrophils % 65.8 % (38.7-73.9); Platelet Count 506 T/CUMM (130-400); Red Blood Count 2.43 MC/CUMM (3.8-5.5); Red Cell Distribution Width 17.8 % (9.3-17.3); White Blood Count 10.2 T/CUMM (4-12)
[2020-10-14 06:22] LABS: Calcium 7.8 MG/DL (8.5-10.1); Osmolality,Calculated 274.7 MOS/KG (273-304); Potassium 3.2 MMOL/L (3.5-5.1)
[2020-10-14 06:44] LABS: Eosinophils 13 % (0-10); Hypochromasia 1+; Lymphocytes 13 % (20-55); Microcytosis 1+; Platelet Estimate Increased; Segmented Neutrophils 68 % (50-85); Total Cells Counted 100
[2020-10-14 07:37] VITALS: BP 95/62
[2020-10-14] MEDS: CALCIUM ACETATE 667 MG CAPSULE PO SCH ×2 (07:54→12:00)
[2020-10-14] MEDS: FERROUS SULFATE 325 MG TABLET PO SCH (08:00)
[2020-10-14] MEDS: HYDROXYCHLOROQUINE 200 MG TABLET PO SCH (08:00)
[2020-10-14] MEDS: PANTOPRAZOLE 40 MG VIAL IV SCH (08:00)
[2020-10-14] MEDS: MIDODRINE 5 MG TABLET PO SCH (08:00)
[2020-10-14] MEDS ORDERED: CHOLECALCIFEROL 1,000 UNIT TABLET PO SCH (09:00)
== END 2020-10-14 15:09 | disposition home or self-care (01) | DRG 326 ==
LOC: N.ED 23:35 → N.EDINP 23:35 → N.5E 10-04 04:14 → SUATTDRO 10-04 10:23 → N.ICU 10-05 14:49 → N.5E 10-07 13:45
PROVIDERS: ADMIT Emergency Medicine; ATTEND Internal Medicine

== ENCOUNTER 2021-11-24 06:11 | Observation (INO) ==
[2021-11-24 06:45] LABS: Basophils % 0.2 % (0.0-0.8); Hematocrit 30.1 VOL% (35.7-47.0); Hemoglobin 10.3 GM/DL (12.0-16.0); Immature Granulocytes % 1.5 %; Immature Granulocytes Absolute 0.36 #; Lymphocytes # 1.5 10*3/uL (1.4-4.0); Lymphocytes % 6.1 % (21.3-54.2); Mean Corpuscular HGB Conc 34.2 GM/DL (32-36); Mean Corpuscular Volume 97.4 FL (87-102); Mean Platelet Volume 10.7 FL (9.6-12.0); Monocytes # 1.1 10*3/uL (0.11-0.8); Monocytes % 4.7 % (1.7-12.7); NRBC # 0.08 10*3/uL; Neutrophils % 87.5 % (38.7-73.9); Platelet Count 397 T/CUMM (130-400); Red Blood Count 3.09 MC/CUMM (3.8-5.5); White Blood Count 24.3 T/CUMM (4-12)
[2021-11-24 07:04] LABS: Lymphocytes 8 % (20-55); Macrocytosis Slight; Platelet Estimate Adequate; Total Cells Counted 100
[2021-11-24 07:15] LABS: Alanine Aminotransferase 49 U/L (13-56); Albumin 3.6 G/DL (3.4-5.0); Alkaline Phosphatase 77 U/L (45-117); Aspartate Amino Transferase 16 U/L (0-37); Bilirubin,Total < 0.39 MG/DL (0.20-1.00); Blood Urea Nitrogen 82 MG/DL (7-18); Calcium 8.2 MG/DL (8.5-10.1); Carbon Dioxide 21 MMOL/L (21-32); Chloride 99 MMOL/L (98-107); Glucose 110 MG/DL (74-106); Osmolality,Calculated 289.5 MOS/KG (273-304); Sodium 132 MMOL/L (136-145); Total Protein 7.5 G/DL (6.4-8.2)
[2021-11-24] MEDS ORDERED: FAMOTIDINE 20 MG TABLET PO ONE (07:15)
[2021-11-24] MEDS ORDERED: DIAZEPAM 5 MG TABLET PO ONE (07:15)
[2021-11-24 07:23] LABS: Potassium 6.6 MMOL/L (3.5-5.1)
[2021-11-24] MEDS ORDERED: SODIUM CHLORIDE 0.9% 250 ML IV SCH (07:30)
[2021-11-24] MEDS ORDERED: ACETAMINOPHEN 325 MG TABLET PO PRN (09:20)
[2021-11-24] MEDS ORDERED: ALBUTEROL 2.5 MG/3 ML NEB RESP TX PRN (09:20)
[2021-11-24] MEDS ORDERED: hydrALAZINE 20 MG/1 ML VIAL IV PRN (09:20)
[2021-11-24] MEDS ORDERED: DEXTROSE 10% 250 ML BAG IV PRN (09:20)
[2021-11-24] MEDS ORDERED: GLUCAGON 1 MG VIAL IM PRN (09:20)
[2021-11-24] MEDS: SODIUM ZIRCONIUM CYCLOSILICATE 10 GM PACK PO SCH ×2 (10:05→16:13)
[2021-11-24] MEDS ORDERED: HEPARIN 10,000 UNIT/10 ML VIAL IV PRN (11:48)
[2021-11-24] MEDS: CALCIUM ACETATE 667 MG CAPSULE PO SCH (16:14)
[2021-11-24 16:34] LABS: Calcium 7.6 MG/DL (8.5-10.1); Osmolality,Calculated 277.8 MOS/KG (273-304); Potassium 4.4 MMOL/L (3.5-5.1)
[2021-11-24] MEDS: PANTOPRAZOLE 40 MG TABLET PO SCH (20:14)
[2021-11-24] MEDS: MIDODRINE 5 MG TABLET PO SCH (20:15)
[2021-11-24] MEDS ORDERED: SODIUM CHLORIDE 0.9% 1,000 ML IV ONE (21:00)
[2021-11-25 05:14] LABS: Basophils % 0.3 % (0.0-0.8); Eosinophils # 0.2 10*3/uL (0.0-0.87); Eosinophils % 1.1 % (0.00-10.9); Hematocrit 26.4 VOL% (35.7-47.0); Hemoglobin 8.8 GM/DL (12.0-16.0); Immature Granulocytes % 1.3 %; Immature Granulocytes Absolute 0.18 #; Lymphocytes # 2.2 10*3/uL (1.4-4.0); Lymphocytes % 15.5 % (21.3-54.2); Mean Corpuscular HGB Conc 33.3 GM/DL (32-36); Mean Corpuscular Volume 98.1 FL (87-102); Mean Platelet Volume 10.6 FL (9.6-12.0); Monocytes # 0.9 10*3/uL (0.11-0.8); Monocytes % 6.4 % (1.7-12.7); NRBC # 0.08 10*3/uL; Neutrophils % 75.4 % (38.7-73.9); Platelet Count 331 T/CUMM (130-400); Red Blood Count 2.69 MC/CUMM (3.8-5.5); Red Cell Distribution Width 20.3 % (9.3-17.3); White Blood Count 13.9 T/CUMM (4-12)
[2021-11-25 05:41] LABS: Calcium 6.8 MG/DL (8.5-10.1); Osmolality,Calculated 280.8 MOS/KG (273-304); Potassium 4.5 MMOL/L (3.5-5.1); Risk Ratio 2.68; Thyroid Stimulating Hormone 18.4 uIU/ml (0.358-3.74); VLDL Cholesterol 34.8 MG/DL
[2021-11-25] MEDS: MIDODRINE 5 MG TABLET PO SCH ×4 (07:53→21:41)
[2021-11-25] MEDS ORDERED: SODIUM CHLORIDE 0.9% 250 ML IV SCH (08:30)
[2021-11-25] MEDS ORDERED: BUPIVACAINE MPF 0.25% 10 ML VIAL ONE (08:43)
[2021-11-25] MEDS ORDERED: LIDOCAINE 1%/EPI INJ 20 ML VIAL ONE (08:43)
[2021-11-25] MEDS ORDERED: fentaNYL 100 MCG/2 ML VIAL ONE (08:44)
[2021-11-25] MEDS ORDERED: KETAMINE 500 MG/10 ML VIAL ONE (08:44)
[2021-11-25] MEDS ORDERED: HEPARIN 5,000 UNIT/1 ML VIAL ONE (08:44)
[2021-11-25] MEDS ORDERED: MIDAZOLAM 2 MG/2 ML VIAL ONE (08:44)
[2021-11-25] MEDS ORDERED: propofoL 200 MG/20 ML VIAL IV ONE ×2 (08:45)
[2021-11-25] MEDS ORDERED: LIDOCAINE 2% 5 ML VIAL ONE (08:45)
[2021-11-25] MEDS ORDERED: ETOMIDATE 40 MG/20 ML VIAL IV ONE (08:57)
[2021-11-25] MEDS ORDERED: predniSONE 20 MG TABLET PO SCH (09:00)
[2021-11-25] MEDS ORDERED: PANTOPRAZOLE 40 MG TABLET PO SCH (09:00)
[2021-11-25] MEDS: DOCUSATE SODIUM 100 MG CAPSULE PO SCH (10:54)
[2021-11-25] MEDS: CALCIUM ACETATE 667 MG CAPSULE PO SCH ×3 (10:54→16:52)
[2021-11-25] MEDS: CHOLECALCIFEROL 1,000 UNIT TABLET PO SCH (11:36)
[2021-11-25] MEDS: HYDROXYCHLOROQUINE 200 MG TABLET PO SCH (11:36)
[2021-11-25] MEDS: PANTOPRAZOLE 40 MG TABLET PO SCH ×2 (11:36→21:41)
[2021-11-25] MEDS: FERROUS SULFATE 325 MG TABLET PO SCH (11:36)
[2021-11-25] MEDS: LEVOTHYROXINE 200 MCG TABLET PO SCH (11:36)
[2021-11-25] MEDS: ROSUVASTATIN 20 MG TABLET PO SCH (11:36)
[2021-11-25] MEDS ORDERED: HYDROCORTISONE 100 MG VIAL IV SCH ×2 (14:00)
[2021-11-25] MEDS ORDERED: traMADol 50 MG TABLET PO PRN (14:20)
[2021-11-25] MEDS ORDERED: HYDROCORTISONE 100 MG VIAL IV ONE (14:23)
[2021-11-25] MEDS: HYDROCORTISONE 100 MG VIAL IV SCH (21:41)
[2021-11-25] MEDS: ONDANSETRON 4 MG/2 ML VIAL IV PRN (22:52)
[2021-11-26] MEDS: ONDANSETRON 4 MG/2 ML VIAL IV PRN ×2 (03:33→09:30)
[2021-11-26 05:16] LABS: Basophils % 0.1 % (0.0-0.8); Hematocrit 23.7 VOL% (35.7-47.0); Immature Granulocytes % 1.7 %; Immature Granulocytes Absolute 0.31 #; Lymphocytes # 1.1 10*3/uL (1.4-4.0); Lymphocytes % 5.7 % (21.3-54.2); Mean Corpuscular HGB Conc 33.8 GM/DL (32-36); Mean Corpuscular Volume 98.8 FL (87-102); Monocytes # 0.5 10*3/uL (0.11-0.8); Monocytes % 2.8 % (1.7-12.7); NRBC # 0.09 10*3/uL; Neutrophils % 89.7 % (38.7-73.9); Platelet Count 298 T/CUMM (130-400); Red Cell Distribution Width 20.1 % (9.3-17.3); White Blood Count 18.7 T/CUMM (4-12)
[2021-11-26] MEDS: HYDROCORTISONE 100 MG VIAL IV SCH ×2 (05:28→14:47)
[2021-11-26 05:42] LABS: Calcium 6.2 MG/DL (8.5-10.1); Potassium 5.8 MMOL/L (3.5-5.1)
[2021-11-26] MEDS ORDERED: LEVOTHYROXINE 25 MCG TABLET PO SCH (06:30)
[2021-11-26 07:54] VITALS: BP 86/52
[2021-11-26] MEDS: LEVOTHYROXINE 200 MCG TABLET PO SCH (09:07)
[2021-11-26] MEDS: ROSUVASTATIN 20 MG TABLET PO SCH (09:07)
[2021-11-26] MEDS: DOCUSATE SODIUM 100 MG CAPSULE PO SCH (09:08)
[2021-11-26] MEDS: MIDODRINE 5 MG TABLET PO SCH ×2 (09:08→14:57)
[2021-11-26] MEDS: PANTOPRAZOLE 40 MG TABLET PO SCH (09:09)
[2021-11-26] MEDS: CHOLECALCIFEROL 1,000 UNIT TABLET PO SCH (09:09)
[2021-11-26] MEDS: FERROUS SULFATE 325 MG TABLET PO SCH (09:09)
[2021-11-26] MEDS: HYDROXYCHLOROQUINE 200 MG TABLET PO SCH (09:10)
[2021-11-26] MEDS: CALCIUM ACETATE 667 MG CAPSULE PO SCH ×2 (09:10→11:43)
[2021-11-26 11:39] LABS: Hepatitis B Surface Ag Quant < 0.10 Index; Hepatitis B Surface Ag Result Non-Reactive (NonReactive)
== END 2021-11-26 16:00 | disposition home or self-care (01) ==
LOC: SUATTDRO → N.5E 06:11 → N.OR 06:11 → N.SDSINP 06:11 → SUATTDRO 09:20 → N.5E 14:52
PROVIDERS: ADMIT Internal Medicine; ATTEND Internal Medicine

== ENCOUNTER 2022-03-15 12:56 | Observation (INO) ==
[2022-03-15] MEDS ORDERED: SODIUM CHLORIDE 0.9% 500 ML IV STA ×2 (13:41→15:11)
[2022-03-15] MEDS ORDERED: MORPHINE 2 MG/1 ML SYRINGE IV STA (13:41)
[2022-03-15] MEDS ORDERED: ONDANSETRON 4 MG/2 ML VIAL IV STA (13:41)
[2022-03-15 13:48] LABS: Basophils % 0.2 % (0.0-0.8); Eosinophils # 0.1 10*3/uL (0.0-0.87); Eosinophils % 0.4 % (0.00-10.9); Hematocrit 25.2 VOL% (35.7-47.0); Hemoglobin 8.5 GM/DL (12.0-16.0); Immature Granulocytes % 1.3 %; Immature Granulocytes Absolute 0.21 #; Lymphocytes # 1.3 10*3/uL (1.4-4.0); Lymphocytes % 8.1 % (21.3-54.2); Mean Corpuscular HGB Conc 33.7 GM/DL (32-36); Mean Corpuscular Volume 88.7 FL (87-102); Mean Platelet Volume 10.8 FL (9.6-12.0); Monocytes # 0.9 10*3/uL (0.11-0.8); Monocytes % 5.6 % (1.7-12.7); NRBC # 0.02 10*3/uL; Neutrophils % 84.4 % (38.7-73.9); Platelet Count 366 T/CUMM (130-400); Red Blood Count 2.84 MC/CUMM (3.8-5.5); Red Cell Distribution Width 19.1 % (9.3-17.3); White Blood Count 16.4 T/CUMM (4-12)
[2022-03-15 14:24] LABS: Alanine Aminotransferase < 6 U/L (13-56); Albumin 2.3 G/DL (3.4-5.0); Alkaline Phosphatase 61 U/L (45-117); Aspartate Amino Transferase 11 U/L (0-37); Blood Urea Nitrogen 23 MG/DL (7-18); Carbon Dioxide 25 MMOL/L (21-32); Chloride 99 MMOL/L (98-107); Glucose 100 MG/DL (74-106); Osmolality,Calculated 276.8 MOS/KG (273-304); Potassium 3.6 MMOL/L (3.5-5.1); Sodium 137 MMOL/L (136-145); Total Protein 6.1 G/DL (6.4-8.2)
[2022-03-15 14:49] LABS: Platelet Estimate Increased
[2022-03-15 14:50] LABS: Ovalocytes Slight; Polychromasia Slight; Target Cells Slight
[2022-03-15 15:26] LABS: INR 1.1; PT Patient Result 12.2 SECS (10.1-12.1); Partial Thromboplastin Time 24.2 SECS (23.7-32.9)
[2022-03-15] MEDS ORDERED: ONDANSETRON 4 MG/2 ML VIAL IV PRN (17:52)
[2022-03-15] MEDS ORDERED: ACETAMINOPHEN 325 MG TABLET PO PRN (17:52)
[2022-03-15] MEDS ORDERED: KETOROLAC 30 MG/1 ML VIAL IV STA (17:52)
[2022-03-15] MEDS ORDERED: ROSUVASTATIN 20 MG TABLET PO SCH (21:00)
[2022-03-15] MEDS: predniSONE 20 MG TABLET PO SCH (21:30)
[2022-03-15] MEDS: PANTOPRAZOLE 40 MG TABLET PO SCH (21:30)
[2022-03-15] MEDS: MIDODRINE 5 MG TABLET PO SCH (21:30)
[2022-03-16] MEDS ORDERED: LEVOTHYROXINE 200 MCG TABLET PO SCH (06:00)
[2022-03-16 06:12] VITALS: BP 76/50
[2022-03-16] MEDS ORDERED: CALCIUM ACETATE 667 MG CAPSULE PO SCH (08:00)
[2022-03-16] MEDS ORDERED: FERROUS SULFATE 325 MG TABLET PO SCH (09:00)
[2022-03-16] MEDS ORDERED: CHOLECALCIFEROL 1,000 UNIT TABLET PO SCH (09:00)
[2022-03-16] MEDS ORDERED: HYDROXYCHLOROQUINE 200 MG TABLET PO SCH (09:00)
[2022-03-16] MEDS ORDERED: DOCUSATE SODIUM 100 MG CAPSULE PO SCH (09:00)
[2022-03-16] MEDS ORDERED: ASPIRIN EC 81 MG TABLET PO SCH (09:00)
[2022-03-16] MEDS ORDERED: APIXABAN 5 MG TABLET PO SCH (09:00)
[2022-03-16] MEDS: PANTOPRAZOLE 40 MG TABLET PO SCH (09:14)
[2022-03-16] MEDS: predniSONE 20 MG TABLET PO SCH (09:15)
[2022-03-16] MEDS: MIDODRINE 5 MG TABLET PO SCH (09:15)
== END 2022-03-16 11:08 | disposition home or self-care (01) ==
LOC: N.ED 12:56 → N.EDINP 12:56 → N.2W 21:04
PROVIDERS: ADMIT Internal Medicine; ATTEND Internal Medicine

== ENCOUNTER 2022-03-19 22:13 | Inpatient (IN) ==
[2022-03-19 23:12] LABS: Basophils # 0.1 10*3/uL (0.0-0.2); Basophils % 0.3 % (0.0-0.8); Eosinophils % 0.2 % (0.00-10.9); Hematocrit 24.7 VOL% (35.7-47.0); Hemoglobin 8.1 GM/DL (12.0-16.0); Immature Granulocytes % 1.6 %; Lymphocytes # 1.7 10*3/uL (1.4-4.0); Mean Corpuscular HGB Conc 32.8 GM/DL (32-36); Mean Corpuscular Volume 90.1 FL (87-102); Mean Platelet Volume 11.3 FL (9.6-12.0); Monocytes # 1.3 10*3/uL (0.11-0.8); Monocytes % 6.8 % (1.7-12.7); NRBC # 0.04 10*3/uL; Neutrophils % 82.1 % (38.7-73.9); Platelet Count 411 T/CUMM (130-400); Red Blood Count 2.74 MC/CUMM (3.8-5.5); Red Cell Distribution Width 18.8 % (9.3-17.3); White Blood Count 18.7 T/CUMM (4-12)
[2022-03-19 23:27] LABS: INR 1.1; PT Patient Result 12.4 SECS (10.1-12.1); Partial Thromboplastin Time 27.5 SECS (23.7-32.9)
[2022-03-19 23:33] LABS: Albumin 2.2 G/DL (3.4-5.0); Bilirubin,Total 0.4 MG/DL (0.20-1.00); Calcium 8.7 MG/DL (8.5-10.1); Osmolality,Calculated 283.4 MOS/KG (273-304); Potassium 4.2 MMOL/L (3.5-5.1); Total Protein 5.7 G/DL (6.4-8.2)
[2022-03-19] MEDS ORDERED: LABETALOL 20 MG/4 ML SYRINGE IV STA (23:55)
[2022-03-20] MEDS ORDERED: SODIUM CHLORIDE 0.9% 500 ML IV STA (00:13)
[2022-03-20] MEDS: ONDANSETRON 4 MG/2 ML VIAL IV PRN ×3 (02:42→20:10)
[2022-03-20] MEDS: MORPHINE 2 MG/1 ML SYRINGE IV PRN ×2 (02:42→09:05)
[2022-03-20] MEDS: LEVALBUTEROL 1.25 MG/3 ML NEB RESP TX SCH ×3 (02:45→19:30)
[2022-03-20] MEDS ORDERED: MAGNESIUM SULF RIDER 2 GM/50 ML PREMIX IV ONE (03:21)
[2022-03-20] MEDS ORDERED: DEXTROSE 10% 250 ML BAG IV PRN (03:21)
[2022-03-20] MEDS ORDERED: GLUCAGON 1 MG VIAL IM PRN (03:21)
[2022-03-20] MEDS ORDERED: cefTRIAXone 1,000 MG in SODIUM CHLORIDE 0.9% 100 ML IV SCH (03:30)
[2022-03-20] MEDS: AZITHROMYCIN INJ 500 MG in SODIUM CHLORIDE 0.9% 250 ML IV SCH (04:14)
[2022-03-20 04:51] LABS: Basophils % 0.3 % (0.0-0.8); Eosinophils # 0.1 10*3/uL (0.0-0.87); Eosinophils % 0.4 % (0.00-10.9); Hematocrit 21.3 VOL% (35.7-47.0); Immature Granulocytes % 1.8 %; Immature Granulocytes Absolute 0.29 #; Lymphocytes # 1.9 10*3/uL (1.4-4.0); Lymphocytes % 11.6 % (21.3-54.2); Mean Corpuscular HGB Conc 32.9 GM/DL (32-36); Mean Corpuscular Volume 88.8 FL (87-102); Mean Platelet Volume 10.9 FL (9.6-12.0); Monocytes # 1.3 10*3/uL (0.11-0.8); Monocytes % 8.3 % (1.7-12.7); NRBC # 0.02 10*3/uL; Neutrophils % 77.6 % (38.7-73.9); Platelet Count 320 T/CUMM (130-400); Red Cell Distribution Width 18.6 % (9.3-17.3)
[2022-03-20 05:34] LABS: Calcium 7.7 MG/DL (8.5-10.1); Osmolality,Calculated 287.1 MOS/KG (273-304); Potassium 4.1 MMOL/L (3.5-5.1)
[2022-03-20] MEDS: LEVOTHYROXINE 200 MCG TABLET PO SCH (05:42)
[2022-03-20 06:13] LABS: Eosinophils 2 % (0-10); Lymphocytes 13 % (20-55); Total Cells Counted 100
[2022-03-20 06:14] LABS: Hypochromia Slight; Microcytosis Slight; Platelet Estimate Normal; Polychromasia Slight
[2022-03-20] MEDS: IPRATROPIUM 500 MCG/2.5 ML NEB RESP TX SCH ×3 (07:10→19:30)
[2022-03-20] MEDS: MIDODRINE 5 MG TABLET PO SCH ×3 (08:42→20:10)
[2022-03-20] MEDS: FERROUS SULFATE 325 MG TABLET PO SCH (08:42)
[2022-03-20] MEDS: predniSONE 20 MG TABLET PO SCH (08:42)
[2022-03-20] MEDS: CALCIUM ACETATE 667 MG CAPSULE PO SCH ×3 (08:43→16:13)
[2022-03-20] MEDS: APIXABAN 5 MG TABLET PO SCH ×2 (08:49→20:10)
[2022-03-20] MEDS ORDERED: ASPIRIN EC 81 MG TABLET PO SCH (09:00)
[2022-03-20] MEDS ORDERED: PANTOPRAZOLE 40 MG TABLET PO SCH (09:00)
[2022-03-20] MEDS ORDERED: VANCOMYCIN INJ 500 MG in SODIUM CHLORIDE 0.9% 100 ML IV PRN (15:11)
[2022-03-20] MEDS: PIPERACILLIN/TAZOBACTAM 3,375 MG in SODIUM CHLORIDE 0.9% 100 ML IV SCH (16:10)
[2022-03-20] MEDS ORDERED: SODIUM CHLORIDE 0.9% 500 ML IV ONE (17:00)
[2022-03-20] MEDS ORDERED: VANCOMYCIN INJ 1,500 MG in SODIUM CHLORIDE 0.9% 500 ML IV ONE (20:00)
[2022-03-20] MEDS: PANTOPRAZOLE 40 MG TABLET PO SCH (20:10)
[2022-03-20] MEDS: ROSUVASTATIN 20 MG TABLET PO SCH (20:10)
[2022-03-20] MEDS: traMADol 50 MG TABLET PO PRN (20:10)
[2022-03-20] MEDS ORDERED: MORPHINE 2 MG/1 ML SYRINGE IV ONE (20:35)
[2022-03-21] MEDS: IPRATROPIUM 500 MCG/2.5 ML NEB RESP TX SCH ×4 (00:36→19:32)
[2022-03-21] MEDS: LEVALBUTEROL 1.25 MG/3 ML NEB RESP TX SCH ×4 (00:37→19:32)
[2022-03-21] MEDS: AZITHROMYCIN INJ 500 MG in SODIUM CHLORIDE 0.9% 250 ML IV SCH (03:00)
[2022-03-21] MEDS: PIPERACILLIN/TAZOBACTAM 3,375 MG in SODIUM CHLORIDE 0.9% 100 ML IV SCH ×2 (03:55→16:07)
[2022-03-21 04:52] LABS: Basophils % 0.1 % (0.0-0.8); Eosinophils % 0.1 % (0.00-10.9); Hematocrit 22.3 VOL% (35.7-47.0); Hemoglobin 7.3 GM/DL (12.0-16.0); Immature Granulocytes % 1.5 %; Lymphocytes # 1.3 10*3/uL (1.4-4.0); Lymphocytes % 6.3 % (21.3-54.2); Mean Corpuscular HGB Conc 32.7 GM/DL (32-36); Mean Corpuscular Volume 89.2 FL (87-102); Mean Platelet Volume 11.4 FL (9.6-12.0); Monocytes # 0.9 10*3/uL (0.11-0.8); Monocytes % 4.5 % (1.7-12.7); Neutrophils % 87.5 % (38.7-73.9); Platelet Count 366 T/CUMM (130-400); Red Cell Distribution Width 18.6 % (9.3-17.3); White Blood Count 20.2 T/CUMM (4-12)
[2022-03-21 05:12] LABS: % Iron Saturation 19.9 % (18-50); Ferritin 1043.9 ng/mL (8-252)
[2022-03-21 05:14] LABS: Hypochromia Slight; Lymphocytes 4 % (20-55); Microcytosis Slight; Platelet Estimate Adequate; Total Cells Counted 100
[2022-03-21 05:15] LABS: Folate 4.86 NG/ML (5.38-24.0); Vitamin B12 577 PG/ML (211-911)
[2022-03-21 05:40] LABS: Free T4 (Free Thyroxine) 1.17 NG/DL (0.76-1.46); Thyroid Stimulating Hormone 0.052 uIU/ml (0.358-3.74)
[2022-03-21] MEDS: LEVOTHYROXINE 200 MCG TABLET PO SCH (05:55)
[2022-03-21 06:06] LABS: Sedimentation Rate-Westergren 83 MM/HR (0-20)
[2022-03-21] MEDS ORDERED: MORPHINE 2 MG/1 ML SYRINGE IV PRN (08:20)
[2022-03-21] MEDS: MORPHINE 2 MG/1 ML SYRINGE IV PRN (08:45)
[2022-03-21] MEDS: ONDANSETRON 4 MG/2 ML VIAL IV PRN (08:49)
[2022-03-21] MEDS: MIDODRINE 5 MG TABLET PO SCH ×3 (08:53→21:08)
[2022-03-21] MEDS ORDERED: HEPARIN 10,000 UNIT/10 ML VIAL IV SCH (10:15)
[2022-03-21] MEDS: MAGNESIUM CHLORIDE 64 MG TABLET PO SCH (15:07)
[2022-03-21] MEDS: PANTOPRAZOLE 40 MG TABLET PO SCH ×2 (15:08→21:09)
[2022-03-21] MEDS: FOLIC ACID 1 MG TABLET PO SCH (15:08)
[2022-03-21] MEDS: APIXABAN 5 MG TABLET PO SCH ×2 (15:09→21:09)
[2022-03-21] MEDS: FERROUS SULFATE 325 MG TABLET PO SCH (15:11)
[2022-03-21] MEDS: CHOLECALCIFEROL 1,000 UNIT TABLET PO SCH (15:11)
[2022-03-21] MEDS: predniSONE 20 MG TABLET PO SCH (15:12)
[2022-03-21] MEDS: CALCIUM ACETATE 667 MG CAPSULE PO SCH ×3 (16:17→16:28)
[2022-03-21] MEDS ORDERED: VANCOMYCIN INJ 500 MG in SODIUM CHLORIDE 0.9% 100 ML IV ONE (17:00)
[2022-03-21] MEDS: ROSUVASTATIN 20 MG TABLET PO SCH (21:08)
[2022-03-22] MEDS: IPRATROPIUM 500 MCG/2.5 ML NEB RESP TX SCH ×4 (00:01→19:02)
[2022-03-22] MEDS: LEVALBUTEROL 1.25 MG/3 ML NEB RESP TX SCH ×4 (00:02→19:02)
[2022-03-22 05:16] LABS: Basophils % 0.1 % (0.0-0.8); Eosinophils % 0.1 % (0.00-10.9); Hematocrit 23.1 VOL% (35.7-47.0); Hemoglobin 7.4 GM/DL (12.0-16.0); Immature Granulocytes % 1.4 %; Immature Granulocytes Absolute 0.22 #; Lymphocytes # 0.9 10*3/uL (1.4-4.0); Lymphocytes % 5.8 % (21.3-54.2); Mean Corpuscular Volume 89.2 FL (87-102); Mean Platelet Volume 11.8 FL (9.6-12.0); Monocytes # 0.7 10*3/uL (0.11-0.8); Monocytes % 4.3 % (1.7-12.7); NRBC # 0.03 10*3/uL; Neutrophils % 88.3 % (38.7-73.9); Platelet Count 456 T/CUMM (130-400); Red Blood Count 2.59 MC/CUMM (3.8-5.5); Red Cell Distribution Width 18.6 % (9.3-17.3); White Blood Count 16.3 T/CUMM (4-12)
[2022-03-22] MEDS: LEVOTHYROXINE 150 MCG TABLET PO SCH (05:35)
[2022-03-22] MEDS: ONDANSETRON 4 MG/2 ML VIAL IV PRN ×2 (05:35→14:18)
[2022-03-22] MEDS: traMADol 50 MG TABLET PO PRN (05:36)
[2022-03-22] MEDS: APIXABAN 5 MG TABLET PO SCH ×2 (10:16→20:28)
[2022-03-22] MEDS: MIDODRINE 5 MG TABLET PO SCH ×3 (10:16→20:28)
[2022-03-22] MEDS: predniSONE 20 MG TABLET PO SCH (10:17)
[2022-03-22] MEDS: FERROUS SULFATE 325 MG TABLET PO SCH (10:21)
[2022-03-22] MEDS: PANTOPRAZOLE 40 MG TABLET PO SCH ×2 (10:21→20:28)
[2022-03-22] MEDS: FOLIC ACID 1 MG TABLET PO SCH (10:21)
[2022-03-22] MEDS: CHOLECALCIFEROL 1,000 UNIT TABLET PO SCH (10:22)
[2022-03-22] MEDS: MAGNESIUM CHLORIDE 64 MG TABLET PO SCH (10:23)
[2022-03-22] MEDS: CALCIUM ACETATE 667 MG CAPSULE PO SCH ×3 (10:24→17:43)
[2022-03-22] MEDS ORDERED: fentaNYL 12 MCG/HR PATCH TRANSDERM SCH (11:00)
[2022-03-22] MEDS: MORPHINE 2 MG/1 ML SYRINGE IV PRN (13:59)
[2022-03-22] MEDS: DOCUSATE SODIUM 100 MG CAPSULE PO SCH ×2 (14:17→20:28)
[2022-03-22] MEDS: POLYETHYLENE GLYCOL POWDER 17 GM PACK PO SCH ×2 (14:18→20:29)
[2022-03-22] MEDS: MEROPENEM 500 MG in SODIUM CHLORIDE 0.9% 100 ML IV SCH (20:27)
[2022-03-22] MEDS: ROSUVASTATIN 20 MG TABLET PO SCH (20:28)
[2022-03-23] MEDS: IPRATROPIUM 500 MCG/2.5 ML NEB RESP TX SCH ×4 (00:01→20:09)
[2022-03-23] MEDS: LEVALBUTEROL 1.25 MG/3 ML NEB RESP TX SCH ×4 (00:01→20:09)
[2022-03-23] MEDS: ONDANSETRON 4 MG/2 ML VIAL IV PRN ×2 (01:38→12:15)
[2022-03-23] MEDS: MORPHINE 2 MG/1 ML SYRINGE IV PRN ×2 (01:38→12:15)
[2022-03-23 05:16] LABS: Basophils % 0.2 % (0.0-0.8); Eosinophils % 0.2 % (0.00-10.9); Hematocrit 23.8 VOL% (35.7-47.0); Hemoglobin 7.7 GM/DL (12.0-16.0); Immature Granulocytes % 3.9 %; Immature Granulocytes Absolute 0.71 #; Lymphocytes # 1.6 10*3/uL (1.4-4.0); Lymphocytes % 8.8 % (21.3-54.2); Mean Corpuscular HGB Conc 32.4 GM/DL (32-36); Mean Corpuscular Volume 90.2 FL (87-102); Mean Platelet Volume 11.5 FL (9.6-12.0); Monocytes # 1.2 10*3/uL (0.11-0.8); Monocytes % 6.9 % (1.7-12.7); NRBC # 0.04 10*3/uL; Platelet Count 573 T/CUMM (130-400); Red Blood Count 2.64 MC/CUMM (3.8-5.5); Red Cell Distribution Width 18.7 % (9.3-17.3); White Blood Count 18.1 T/CUMM (4-12)
[2022-03-23 05:44] LABS: Eosinophils 1 % (0-10); Hypochromia Slight; Lymphocytes 14 % (20-55); Microcytosis Slight; Platelet Estimate Adequate; Total Cells Counted 100
[2022-03-23] MEDS: LEVOTHYROXINE 150 MCG TABLET PO SCH (05:54)
[2022-03-23] MEDS ORDERED: EPOETIN ALFA-EPBX 3,000 UNIT/ML VIAL IV PRN (08:28)
[2022-03-23] MEDS ORDERED: [UNRECOGNIZED DRUG - OTHER] IV SCH (08:30)
[2022-03-23] MEDS: CALCIUM ACETATE 667 MG CAPSULE PO SCH ×3 (11:32→16:46)
[2022-03-23] MEDS: CHOLECALCIFEROL 1,000 UNIT TABLET PO SCH (11:53)
[2022-03-23] MEDS: FOLIC ACID 1 MG TABLET PO SCH (11:53)
[2022-03-23] MEDS: predniSONE 20 MG TABLET PO SCH (11:53)
[2022-03-23] MEDS: APIXABAN 5 MG TABLET PO SCH ×2 (11:53→20:45)
[2022-03-23] MEDS: DOCUSATE SODIUM 100 MG CAPSULE PO SCH ×2 (11:53→20:45)
[2022-03-23] MEDS: PANTOPRAZOLE 40 MG TABLET PO SCH ×2 (11:53→20:45)
[2022-03-23] MEDS: FERROUS SULFATE 325 MG TABLET PO SCH (11:53)
[2022-03-23] MEDS: MIDODRINE 5 MG TABLET PO SCH ×3 (11:53→20:45)
[2022-03-23] MEDS: MAGNESIUM CHLORIDE 64 MG TABLET PO SCH (11:53)
[2022-03-23] MEDS: POLYETHYLENE GLYCOL POWDER 17 GM PACK PO SCH ×2 (11:54→21:05)
[2022-03-23 15:41] LABS: Hb A2 3.2 % (2.0-3.3); Hb F 0.2 % (0.0-0.9); Variant 1 34.6 Hb C % (0.0)
[2022-03-23] MEDS: MEROPENEM 500 MG in SODIUM CHLORIDE 0.9% 100 ML IV SCH (20:45)
[2022-03-23] MEDS: ROSUVASTATIN 20 MG TABLET PO SCH (20:45)
[2022-03-24] MEDS: LEVALBUTEROL 1.25 MG/3 ML NEB RESP TX SCH ×4 (00:51→19:20)
[2022-03-24] MEDS: IPRATROPIUM 500 MCG/2.5 ML NEB RESP TX SCH ×4 (00:51→19:20)
[2022-03-24 05:39] LABS: Basophils # 0.1 10*3/uL (0.0-0.2); Basophils % 0.5 % (0.0-0.8); Eosinophils # 0.1 10*3/uL (0.0-0.87); Eosinophils % 0.4 % (0.00-10.9); Hemoglobin 8.1 GM/DL (12.0-16.0); Immature Granulocytes % 8.6 %; Immature Granulocytes Absolute 1.62 #; Lymphocytes # 2.3 10*3/uL (1.4-4.0); Lymphocytes % 12.1 % (21.3-54.2); Mean Corpuscular HGB Conc 32.4 GM/DL (32-36); Mean Corpuscular Volume 89.9 FL (87-102); Monocytes # 1.4 10*3/uL (0.11-0.8); Monocytes % 7.6 % (1.7-12.7); NRBC # 0.15 10*3/uL; Neutrophils % 70.8 % (38.7-73.9); Platelet Count 597 T/CUMM (130-400); Red Blood Count 2.78 MC/CUMM (3.8-5.5); Red Cell Distribution Width 19.3 % (9.3-17.3); White Blood Count 18.7 T/CUMM (4-12)
[2022-03-24 05:57] LABS: Calcium 8.7 MG/DL (8.5-10.1); Osmolality,Calculated 280.5 MOS/KG (273-304); Potassium 5.3 MMOL/L (3.5-5.1)
[2022-03-24 06:07] LABS: Band Neutrophils 2 % (0-10); Hypochromia Slight; Lymphocytes 17 % (20-55); Metamyelocytes 1 %; Microcytosis 1+; Polychromasia Slight; Total Cells Counted 100
[2022-03-24 06:08] LABS: Target Cells Few
[2022-03-24] MEDS: LEVOTHYROXINE 150 MCG TABLET PO SCH (06:41)
[2022-03-24 08:56] LABS: Hemoglobin A1 (Alkaline) 61.4 % (96.5-98.5)
[2022-03-24 09:37] LABS: Hgb Elect Summary Review SEE COMMENTS
[2022-03-24] MEDS: POLYETHYLENE GLYCOL POWDER 17 GM PACK PO SCH ×2 (10:07→21:35)
[2022-03-24] MEDS: MAGNESIUM CHLORIDE 64 MG TABLET PO SCH (10:13)
[2022-03-24] MEDS: CALCIUM ACETATE 667 MG CAPSULE PO SCH ×3 (10:13→16:54)
[2022-03-24] MEDS: DOCUSATE SODIUM 100 MG CAPSULE PO SCH ×2 (10:14→21:32)
[2022-03-24] MEDS: FERROUS SULFATE 325 MG TABLET PO SCH (10:14)
[2022-03-24] MEDS: MIDODRINE 5 MG TABLET PO SCH ×3 (10:14→21:34)
[2022-03-24] MEDS: predniSONE 20 MG TABLET PO SCH (10:14)
[2022-03-24] MEDS: CHOLECALCIFEROL 1,000 UNIT TABLET PO SCH (10:14)
[2022-03-24] MEDS: PANTOPRAZOLE 40 MG TABLET PO SCH ×2 (10:15→21:34)
[2022-03-24] MEDS: FOLIC ACID 1 MG TABLET PO SCH (10:15)
[2022-03-24] MEDS: APIXABAN 5 MG TABLET PO SCH ×2 (10:15→21:33)
[2022-03-24] MEDS: ONDANSETRON 4 MG/2 ML VIAL IV PRN (12:03)
[2022-03-24] MEDS: MEROPENEM 500 MG in SODIUM CHLORIDE 0.9% 100 ML IV SCH (21:33)
[2022-03-24] MEDS: ROSUVASTATIN 20 MG TABLET PO SCH (21:33)
[2022-03-25] MEDS: LEVALBUTEROL 1.25 MG/3 ML NEB RESP TX SCH ×3 (00:25→13:58)
[2022-03-25] MEDS: IPRATROPIUM 500 MCG/2.5 ML NEB RESP TX SCH ×3 (00:25→13:58)
[2022-03-25] MEDS: LEVOTHYROXINE 150 MCG TABLET PO SCH (05:05)
[2022-03-25] MEDS: ONDANSETRON 4 MG/2 ML VIAL IV PRN ×2 (08:27→13:25)
[2022-03-25] MEDS: MIDODRINE 5 MG TABLET PO SCH (08:28)
[2022-03-25] MEDS: CALCIUM ACETATE 667 MG CAPSULE PO SCH ×2 (08:29→13:38)
[2022-03-25] MEDS: PANTOPRAZOLE 40 MG TABLET PO SCH (08:29)
[2022-03-25] MEDS: APIXABAN 5 MG TABLET PO SCH (08:29)
[2022-03-25] MEDS: MORPHINE 2 MG/1 ML SYRINGE IV PRN (13:26)
[2022-03-25] MEDS: predniSONE 20 MG TABLET PO SCH (13:36)
[2022-03-25] MEDS: CHOLECALCIFEROL 1,000 UNIT TABLET PO SCH (13:37)
[2022-03-25] MEDS: FOLIC ACID 1 MG TABLET PO SCH (13:37)
[2022-03-25] MEDS: DOCUSATE SODIUM 100 MG CAPSULE PO SCH (13:37)
[2022-03-25] MEDS: MAGNESIUM CHLORIDE 64 MG TABLET PO SCH (13:37)
[2022-03-25] MEDS: FERROUS SULFATE 325 MG TABLET PO SCH (13:37)
[2022-03-25] MEDS: POLYETHYLENE GLYCOL POWDER 17 GM PACK PO SCH (13:38)
[2022-03-25 15:00] VITALS: BP 83/46
[2022-03-26] MEDS ORDERED: CIPROFLOXACIN 500 MG TABLET PO SCH (18:00)
== END 2022-03-25 16:40 | disposition home or self-care (01) | DRG 314 ==
LOC: N.ED 22:13 → SUATTDRO 03-20 03:21 → N.EDINP 03-20 03:21 → N.TELEN 03-20 04:33
PROVIDERS: ADMIT Internal Medicine Geriatric Medicine; ATTEND Hospitalist